=== PATIENT | female | born 1955 | race Caucasian/White ===

== ENCOUNTER 2019-02-23 13:53 | Emergency (ER) | payer OTHER ==
[2019-02-23 15:09] LABS: Absolute Lymphocytes (CBC) 2.5 K/uL (0.7-4.9); Basophils % 0.7 % (0-1.3); Hematocrit 40.7 % (36.0-45.0); MPV 7.5 fL (7.6-11.3); RBC Red Blood Cell Count 4.49 M/uL (3.86-4.86)
[2019-02-23 15:23] LABS: C-Reactive Protein 4.89 mg/L (<3.00); Potassium 3.4 mmol/L (3.5-5.1)
[2019-02-23] MEDS ORDERED: LIDOCAINE 1% MPF 30 ML VIAL ONE (15:53)
[2019-02-23] MEDS ORDERED: LIDOCAINE 1% MPF 5 ML VIAL ONE (15:55)
[2019-02-23 17:31] LABS: Appearance TURBID (CLEAR); Body Fluid Source SYNOVIAL; Color of fluid Yellow (COLORLESS)
[2019-02-23 17:33] LABS: Body Fluid WBC 25850 /mm^3
--- NOTE | 2019-02-23 17:45 | RAD REPORT ---
EXAM DESCRIPTION: RAD - Wrist Left 3 View - 02/23/2019 5:29 pm CLINICAL HISTORY: Swelling;Pain Pain COMPARISON: No comparisons FINDINGS: Soft tissue swelling is seen about the wrist. No fracture or dislocation seen.
--- NOTE | 2019-02-23 18:05 | ER ---
Nurse's Notes [facility] Name: Helga Farnsworth Age: 63 yrs Sex: Female : 1955 Arrival Date: 02/23/2019 Time: 13:56 Bed 13 Private MD: Werner Rooney R Diagnosis: Pain in left wrist Presentation: 02/23 14:00 Presenting complaint: Patient states: it started hurting yesterday, and it has been tw2 swollen and red and Dr. Rooney was worried about me being septic and he said it might just be gout but to come here. Transition of care: patient was not received from another setting of care. Onset of symptoms was February 23, 2019. Risk Assessment: Do you want to hurt yourself or someone else? Patient reports no desire to harm self or others. Initial Sepsis Screen: Does the patient meet any 2 criteria? No. Patient's initial sepsis screen is negative. Does the patient have a suspected source of infection? No. Patient's initial sepsis screen is negative. Care prior to arrival: None. 14:00 Method Of Arrival: Ambulatory tw2 14:00 Acuity: AARON 3 tw2 Triage Assessment: 14:01 General: Appears in no apparent distress. Behavior is calm, cooperative, appropriate tw2 for age. Pain: Complains of pain in left hand. Musculoskeletal: Swelling present in left hand. Historical: - Allergies: 14:04 HYDROCODONE; tw2 14:04 Iodine; IV contrast; tw2 - Home Meds: 14:04 metformin 1,000 mg oral tab 1 tab 2 times per day [Active]; tw2 lisinopril-hydrochlorothiazide 20-25 mg Oral tab 1 tab once daily [Active]; glimepiride 4 mg Oral tab 1 tab twice a day [Active]; trazodone 100 mg Oral tab 1 tab daily [Active]; cyclobenzaprine 10 mg oral tab [Active]; simvastatin 40 mg Oral tab 1 tab once daily [Active]; gabapentin 300 mg oral cap 2 caps nightly [Active]; basaglar 15 units sq [Active]; - PMHx: 14:04 Depression; Diabetes - NIDDM; Hyperlipidemia; Hypertension; tw2 - Immunization history:: Adult Immunizations. - Social history:: Smoking status: Patient uses tobacco products, smokes one pack cigarettes per day. - Ebola Screening: : Patient denies travel to an Ebola-affected area in the 21 days before illness onset. Screenin:12 Abuse screen: Denies threats or abuse. Nutritional screening: No deficits noted. tw2 Tuberculosis screening: No symptoms or risk factors identified. Fall Risk None identified. Assessment: 14:10 General: Appears in no apparent distress. comfortable, Behavior is calm, cooperative. rb1 Pain: Complains of pain in left wrist Pain currently is 8 out of 10 on a pain scale. Pain began 1 day ago. Neuro: Level of Consciousness is awake, alert, obeys commands, Oriented to person, place, time, situation. Cardiovascular: Capillary refill < 3 seconds is brisk in bilateral fingers. Respiratory: Airway is patent Respiratory effort is even, unlabored, Respiratory pattern is regular, symmetrical. GI: No signs and/or symptoms were reported involving the gastrointestinal system. : No signs and/or symptoms were reported regarding the genitourinary system. Derm: Skin is pink, warm \T\ dry. Musculoskeletal: Range of motion: limited in left hand and wrist Swelling present in left wrist and left hand. 15:00 Reassessment: Patient appears in no apparent distress at this time. No changes from rb1 previously documented assessment. 16:00 Reassessment: Patient appears in no apparent distress at this time. Patient and/or rb1 family updated on plan of care and expected duration. Pain level reassessed. Patient is alert, oriented x 3, equal unlabored respirations, skin warm/dry/pink. Set up for a wrist aspiration procedure. 16:15 Reassessment: Dr. Koo at pt. bedside performing wrist aspiration. rb1 16:50 Reassessment: Patient appears in no apparent distress at this time. Patient and/or rb1 family updated on plan of care and expected duration. Pain level reassessed. Patient is alert, oriented x 3, equal unlabored respirations, skin warm/dry/pink. Pt. is sitting in the bedside chair watching TV. 17:40 Reassessment: Patient appears in no apparent distress at this time. No changes from rb1 previously documented assessment. 18:20 Reassessment: Patient appears in no apparent distress at this time. Patient and/or rb1 family updated on plan of care and expected duration. Pain level reassessed. Patient is alert, oriented x 3, equal unlabored respirations, skin warm/dry/pink. Vital Signs: 14:01 BP 134 / 78; Pulse 102; Resp 17; Temp 97.8(O); Pulse Ox 97% on R/A; Weight 68.04 kg tw2 (R); Height 5 ft. 7 in. (170.18 cm); Pain 8/10; 15:40 BP 134 / 82; Pulse 95; Resp 16; Temp 98.0(O); Pulse Ox 96% on R/A; mh5 16:46 BP 134 / 82; Pulse 89; Resp 18; Temp 97.9(O); Pulse Ox 97% on R/A; mh5 17:39 BP 137 / 76; Pulse 88; Resp 17; Pulse Ox 95% on R/A; rb1 18:20 BP 124 / 73; Pulse 89; Resp 16; Pulse Ox 96% on R/A; rb1 14:01 Body Mass Index 23.49 (68.04 kg, 170.18 cm) tw2 ED Course: 13:56 Patient arrived in ED. mr 13:56 Werner Rooney MD is Private Physician. mr 14:01 Triage completed. tw2 14:01 Arm band placed on. tw2 14:04 Placed in gown. Bed in low position. Adult w/ patient. Warm blanket given. tw2 14:15 Frida Elkins FNP-C [facility]. kb 14:15 Fuad Koo MD is Attending Physician. kb 14:50 Inserted saline lock: 22 gauge in right forearm, using aseptic technique. Blood jl7 collected. 14:50 Initial lab(s) drawn, by va, sent to lab. First set of blood cultures drawn by va. jl7 16:42 Patria Laurent, RN is Primary Nurse. rb1 17:00 Second set of blood cultures drawn by va. mh5 17:06 Blood Culture Adult (2) Sent. mh5 17:29 Wrist Left (3 View) XRAY: base of thumb In Process Unspecified. EDMS 18:04 Werner Rooney MD is Referral Physician. kb 18:04 Max Yu MD is Referral Physician. kb 18:24 No provider procedures requiring assistance completed. rb1 18:25 IV discontinued, intact, bleeding controlled, No redness/swelling at site. Pressure iw dressing applied. Administered Medications: 16:10 Drug: Lidocaine (1 %) 1 vials Volume: 5 ml; Route: Infiltration; rb1 Outcome: 18:04 Discharge ordered by MD. foster 18:24 Discharged to home ambulatory, with family. iw 18:24 Condition: good 18:24 Discharge instructions given to patient, family, Instructed on discharge instructions, follow up and referral plans. Demonstrated understanding of instructions, follow-up care, medications, Prescriptions given X 2. 18:25 Patient left the ED. iw Signatures: Dispatcher [employer] EDMS Frida Elkins, RK-C V BLOCK SAW OPERATOR-Ckrobe Mercedes Beard Dianne Romero, RN RN iw Patria Laurent, RN RN rb1 Anai Rajput RN RN 2 [facility] Frankie Ortega RN RN jl7 Corrections: (The following items were deleted from the chart) 14:11 14:00 Presenting complaint: Patient states: it started hurting yesterday, and it has tw2 been swollen and red and Dr. Rooney was worried about me being septic and he said it might just be gout tw2 17:06 16:46 BP 134 / 82; Pulse 89bpm; Resp 18bpm; Pulse Ox 97% RA; mh5 mh5 17:06 15:40 BP 134 / 82; Pulse 95bpm; Resp 16bpm; Pulse Ox 96% RA; rb1 mh5
--- NOTE | 2019-02-23 18:06 | EDPHYS ---
Physician Documentation [facility] Name: Helga Farnsworth Age: 63 yrs Sex: Female : 1955 Arrival Date: 02/23/2019 Time: 13:56 Bed 13 Private MD: Werner Rooney R ED Physician Fuad Koo HPI: 02/23 15:01 This 63 yrs old Female presents to ER via Ambulatory with complaints of Wrist kb Pain. 15:01 The patient or guardian reports decreased range of motion, pain, swelling, tenderness. kb 15:02 The patient or guardian reports decreased range of motion, pain, swelling. The kb complaints affect the left wrist diffusely. Context: The problem was sustained at home, resulted from an unknown cause. Onset: The symptoms/episode began/occurred 2 day(s) ago. Modifying factors: The symptoms are alleviated by nothing, the symptoms are aggravated by nothing. Associated signs and symptoms: The patient has no apparent associated signs or symptoms. The patient has not experienced similar symptoms in the past. The patient has not recently seen a physician. Pt reports she went to Dr Rooney today for redness, swelling, pain and decreased ROM in left wrist. He sent her here for gout vs septic joint. Historical: - Allergies: 14:04 HYDROCODONE; tw2 14:04 Iodine; IV contrast; tw2 - Home Meds: 14:04 metformin 1,000 mg oral tab 1 tab 2 times per day [Active]; tw2 lisinopril-hydrochlorothiazide 20-25 mg Oral tab 1 tab once daily [Active]; glimepiride 4 mg Oral tab 1 tab twice a day [Active]; trazodone 100 mg Oral tab 1 tab daily [Active]; cyclobenzaprine 10 mg oral tab [Active]; simvastatin 40 mg Oral tab 1 tab once daily [Active]; gabapentin 300 mg oral cap 2 caps nightly [Active]; basaglar 15 units sq [Active]; - PMHx: 14:04 Depression; Diabetes - NIDDM; Hyperlipidemia; Hypertension; tw2 - Immunization history:: Adult Immunizations. - Social history:: Smoking status: Patient uses tobacco products, smokes one pack cigarettes per day. - Ebola Screening: : Patient denies travel to an Ebola-affected area in the 21 days before illness onset. ROS: 14:59 Constitutional: Negative for fever, chills, and weight loss, Cardiovascular: Negative kb for chest pain, palpitations, and edema, Respiratory: Negative for shortness of breath, cough, wheezing, and pleuritic chest pain, Abdomen/GI: Negative for abdominal pain, nausea, vomiting, diarrhea, and constipation, Back: Negative for injury and pain, : Negative for injury, bleeding, discharge, and swelling, Neuro: Negative for headache, weakness, numbness, tingling, and seizure. 14:59 MS/extremity: Positive for decreased range of motion, erythema, pain, swelling, of the left wrist. Exam: 14:59 Constitutional: This is a well developed, well nourished patient who is awake, alert, kb and in no acute distress. Head/Face: Normocephalic, atraumatic. ENT: Nares patent. No nasal discharge, no septal abnormalities noted. Tympanic membranes are normal and external auditory canals are clear. Oropharynx with no redness, swelling, or masses, exudates, or evidence of obstruction, uvula midline. Mucous membranes moist. Neck: Trachea midline, no thyromegaly or masses palpated, and no cervical lymphadenopathy. Supple, full range of motion without nuchal rigidity, or vertebral point tenderness. No Meningismus. Chest/axilla: Normal chest wall appearance and motion. Nontender with no deformity. No lesions are appreciated. Cardiovascular: Regular rate and rhythm with a normal S1 and S2. No gallops, murmurs, or rubs. Normal PMI, no JVD. No pulse deficits. Respiratory: Lungs have equal breath sounds bilaterally, clear to auscultation and percussion. No rales, rhonchi or wheezes noted. No increased work of breathing, no retractions or nasal flaring. Abdomen/GI: Soft, non-tender, with normal bowel sounds. No distension or tympany. No guarding or rebound. No evidence of tenderness throughout. Neuro: Awake and alert, GCS 15, oriented to person, place, time, and situation. Cranial nerves II-XII grossly intact. Motor strength 5/5 in all extremities. Sensory grossly intact. Cerebellar exam normal. Normal gait. 14:59 Musculoskeletal/extremity: Extremities: grossly normal except: noted in the left wrist: decreased ROM, erythema, pain, swelling, ROM: limited active range of motion, Circulation is intact in all extremities. Sensation intact. Vital Signs: 14:01 BP 134 / 78; Pulse 102; Resp 17; Temp 97.8(O); Pulse Ox 97% on R/A; Weight 68.04 kg tw2 (R); Height 5 ft. 7 in. (170.18 cm); Pain 8/10; 15:40 BP 134 / 82; Pulse 95; Resp 16; Temp 98.0(O); Pulse Ox 96% on R/A; mh5 16:46 BP 134 / 82; Pulse 89; Resp 18; Temp 97.9(O); Pulse Ox 97% on R/A; mh5 17:39 BP 137 / 76; Pulse 88; Resp 17; Pulse Ox 95% on R/A; rb1 18:20 BP 124 / 73; Pulse 89; Resp 16; Pulse Ox 96% on R/A; rb1 14:01 Body Mass Index 23.49 (68.04 kg, 170.18 cm) tw2 MDM: 14:15 Patient medically screened. kb 15:01 Data reviewed: vital signs, nurses notes. Data interpreted: Pulse oximetry: on room air kb is 97 %. Interpretation: normal. 15:58 ED course: Dr Koo at bedside to obtain sample of joint fluid.. kb 17:54 ED course: Consulted Jean Yu, given fluid cell count analysis, he believes is more rn inflammatory arthritis, mild elevation in CRP and WBC, but normal ESR and procalcitonin. Not enough fluid to evaluate for crystals, but could be gout or pseudogout. Pt afebrile, non-IV drug user, and improved ROM after joint aspiration . If gram stain neg for organisms, will dc home.. 18:03 Counseling: I had a detailed discussion with the patient and/or guardian regarding: the kb historical points, exam findings, and any diagnostic results supporting the discharge/admit diagnosis, lab results, radiology results, the need for outpatient follow up, a orthopedic surgeon, to return to the emergency department if symptoms worsen or persist or if there are any questions or concerns that arise at home. 02/23 14:29 Order name: CBC with Diff; Complete Time: 15:39 kb 02/23 14:29 Order name: Basic Metabolic Panel; Complete Time: 15:27 kb 02/23 14:29 Order name: Procalcitonin; Complete Time: 15:55 kb 02/23 14:29 Order name: Blood Culture Adult (2) kb 02/23 14:29 Order name: Sed Rate; Complete Time: 15:39 kb 02/23 14:29 Order name: CRP; Complete Time: 15:27 kb 02/23 14:29 Order name: IV Start; Complete Time: 16:43 kb 02/23 16:15 Order name: Body Fluid Culture kb 02/23 16:15 Order name: Fluid Cell Count,Body; Complete Time: 17:37 kb 02/23 17:04 Order name: Wrist Left (3 View) XRAY: base of thumb; Complete Time: 17:48 sp 02/23 18:00 Order name: Uric Acid; Complete Time: 07:04 kb Administered Medications: 16:10 Drug: Lidocaine (1 %) 1 vials Volume: 5 ml; Route: Infiltration; rb1 Disposition: 18:31 Co-signature as Attending Physician, Fuad Koo MD. rn Disposition: 02/23/19 18:04 Discharged to Home. Impression: Pain in left wrist. - Condition is Stable. - Discharge Instructions: Wrist Pain, [id number]. - Prescriptions for Tramadol 50 mg Oral Tablet - take 1 tablet by ORAL route every 8 hours as needed; 12 tablet. indomethacin 25 mg Oral capsule - take 1 capsule by ORAL route 3 times per day As needed with food; 30 capsule. - Medication Reconciliation Form, Thank You Letter, Antibiotic Education, Prescription Opioid Use form. - Follow up: Emergency Department; When: As needed; Reason: Worsening of condition. Follow up: Werner Rooney MD; When: 2 - 3 days; Reason: Recheck today's complaints, Continuance of care, Re-evaluation by your physician. Follow up: Max Yu MD; When: 2 - 3 days; Reason: Recheck today's complaints. Signatures: Dispatcher [employer] Frida Thompson, NATIONAL ACCOUNT REPRESENTATIVE-C NATIONAL ACCOUNT REPRESENTATIVE-Ckb Dianne Romero, Fuad Dumont RN, MD MD rn Barber, Rebecca, RN RN rb1 Anai Rajput RN RN tw2 Corrections: (The following items were deleted from the chart) 15:02 15:01 This 63 yrs old Female presents to ER via Ambulatory with complaints of kb Hand Pain. kb 18:04 16:15 FLUID CRYSTALS+U.LAB.BRZ ordered. EDMS EDMS 18:25 18:04 02/23/2019 18:04 Discharged to Home. Impression: Pain in left wrist. Condition is iw Stable. Forms are Medication Reconciliation Form, Thank You Letter, Antibiotic Education, Prescription Opioid Use. Follow up: Emergency Department; When: As needed; Reason: Worsening of condition. Follow up: Werner Rooney; When: 2 - 3 days; Reason: Recheck today's complaints, Continuance of care, Re-evaluation by your physician. Follow up: Max Yu; When: 2 - 3 days; Reason: Recheck today's complaints. kb
[2019-02-23 18:38] VITALS: TEMP 97.9
[2019-02-23 18:39] VITALS: BP 137/76; O2SAT 95
== END 2019-02-23 18:25 | disposition home or self-care (01) ==
LOC: ER 13:53
PROC: 0M9 Bursae and Ligaments, Drainage (ICD-10-PCS; principal; 2019-02-23)
DX: M25.532 Pain in left wrist (principal); I10 Essential (primary) hypertension; E11.9 Type 2 diabetes mellitus without complications; E78.5 Hyperlipidemia, unspecified; F17.210 Nicotine dependence, cigarettes, uncomplicated; F32.9 Major depressive disorder, single episode, unspecified; Z88.5 Allergy status to narcotic agent; Z91.041 Radiographic dye allergy status
CPT/HCPCS: 36415; 80048; 84145; 84550; 85025; 85652; 86140; 87040; 87070; 89050; 99284

== ENCOUNTER 2019-11-11 15:40 | Emergency (ER) | payer BC, OTHER ==
[2019-11-11] MEDS ORDERED: CEFTRIAXONE/SWI 1gm 1 GM/10 ML SYR ONE (16:47)
[2019-11-11] MEDS ORDERED: NA CHLORIDE 0.9% 500 ML ONE (16:47)
[2019-11-11 17:02] LABS: Absolute Lymphocytes (CBC) 1.1 K/uL (0.7-4.9); Basophils % 0.4 % (0-1.3); MPV 7.4 fL (7.6-11.3); RBC Red Blood Cell Count 4.39 M/uL (3.86-4.86)
[2019-11-11 17:13] LABS: BUN Blood Urea Nitrogen 18 mg/dL (7-18); Bicarbonate 30 mmol/L (21-32); Glucose Level 120 mg/dL (74-106); Potassium 3.2 mmol/L (3.5-5.1); Sodium Level 132 mmol/L (136-145)
--- NOTE | 2019-11-11 17:22 | RAD REPORT ---
EXAM DESCRIPTION: RAD - Chest Single View - 11/11/2019 5:08 pm CLINICAL HISTORY: left scapular pain Chest pain. COMPARISON: Chest Single View dated 05/12/2017; Chest Single View dated 05/11/2017; Chest Pa And Lat ( 2 Views) dated 02/11/2016; CHEST PA AND LAT 2 VIEW dated 12/19/2009 FINDINGS: Portable technique limits examination quality. Interstitial lung opacities are present bilaterally suspicious for interstitial pneumonitis. Airspace opacity in left lung base likely represent superimposed pneumonia with moderate left pleural effusio n. The heart is normal in size. No displaced fractures.Follow-up CT chest may be useful for further e valuation.
--- NOTE | 2019-11-11 18:32 | RAD REPORT ---
EXAM DESCRIPTION: CT - Thorax Wo Con CLINICAL HISTORY: Chest pain left scapular pain COMPARISON: Chest For Pe Angio dated 05/12/2017 FINDINGS: Emphysematous changes are present throughout the lungs. A large irregular mass is as seen involving the mediastinum, in the anterior mediastinum measuring 6.6 x 5.4 cm, with evidence of bulky adenopathy in the precarinal region measuring 3.7 x 2 4 cm and sub- carinal region measuring approxi mately 6.0 x 5.3 cm. Small moderate partially loculated left pleural effusion is seen. No pneumothora x. Poorly defined linear opacities are present throughout left lung. Full assessment limited by lack of IV contrast. Small pericardial effusion is possible. No destructive bone lesion. All CT scans are performed using dose optimization technique as appropriate and may include automated exposure control or mA/KV adjustment according to patient size. 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 Primary differential would include lymphoma or lung malignancy with metastatic adenopathy.Full assessment is limited by the lack of IV contrast. Small to moderate partially loculated left pleural effusion.
--- NOTE | 2019-11-11 19:14 | ER ---
Nurse's Notes [facility] Name: Helga Farnsworth Age: 64 yrs Sex: Female : 1955 Arrival Date: 11/11/2019 Time: 15:42 Bed 8 Private MD: Werner Rooney R Diagnosis: Left scapular pain, mediatinal mass, loculated left pleural effusion Presentation: 11/10 16:11 Chief complaint: Patient states: L shoulder pain radiating to her back. pt rates 9/10. ks7 Ebola Screen: Patient negative for fever greater than or equal to 101.5 degrees Fahrenheit, and additional compatible Ebola Virus Disease symptoms Patient denies exposure to infectious person. Patient denies travel to an Ebola-affected area in the 21 days before illness onset. 16:11 Method Of Arrival: Ambulatory ks7 17:56 Acuity: AARON 3 iw 19:12 Coronavirus screen: At this time, the client does not indicate any symptoms associated jd3 with coronavirus-19. Initial Sepsis Screen: Does the patient meet any 2 criteria? No. Patient's initial sepsis screen is negative. Does the patient have a suspected source of infection? No. Patient's initial sepsis screen is negative. Risk Assessment: Do you want to hurt yourself or someone else? Patient reports no desire to harm self or others. Onset of symptoms was November 11, 2019. Triage Assessment: 16:13 General: Appears uncomfortable, slender, Behavior is cooperative. Pain: Complains of ks7 pain in left shoulder Pain radiates to back Pain currently is 9 out of 10 on a pain scale. Quality of pain is described as aching. Musculoskeletal: Reports pain in left shoulder since this am. Historical: - Allergies: 16:13 HYDROCODONE; ks7 16:13 Iodine; IV contrast; ks7 - PMHx: 16:13 Depression; Diabetes - NIDDM; Hyperlipidemia; Hypertension; ks7 - PSHx: 16:13 Hysterectomy; Hernia repair; Cholecystectomy; ks7 - Immunization history:: Adult Immunizations up to date. - Social history:: Smoking status: Patient reports the use of cigarette tobacco products, smokes one-half pack cigarettes per day. Screenin:15 Abuse screen: Denies threats or abuse. Denies injuries from another. Nutritional ks7 screening: No deficits noted. Tuberculosis screening: No symptoms or risk factors identified. Fall Risk None identified. Assessment: 16:15 General: pt comes in from home, ambulatory, c/o pain in L shoulder radiating to her ks7 back 9/10 pain. 16:55 Reassessment: pt ambulated to bathroom independently. denies dizziness. urine collected.ks7 18:03 Reassessment: VS REMAIN STABLE ON MONITOR. PT TO CT FOR CT THORAX. bp 19:12 Reassessment: Patient states feeling better. General: Appears in no apparent distress. jd3 uncomfortable, Behavior is calm, cooperative, appropriate for age. Pain: Denies pain. Neuro: Level of Consciousness is awake, alert, obeys commands, Oriented to person, place, time, situation. Cardiovascular: Denies chest pain, Capillary refill < 3 seconds Patient's skin is warm and dry. Respiratory: Airway is patent Respiratory effort is even, unlabored, Respiratory pattern is regular, symmetrical. GI: No signs and/or symptoms were reported involving the gastrointestinal system. : No signs and/or symptoms were reported regarding the genitourinary system. EENT: No signs and/or symptoms were reported regarding the EENT system. Derm: Skin is intact, Skin is dry, Skin is normal, Skin temperature is warm. Musculoskeletal: Circulation, motion, and sensation intact. Range of motion: intact in all extremities. 19:47 Reassessment: Patient appears in no apparent distress at this time. Patient and/or jd3 family updated on plan of care and expected duration. Pain level reassessed. Patient is alert, oriented x 3, equal unlabored respirations, skin warm/dry/pink. Patient states feeling better. Vital Signs: 16:09 BP 138 / 77; Pulse 110; Resp 18; Pulse Ox 96% on R/A; ks7 18:03 BP 130 / 59; Pulse 108; Resp 17; Pulse Ox 96% ; bp 18:55 BP 155 / 78; Pulse 112; Resp 18; Pulse Ox 96% ; Pain 0/10; ks7 19:11 BP 156 / 86; Pulse 106; Resp 18 S; Pulse Ox 95% on R/A; jd3 ED Course: 15:42 Patient arrived in ED. ag5 15:43 Werner Rooney MD is Private Physician. ag5 16:08 Lucia Auguste, SOHAM is Primary Nurse. ks7 16:13 Arm band placed on. ks7 16:15 Resting quietly. ks7 16:15 Patient has correct armband on for positive identification. Bed in low position. Call ks7 light in reach. Side rails up X2. 16:15 No provider procedures requiring assistance completed. ks7 16:17 Juwan Gray MD is Attending Physician. kdr 16:42 Initial lab(s) drawn, First set of blood cultures drawn. Inserted saline lock: 22 gauge kj1 in left antecubital area, using aseptic technique. Blood collected. 17:05 Blood Culture Adult (2) Sent. ks7 17:08 CXR XRAY In Process Unspecified. EDMS 17:56 Triage completed. iw 18:10 Thorax Wo Con In Process Unspecified. EDMS 18:30 pt ambulated to bathroom independently. steady on feet. ks7 19:12 Werner Rooney MD is Referral Physician. kdr 19:47 IV discontinued, intact, bleeding controlled, No redness/swelling at site. Pressure jd3 dressing applied. Administered Medications: 16:40 Drug: NS 0.9% 500 ml Route: IV; Rate: bolus; Site: left antecubital; bp 16:40 Drug: Rocephin - (cefTRIAXone) 1 grams Route: IVPB; Infused Over: 30 mins; Site: left bp antecubital; Outcome: 19:13 Discharge ordered by . kdr 19:47 Discharged to home ambulatory, with family. jd3 19:47 Condition: stable 19:47 Discharge instructions given to patient, Instructed on discharge instructions, follow up and referral plans. medication usage, Demonstrated understanding of instructions, follow-up care, medications, Prescriptions given X 2. 19:48 Patient left the ED. jd3 Signatures: Dispatcher [employer] EDAL Juwan Gray MD MD kdr Dianne Romero RN RN iw Ced Rodrigez RN RN jDean Hay RN RN bp Deepak Santana ag5 Marlys Elkins kj1 Lucia Auguste, SOHAM RN ks7
--- NOTE | 2019-11-11 19:14 | EDPHYS ---
Physician Documentation [facility] Name: Helga Farnsworth Age: 64 yrs Sex: Female : 1955 Arrival Date: 11/11/2019 Time: 15:42 Bed 8 Private MD: Werner Rooney R ED Physician Juwan Gray HPI: 11/11 11:10 This 64 yrs old Female presents to ER via Ambulatory with complaints of kdr Shoulder Pain. 11:10 The patient or guardian complains of pain, that is acute, The patient is c/o pain in kdr the left scapular region without history of trauma. Left scapula. Context: The problem was sustained at home. Onset: The symptoms/episode began/occurred gradually, at an unknown time. Modifying factors: the symptoms are alleviated by nothing. The symptoms are aggravated by nothing. Associated signs and symptoms: The patient has no apparent associated signs or symptoms. Severity of symptoms: At their worst the symptoms were mild, moderate, just prior to arrival, in the emergency department the symptoms are unchanged. Treatment prior to arrival includes: no previous treatment. The patient has not experienced similar symptoms in the past. The patient has not recently seen a physician. Historical: - Allergies: 11/10 16:13 HYDROCODONE; ks7 16:13 Iodine; IV contrast; ks7 - PMHx: 16:13 Depression; Diabetes - NIDDM; Hyperlipidemia; Hypertension; ks7 - PSHx: 16:13 Hysterectomy; Hernia repair; Cholecystectomy; ks7 - Immunization history:: Adult Immunizations up to date. - Social history:: Smoking status: Patient reports the use of cigarette tobacco products, smokes one-half pack cigarettes per day. ROS: 11/11 11:10 Constitutional: Negative for fever, chills, and weight loss, Eyes: Negative for injury, kdr pain, redness, and discharge, ENT: Negative for injury, pain, and discharge, Neck: Negative for injury, pain, and swelling, Cardiovascular: Negative for chest pain, palpitations, and edema, Respiratory: Negative for shortness of breath, cough, wheezing, and pleuritic chest pain, Abdomen/GI: Negative for abdominal pain, nausea, vomiting, diarrhea, and constipation, : Negative for injury, bleeding, discharge, and swelling, MS/Extremity: Negative for injury and deformity, Skin: Negative for injury, rash, and discoloration, Neuro: Negative for headache, weakness, numbness, tingling, and seizure activity. Psych: Negative for depression, anxiety, suicide ideation, homicidal ideation, and hallucinations, Allergy/Immunology: Negative for hives, rash, and allergies, Endocrine: Negative for neck swelling, polydipsia, polyuria, polyphagia, and marked weight changes, Hematologic/Lymphatic: Negative for swollen nodes, abnormal bleeding, and unusual bruising. Back: Positive for pain at rest, of the left scapular area. Exam: 11:10 Constitutional: This is a well developed, well nourished patient who is awake, alert, kdr and in no acute distress. Head/Face: Normocephalic, atraumatic. Eyes: Pupils equal round and reactive to light, extra-ocular motions intact. Lids and lashes normal. Conjunctiva and sclera are non-icteric and not injected. Cornea within normal limits. Periorbital areas with no swelling, redness, or edema. Neck: Trachea midline, no thyromegaly or masses palpated, and no cervical lymphadenopathy. Supple, full range of motion without nuchal rigidity, or vertebral point tenderness. No Meningismus. Chest/axilla: Normal chest wall appearance and motion. Nontender with no deformity. No lesions are appreciated. Cardiovascular: Regular rate and rhythm with a normal S1 and S2. No gallops, murmurs, or rubs. Normal PMI, no JVD. No pulse deficits. Respiratory: Lungs have equal breath sounds bilaterally, clear to auscultation and percussion. No rales, rhonchi or wheezes noted. No increased work of breathing, no retractions or nasal flaring. Abdomen/GI: Soft, non-tender, with normal bowel sounds. No distension or tympany. No guarding or rebound. No evidence of tenderness throughout. Back: No spinal tenderness. No costovertebral tenderness. Full range of motion. Skin: Warm, dry with normal turgor. Normal color with no rashes, no lesions, and no evidence of cellulitis. MS/ Extremity: Pulses equal, no cyanosis. Neurovascular intact. Full, normal range of motion. Neuro: Awake and alert, GCS 15, oriented to person, place, time, and situation. Cranial nerves II-XII grossly intact. Motor strength 5/5 in all extremities. Sensory grossly intact. Cerebellar exam normal. Normal gait. Psych: Awake, alert, with orientation to person, place and time. Behavior, mood, and affect are within normal limits. Vital Signs: 11/10 16:09 BP 138 / 77; Pulse 110; Resp 18; Pulse Ox 96% on R/A; ks7 18:03 BP 130 / 59; Pulse 108; Resp 17; Pulse Ox 96% ; bp 18:55 BP 155 / 78; Pulse 112; Resp 18; Pulse Ox 96% ; Pain 0/10; ks7 19:11 BP 156 / 86; Pulse 106; Resp 18 S; Pulse Ox 95% on R/A; jd3 MDM: 19:13 Patient medically screened. [facility] 11/11 11:10 Data reviewed: vital signs, nurses notes, lab test result(s), radiologic studies. kdr Counseling: I had a detailed discussion with the patient and/or guardian regarding: the historical points, exam findings, and any diagnostic results supporting the discharge/admit diagnosis, lab results, radiology results, the need for outpatient follow up. 11/10 16:26 Order name: CBC with Diff; Complete Time: 17:55 [facility] 11/10 16:26 Order name: Chem 7; Complete Time: 17:55 [facility] 11/10 16:26 Order name: CXR XRAY; Complete Time: 17:55 [facility] 11/10 16:26 Order name: Blood Culture Adult (2) kdr 11/10 16:26 Order name: Lactate; Complete Time: 17:55 [facility] 11/10 16:26 Order name: Procalcitonin; Complete Time: 17:55 [facility] 11/10 18:01 Order name: Thorax Wo Con; Complete Time: 19:11 EDMS Administered Medications: 11/10 16:40 Drug: NS 0.9% 500 ml Route: IV; Rate: bolus; Site: left antecubital; bp 16:40 Drug: Rocephin - (cefTRIAXone) 1 grams Route: IVPB; Infused Over: 30 mins; Site: left bp antecubital; Disposition: 11/11/19 19:13 Discharged to Home. Impression: Left scapular pain, mediatinal mass, loculated left pleural effusion. - Condition is Stable. - Discharge Instructions: Shoulder Pain, Ufct-cm-Orjj, Lung Cancer. - Prescriptions for Tramadol 50 mg Oral Tablet - take 1 tablet by ORAL route every 8 hours as needed; 16 tablet. Albuterol Sulfate 90 mcg/actuation - inhale 1-2 puff by INHALATION route every 4-6 hours; 1 Inhaler. - Medication Reconciliation Form, Thank You Letter form. - Follow up: Werner Rooney MD; When: 2 - 3 days; Reason: If symptoms return, Further diagnostic work-up, Recheck today's complaints, Continuance of care, Re-evaluation by your physician. - Problem is new. - Symptoms are unchanged. Signatures: Dispatcher [employer] [facility] Juwan Gray MD MD kdr Ced Rodrigez RN RN jd3 Faby, Dean, RN RN bp Lucia Auguste RN RN ks7 Corrections: (The following items were deleted from the chart) 18:02 17:58 Chest For PE Angio+CT.RAD.BRZ ordered. [facility] 19:48 19:13 11/11/2019 19:13 Discharged to Home. Impression: Left scapular pain, mediatinal jd3 mass, loculated left pleural effusion. Condition is Stable. Forms are Medication Reconciliation Form, Thank You Letter, Antibiotic Education, Prescription Opioid Use. Follow up: Werner Rooney; When: 2 - 3 days; Reason: If symptoms return, Further diagnostic work-up, Recheck today's complaints, Continuance of care, Re-evaluation by your physician. Problem is new. Symptoms are unchanged. kdr
[2019-11-11 19:58] VITALS: BP 156/86; O2SAT 95
== END 2019-11-11 19:48 | disposition home or self-care (01) ==
LOC: ER 15:40
DX: J90 Pleural effusion, not elsewhere classified (principal); J98.59 Other diseases of mediastinum, not elsewhere classified; I10 Essential (primary) hypertension; F17.210 Nicotine dependence, cigarettes, uncomplicated; Z88.5 Allergy status to narcotic agent; Z91.041 Radiographic dye allergy status
CPT/HCPCS: 87040 ×2; 85025; 80048; 36415; 83605; 84145; 71250; 71045; 96374; 99284; J0696; J7040

== ENCOUNTER 2019-11-18 17:49 | Observation (INO) | payer BC ==
--- NOTE | 2019-11-18 20:08 | RAD REPORT ---
EXAM DESCRIPTION: RAD - Chest Single View - 11/18/2019 7:48 pm CLINICAL HISTORY: SOB Chest pain. COMPARISON: Chest Single View dated 11/11/2019; Chest Single View dated 05/12/2017; Chest Single View dated 05/11/2017; Chest Pa And Lat (2 Views) dated 02/11/2016; Thorax Wo Con dated 11/11/2019 FINDINGS: Portable technique limits examination quality. Bilateral interstitial lung opacities are present, unchanged. Small moderate left pleural effusion is also stable. The heart is mildly enlarged in size. No displaced fractures. IMPRESSION: Stable chest since 11/11/2019.
[2019-11-18 20:11] LABS: Absolute Lymphocytes (CBC) 1.1 K/uL (0.7-4.9); Basophils % 0.3 % (0-1.3); Hematocrit 37.8 % (36.0-45.0); Lymphocytes % 11.5 % (15.3-44.8); RBC Red Blood Cell Count 4.08 M/uL (3.86-4.86)
[2019-11-18 20:19] LABS: Protime INR 1.11
[2019-11-18 20:52] LABS: Albumin 3.1 g/dL (3.4-5.0); Bilirubin Direct 0.2 mg/dL (0-0.2); Bilirubin Total 0.6 mg/dL (0.2-1.0); Magnesium 1.5 mg/dL (1.8-2.4); Protein, Total 7.6 g/dL (6.4-8.2); Troponin (Emerg Dept Use Only) 0.05 ng/mL (0.0-0.045)
[2019-11-18 20:54] LABS: Potassium 2.6 mmol/L (3.5-5.1)
[2019-11-18] MEDS ORDERED: ASPIRIN 81 MG CHEWABLE TABLET ONE (21:18)
[2019-11-18] MEDS ORDERED: POTASSIUM CL SA 10 MEQ TAB PO ONE (21:18)
--- NOTE | 2019-11-18 21:52 | ER ---
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 Weakness, ll1 dizzy, CP, SOB for 1 week getting worse. 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 Daughter requests transfer to [facility]. Coronavirus screen: Client denies travel out of the [place] in the last 14 days. The client reports previous COVID testing was negative. Ebola Screen: Patient denies travel to an Ebola-affected area in the 21 days before illness onset. Initial Sepsis Screen: Does the patient meet any 2 criteria? HR > 90 bpm. Risk Assessment: Do you want to hurt yourself or someone else? Patient reports no desire to harm self or others. Onset of symptoms was November 12, 2019. 18:00 Method Of Arrival: Wheelchair ll1 18:00 Acuity: AARON 3 ll1 20:05 Initial Sepsis Screen: Does the patient have a suspected source of infection? No. ao Patient's initial sepsis screen is negative. Historical: - Allergies: 18:05 HYDROCODONE; ll1 18:05 Iodine; IV contrast; ll1 - PMHx: 18:05 Depression; Hypertension; Hyperlipidemia; Diabetes - NIDDM; mediastinal mass; ll1 - PSHx: 18:05 Hernia repair; Hysterectomy; Cholecystectomy; ll1 - Immunization history:: Flu vaccine is not up to date. - Social history:: Smoking status: Patient/guardian denies using tobacco, Stopped _ months ago .1 Patient/guardian denies using alcohol, street drugs. Screenin:04 Abuse screen: Denies threats or abuse. Denies injuries from another. Nutritional ao screening: No deficits noted. Tuberculosis screening: No symptoms or risk factors identified. Fall Risk None identified. Assessment: 20:01 General: Appears in no apparent distress. comfortable, Behavior is calm, cooperative, ao appropriate for age. Pain: Denies pain. Pain does not radiate. Pain began 2-3 days ago. Neuro: Level of Consciousness is awake, alert, obeys commands, Oriented to person, place, time, situation, Appropriate for age Moves all extremities. Full function Speech is normal, Facial symmetry appears normal. Cardiovascular: Capillary refill < 3 seconds Patient's skin is warm and dry. Respiratory: Airway is patent Respiratory effort is even, unlabored, Respiratory pattern is regular, symmetrical. GI: Abdomen is non-distended. : No signs and/or symptoms were reported regarding the genitourinary system. EENT: No signs and/or symptoms were reported regarding the EENT system. Derm: Skin is intact, Skin is pink, warm \T\ dry. normal, Skin temperature is warm. Musculoskeletal: Circulation, motion, and sensation intact. Range of motion: intact in all extremities. 22:28 Reassessment: please call pt's daughter Alejandrina with updates on pt's condition [phone]. 23:38 Reassessment: Called [facility] to give nursing report as was told by charge nurse that ao nurse is not ready and will called back when ready. 23:46 [facility]ass[facility] ao Vital Signs: 18:00 BP 103 / 58; Pulse 110; Resp 18; Temp 98.4; Pulse Ox 96% on R/A; Weight 56.7 kg; Height ll1 5 ft. 7 in. (170.18 cm); Pain 8/10; 20:23 BP 110 / 62; Pulse 110; Resp 22; Pulse Ox 96% ; ao 18:00 Body Mass Index 19.58 (56.70 kg, 170.18 cm) ll1 ED Course: 17:53 Patient arrived in ED. fj1 18:04 Triage completed. ll1 18:05 Arm band placed on. ll1 19:01 William Miguel MD is Attending Physician. mh7 19:31 Dejan Gustafson, SOHAM is Primary Nurse. ao 20:00 Basic Metabolic Panel Sent. ao 20:00 CBC with Diff Sent. ao 20:00 LFT's Sent. ao 20:00 Magnesium Sent. ao 20:00 NT PRO-BNP Sent. ao 20:00 PT-INR Sent. ao 20:00 Troponin (emerg Dept Use Only) Sent. ao 20:05 Patient has correct armband on for positive identification. surveillance monitor on. Pulse ao ox on. NIBP on. 20:05 Inserted saline lock: 20 gauge in left antecubital area, using aseptic technique. Blood ao collected. Patient maintains SpO2 saturation greater than 95% on room air. 21:50 Paul Blackwood is Hospitalizing Provider. [facility] 23:46 No provider procedures requiring assistance completed. Patient admitted, IV remains in ao place. Administered Medications: 21:13 Drug: Potassium Chloride 40 mEq Route: PO; ao 23:00 Follow up: Response: No adverse reaction ao 21:14 Drug: Aspirin Chewable Tablet 324 mg Route: PO; ao 11/18 01:19 Follow up: Response: No adverse reaction ao Outcome: 11/17 21:51 Decision to Hospitalize by Provider. [facility] 23:55 Admitted to Tele accompanied by tech, via wheelchair, room 223, with chart, Report bb called to Tung ROUSSEAU 23:55 Condition: stable 23:55 Instructed on the need for admit. 23:56 Patient left the ED. bb Signatures: Itzel Tarango RN RN Dejan Dalton RN RN Dalton Crocker fj1 Som Hull RN RN ll1 William Miguel MD MD 7
--- NOTE | 2019-11-18 21:52 | EDPHYS ---
Physician Documentation [facility] Name: Helga Farnsworth Age: 64 yrs Sex: Female : 1955 Arrival Date: 11/18/2019 Time: 17:53 Bed 17 Private MD: ED Physician William Miguel HPI: 11/17 20:34 This 64 yrs old Female presents to ER via Wheelchair with complaints of Chest mh7 Pain, Breathing Difficulty, Weakness. 20:34 The patient or guardian reports chest pain that is located primarily in the anterior 7 chest wall, bilaterally. Onset:. 20:34 Onset: 1 week(s) ago. The pain does not radiate. Associated signs and symptoms: 7 Pertinent positives: dizziness, shortness of breath, Pertinent negatives: abdominal pain, cough, diaphoresis, headache, lower extremity pain, lower extremity swelling, nausea, near syncope, palpitations, recent travel, syncope, vomiting. The chest pain is described as aching, dull. Duration: The patient or guardian reports multiple episodes, that are intermittent, that wax and wane, with no pattern. Modifying factors: The symptoms are alleviated by remaining still, the symptoms are aggravated by exertion. Severity of pain: At its worst the pain was moderate yesterday, in the emergency department the pain has improved moderately. The patient has been recently seen at the [facility] Emergency Department, last week. Historical: - Allergies: 18:05 HYDROCODONE; ll1 18:05 Iodine; IV contrast; ll1 - PMHx: 18:05 Depression; Hypertension; Hyperlipidemia; Diabetes - NIDDM; mediastinal mass; ll1 - PSHx: 18:05 Hernia repair; Hysterectomy; Cholecystectomy; ll1 - Immunization history:: Flu vaccine is not up to date. - Social history:: Smoking status: Patient/guardian denies using tobacco, Stopped _ months ago .1 Patient/guardian denies using alcohol, street drugs. ROS: 20:34 Constitutional: Negative for fever, chills, and weight loss, Eyes: Negative for injury, mh7 pain, redness, and discharge, ENT: Negative for injury, pain, and discharge, Neck: Negative for injury, pain, and swelling, Abdomen/GI: Negative for abdominal pain, nausea, vomiting, diarrhea, and constipation, Back: Negative for injury and pain, : Negative for injury, bleeding, discharge, and swelling, MS/Extremity: Negative for injury and deformity, Skin: Negative for injury, rash, and discoloration, Neuro: Negative for headache, weakness, numbness, tingling, and seizure, Psych: Negative for depression, anxiety, suicide ideation, homicidal ideation, and hallucinations, Allergy/Immunology: Negative for hives, rash, and allergies, Endocrine: Negative for neck swelling, polydipsia, polyuria, polyphagia, and marked weight changes, Hematologic/Lymphatic: Negative for swollen nodes, abnormal bleeding, and unusual bruising. Exam: 20:34 Constitutional: This is a well developed, well nourished patient who is awake, alert, mh7 and in no acute distress. Head/Face: Normocephalic, atraumatic. Eyes: Pupils equal round and reactive to light, extra-ocular motions intact. Lids and lashes normal. Conjunctiva and sclera are non-icteric and not injected. Cornea within normal limits. Periorbital areas with no swelling, redness, or edema. Neck: Trachea midline, no thyromegaly or masses palpated, and no cervical lymphadenopathy. Supple, full range of motion without nuchal rigidity, or vertebral point tenderness. No Meningismus. Chest/axilla: Normal chest wall appearance and motion. Nontender with no deformity. No lesions are appreciated. Cardiovascular: Regular rate and rhythm with a normal S1 and S2. No gallops, murmurs, or rubs. Normal PMI, no JVD. No pulse deficits. 20:34 Abdomen/GI: Soft, non-tender, with normal bowel sounds. No distension or tympany. No guarding or rebound. No evidence of tenderness throughout. Back: No spinal tenderness. No costovertebral tenderness. Full range of motion. Skin: Warm, dry with normal turgor. Normal color with no rashes, no lesions, and no evidence of cellulitis. MS/ Extremity: Pulses equal, no cyanosis. Neurovascular intact. Full, normal range of motion. Neuro: Awake and alert, GCS 15, oriented to person, place, time, and situation. Cranial nerves II-XII grossly intact. Motor strength 5/5 in all extremities. Sensory grossly intact. Cerebellar exam normal. Normal gait. Psych: Awake, alert, with orientation to person, place and time. Behavior, mood, and affect are within normal limits. 20:34 Respiratory: mild respiratory distress is noted, Respirations: normal, Breath sounds: rhonchi, that are mild, are scattered, Respiratory rate: 22 Vital Signs: 18:00 BP 103 / 58; Pulse 110; Resp 18; Temp 98.4; Pulse Ox 96% on R/A; Weight 56.7 kg; Height ll1 5 ft. 7 in. (170.18 cm); Pain 8/10; 20:23 BP 110 / 62; Pulse 110; Resp 22; Pulse Ox 96% ; ao 18:00 Body Mass Index 19.58 (56.70 kg, 170.18 cm) ll1 MDM: 19:16 Patient medically screened. [facility] 21:48 Differential diagnosis: acute myocardial infarction, acute pericarditis, anxiety, [facility] coronary artery disease chest wall pain, congestive heart failure costochondritis, myocarditis, peptic ulcer disease, pleurisy, pneumonia, pneumothorax. HEART Score: History: Moderately Suspicious (1), ECG: Non specific repolarization disturbance / LBTB / PM (1), Age: > or = 65 years (2), Risk Factors: > or = 3 Risk factors for atherosclerotic disease (2), [Hypercholesterolemia] [Hypertension] [DM] Troponin: > 1 and < 3 x normal limit (1), Total Score = 7. The patient was given aspirin in the Emergency Department. Data reviewed: vital signs, nurses notes, old medical records, lab test result(s), cardiac enzymes, CBC, electrolytes, urinalysis, EKG, radiologic studies, plain films. Data interpreted: Pulse oximetry: on room air is 96 %. Interpretation: normal. Counseling: I had a detailed discussion with the patient and/or guardian regarding: the historical points, exam findings, and any diagnostic results supporting the discharge/admit diagnosis, lab results, radiology results, the need for further work-up and treatment in the hospital. 11/17 19:16 Order name: Basic Metabolic Panel [facility] 11/17 19:16 Order name: CBC with Diff [facility] 11/17 19:16 Order name: LFT's [facility] 11/17 19:16 Order name: Magnesium [facility] 11/17 19:16 Order name: NT PRO-BNP [facility] 11/17 19:16 Order name: PT-INR [facility] 11/17 19:16 Order name: Troponin (emerg Dept Use Only) [facility] 11/17 20:15 Order name: CBC with Automated Diff; Complete Time: 20:23 EDMS 08 20:22 Order name: Protime (+INR); Complete Time: 20:23 EDMS 11/17 20:53 Order name: Glucose, Ancillary Testing; Complete Time: 20:56 EDMS 11/17 20:54 Order name: Basic Metabolic Panel; Complete Time: 20:56 EDMS 11/17 20:54 Order name: Liver (Hepatic) Function; Complete Time: 20:56 EDMS 08 20:54 Order name: Troponin (Emerg Dept Use Only); Complete Time: 20:56 EDMS 08 20:54 Order name: NT PRO-BNP; Complete Time: 20:56 EDMS 11/17 19:16 Order name: XRAY Chest (1 view) [facility] 11/17 19:16 Order name: EKG; Complete Time: 19:17 [facility] 11/17 19:16 Order name: Cardiac monitoring; Complete Time: 20:00 [facility] 11/17 19:16 Order name: EKG - Nurse/Tech; Complete Time: 20:00 [facility] 11/17 19:16 Order name: IV Saline Lock; Complete Time: 20:01 [facility] 11/17 19:16 Order name: Labs collected and sent; Complete Time: 20:00 [facility] 11/17 19:16 Order name: O2 Per Protocol; Complete Time: 20:01 [facility] 11/17 19:16 Order name: O2 Sat Monitoring; Complete Time: 20:03 [facility] 11/17 20:10 Order name: RAD; Complete Time: 20:23 EDMS 11/17 20:54 Order name: Magnesium; Complete Time: 20:56 EDMS Administered Medications: 21:13 Drug: Potassium Chloride 40 mEq Route: PO; ao 23:00 Follow up: Response: No adverse reaction ao 21:14 Drug: Aspirin Chewable Tablet 324 mg Route: PO; ao 11/18 01:19 Follow up: Response: No adverse reaction ao Disposition: 05:32 Co-signature as Attending Physician, William Miguel MD. [facility] Disposition: 11/18/19 21:51 Hospitalization ordered by Paul Blackwood for Observation. Preliminary diagnosis are Chest Pain, Hypokalemia. - Bed requested for Telemetry/MedSurg (observation). - Status is Observation. bb - Condition is Stable. - Problem is new. - Symptoms have improved. Signatures: Dispatcher [employer] EDItzel Leal, RN RN Yvette Patel, SOHAM ROUSSEAU cg Dejan Gustafson, RN Som Vee RN RN ll1 William Miguel MD MD 7 Corrections: (The following items were deleted from the chart) 11/17 23:27 21:51 Hospitalization Ordered by Paul Blackwood for Observation. Preliminary diagnosis cg is Chest Pain; Hypokalemia. Bed requested for Telemetry/MedSurg (observation). Status is Observation. Condition is Stable. Problem is new. Symptoms have improved. [facility] 23:56 23:27 11/18/2019 21:51 Hospitalization Ordered by Paul Blackwood for Observation. bb Preliminary diagnosis is Chest Pain; Hypokalemia. Bed requested for Telemetry/MedSurg (observation). Status is Observation. Condition is Stable. Problem is new. Symptoms have improved. cg
--- NOTE | 2019-11-18 23:03 | P.HP ---
Certification for Inpatient Patient admitted to: Observation With expected LOS: >2 Midnights Practitioner: I am a practitioner with admitting privileges, knowledge of patient current condition, hospital course, and medical plan of care. Services: Services provided to patient in accordance with Admission requirements found in Title 42 Section 412.3 of the Code of Federal Regulations Patient History Date of Service: 11/18/19 Reason for admission: Chest pain History of Present Illness: 64-year-old woman with a history of hypertension, diabetes, former smoker, recently found to have the mediastinum mass 1 week ago presented emergency department with a complaint of chest pain of 1 week duration, which has gotten progressively worse. She rated her pain at 8/10 in maximum severity. Chest pain is worse with coughing and breathing. Patient also reports some dizziness and weakness. She denied any fever. She endorsed cough productive of brownish sputum. Her initial troponin is negative. EKG demonstrates sinus tachycardia. Chest x-ray demonstrated possible loculated left pleural effusion and mediastinal mass. Given her cardiac risk factors which include smoking, hyp ertension, diabetes she is placed under observation for ACS rule out. Allergies iodine Allergy (Mild, Verified 05/11/17 21:52) Itching/Hives/Rash hydrocodone Allergy (Verified 05/11/17 21:52) Unknown Home Medications: Glimepiride 4 mg PO BID 09/24/12 Lisinopril/Hydrochlorothiazide [Zestoretic 20-25 mg Tablet] 1 each PO DAILY 09/24/12 Metformin HCl [Glucophage*] 100 mg PO BID 09/24/12 Simvastatin [Zocor*] 40 mg PO BEDTIME 09/24/12 Trazodone HCl [Desyrel] 100 mg PO BEDTIME 09/24/12 Cyclobenzaprine [Flexeril*] 10 mg PO DAILY 05/11/17 Insulin Glargine,Hum.rec.anlog [Basaglar Kwikpen U-100] 15 unit SQ BID 05/11/17 - Past Medical/Surgical History Diabetic: Yes -: DM -: HTN -: Hypercholesterolemia -: Depression -: Restless Leg syndrome -: Gall bladder removed -: Hysterectomy -: Hernia -: Hemoroids removed -: Catarct Surgery - Family History Father -: Lung disease, Cancer Mother -: Heart disease, Diabetes, Cancer - Social History Smoking Status: Former smoker Alcohol use: No CD- Drugs: No Caffeine use: Yes Review of Systems Other: Except as documented, all other systems reviewed and negative. Physical Examination - Physical Exam General: Alert, In no apparent distress, Cachectic HEENT: Atraumatic, Normocephalic, Mucous membr. moist/pink Neck: Supple, JVD not distended Respiratory: Clear to auscultation bilaterally, Normal air movement Cardiovascular: No edema, Normal S1 S2, Other (Tachycardia) Capillary refill: <2 Seconds Gastrointestinal: Normal bowel sounds, Soft and benign, Non-distended, No tenderness Musculoskeletal: No swelling, No erythema Integumentary: No rashes Neurological: Normal strength at 5/5 x4 extr, Cranial nerves 3-12 intact - Studies Laboratory Data (last 24 hrs) 11/18/19 19:55: PT 13.1 H, INR 1.11 11/18/19 19:55: WBC 9.1 D, Hgb 12.8, Hct 37.8, Plt Count 373 11/18/19 19:55: Sodium 131 L, Potassium 2.6 L*, BUN 14, Creatinine 0.68, Glucose 112 H, Magnesium 1.5 L, Total Bilirubin 0.6, AST 28, ALT 17, Alkaline Phosphatase 95 Assessment and Plan - Problems (Diagnosis) (1) Mediastinal mass Current Visit: Yes Status: Acute (2) Diabetes mellitus type 2 Current Visit: No Status: Active (3) Hypertensive disorder, systemic arterial Onset Date: 05/12/17 Current Visit: No Status: Active (4) Chest pain Onset Date: 05/12/17 Current Visit: No Status: Acute - Plan I suspect chest pain is pleuritic and likely secondary to mediastinal mass and pleural effusion. Given patient has high cardiac risk factors, need to rule out ACS. Place under observation. Trend troponin Start aspirin Stress test pending troponin result. Insulin sliding scale for glucose management. Pulmonary consult to assess for bronchoscopy for tissue biopsy. - Advance Directives Does patient have a Living Will: No Does patient have a Durable POA for Healthcare: No
[2019-11-19] MEDS ORDERED: ACETAMINOPHEN 500 MG TAB PO PRN (00:19)
[2019-11-19] MEDS ORDERED: MORPHINE 4 MG/ML SYR IV PRN (00:19)
[2019-11-19 00:26] VITALS: BMI 19.4
[2019-11-19] MEDS: HEPARIN 5000 UNIT/ML 1 ML VIAL SQ SCH ×3 (01:12→20:57)
[2019-11-19 01:26] LABS: Troponin I 0.05 ng/mL (0.0-0.045)
[2019-11-19 06:30] LABS: Absolute Lymphocytes (CBC) 1.1 K/uL (0.7-4.9); Basophils % 0.5 % (0-1.3); MPV 7.6 fL (7.6-11.3); RBC Red Blood Cell Count 3.77 M/uL (3.86-4.86)
[2019-11-19 06:34] LABS: BUN Blood Urea Nitrogen 13 mg/dL (7-18); Bicarbonate 33 mmol/L (21-32); Glucose Level 175 mg/dL (74-106); Potassium 3.1 mmol/L (3.5-5.1); Sodium Level 135 mmol/L (136-145)
[2019-11-19] MEDS: KCL 20 MEQ/100 mL IVPB 20 MEQ/100 ML BAG IV SCH ×3 (09:00→11:00)
[2019-11-19] MEDS: METOPROLOL TAR 50 MG TAB PO SCH ×3 (09:00→20:56)
--- NOTE | 2019-11-19 09:01 | P.PN ---
Subjective Date of Service: 11/19/19 Chief Complaint: Chest pain Patient states her chest pain has improved though still experiencing a little bit on the left anterior chest wall. Troponin stable at 0.05. Low suspicion for ACS. Physical Examination - Vital Signs Temperature: 97 F Blood Pressure: 124/59 Pulse: 106 Respirations: 16 Pulse Ox (%): 96 - Physical Exam General: Alert, In no apparent distress Neck: Supple, JVD not distended Respiratory: Clear to auscultation bilaterally, Normal air movement Cardiovascular: No edema, Regular rate/rhythm, Normal S1 S2 Gastrointestinal: Normal bowel sounds, Soft and benign, No tenderness Musculoskeletal: No swelling, No erythema Integumentary: No rashes Neurological: Normal strength at 5/5 x4 extr - Studies Laboratory Data (last 24 hrs) 11/18/19 19:55: PT 13.1 H, INR 1.11 11/18/19 19:55: WBC 9.1 D, Hgb 12.8, Hct 37.8, Plt Count 373 11/18/19 19:55: Sodium 131 L, Potassium 2.6 L*, BUN 14, Creatinine 0.68, Glucose 112 H, Magnesium 1.5 L, Total Bilirubin 0.6, AST 28, ALT 17, Alkaline Phosphatase 95 Assessment And Plan - Current Problems (Diagnosis) (1) Mediastinal mass Current Visit: Yes Status: Acute (2) Diabetes mellitus type 2 Current Visit: No Status: Active (3) Hypertensive disorder, systemic arterial Onset Date: 05/12/17 Current Visit: No Status: Active (4) Chest pain Onset Date: 05/12/17 Current Visit: No Status: Acute - Plan I suspect chest pain is pleuritic and likely secondary to mediastinal mass and pleural effusion. Troponin trended flat and low suspicion for ACS. Nuclear stress test today given patient high cardiac risk factors. Consult to cardiology Contain aspirin Patient to be seen by pulmonary. Start empiric Levaquin. Insulin sliding scale for glucose management.
[2019-11-19] MEDS: INSULIN -REGULAR HUMAN 50 UNIT/0.5 ML ML SQ SCH ×4 (09:14→20:55)
[2019-11-19] MEDS: NICOTINE 21 MG/PAT TD SCH (09:15)
[2019-11-19] MEDS ORDERED: NA CHLORIDE 0.9% 250 ML ONE (09:17)
[2019-11-19] MEDS: ASPIRIN EC 81 MG TAB PO SCH (09:17)
[2019-11-19] MEDS ORDERED: Levofloxacin 750mg IV 750 MG/150 ML BAG IV SCH (10:00)
[2019-11-19] MEDS ORDERED: ONDANSETRON 4 MG/2 ML VIAL IV PRN (10:30)
[2019-11-19] MEDS ORDERED: HYDROCODONE/APAP 5/325 MG TAB PO PRN (10:52)
[2019-11-19] MEDS: ARFORMOTEROL TARTRATE 15 MCG/2 ML VIAL.NEB NEB SCH ×2 (10:53→19:45)
--- NOTE | 2019-11-19 10:58 | P.CNS ---
Date of Consult: 11/19/19 Reason for Consult: Lung cancer Chief Complaint: Chest pain History of Present Illness: Patient is 64-year-old lady admitted from the emergency room with left-sided chest pain she came here about a week ago was informed that she a lung cancer she has a large mediastinal mass on the left side adjacent to the sternum lost about 20 lb in weight a pain started about a week ago heavy smoker Allergies iodine Allergy (Mild, Verified 05/11/17 21:52) Itching/Hives/Rash hydrocodone Allergy (Verified 05/11/17 21:52) Unknown Home Medications: Glimepiride 4 mg PO BID 09/24/12 Lisinopril/Hydrochlorothiazide [Zestoretic 20-25 mg Tablet] 1 each PO DAILY 09/24/12 Metformin HCl [Glucophage*] 1,000 mg PO BID 09/24/12 Simvastatin [Zocor*] 40 mg PO BEDTIME 09/24/12 Cyclobenzaprine [Flexeril*] 10 mg PO BEDTIME 05/11/17 Insulin Glargine,Hum.rec.anlog [Basaglar Kwikpen U-100] 20 unit SQ BID 05/11/17 Folic Acid 1 tab PO DAILY 11/19/19 Gabapentin [Neurontin*] 200 mg PO BEDTIME 11/19/19 Methotrexate [Methotrexate*] 8 cap PO SEECOM 11/19/19 - Past Medical/Surgical History Diabetic: Yes -: DM -: HTN -: Hypercholesterolemia -: Depression -: Restless Leg syndrome -: Gall bladder removed -: Hysterectomy -: Hernia -: Hemoroids removed -: Catarct Surgery -: appendectomy - Family History Father Medical History: Lung disease, Cancer Notes: colon ca Mother Medical History: Heart disease, Diabetes, Cancer Notes: uterine - Social History Smoking Status: Current every day smoker Alcohol use: No CD- Drugs: No Caffeine use: Yes Place of Residence: Home Review of Systems General: Weakness, As per HPI Respiratory: Cough, Shortness of Breath Cardiovascular: Chest Pain Physical Examination Temp Pulse Resp BP Pulse Ox 97 F 106 H 16 124/59 L 96 11/19/19 09:01 11/19/19 09:01 11/19/19 09:01 11/19/19 09:01 11/19/19 09:01 General: Alert, Oriented x3, Mild distress Respiratory: Clear to auscultation bilaterally, Diminished Cardiovascular: No edema, Regular rate/rhythm, Normal S1 S2 Gastrointestinal: Normal bowel sounds, Soft and benign Laboratory Data (last 24 hrs) 11/18/19 19:55: PT 13.1 H, INR 1.11 11/18/19 19:55: WBC 9.1 D, Hgb 12.8, Hct 37.8, Plt Count 373 11/18/19 19:55: Sodium 131 L, Potassium 2.6 L*, BUN 14, Creatinine 0.68, Glucose 112 H, Magnesium 1.5 L, Total Bilirubin 0.6, AST 28, ALT 17, Alkaline Phosphatase 95 - Problems (1) Lung cancer Current Visit: Yes Status: Acute Plan: Patient is 64 years of age admitted with chest pain she has a large left-sided lung mass with left-sided pleural effusion very close to the chest wall patient has advanced stage lung cancer will plan for pain control on bronchoscopy on Friday discuss with the patient the risk include bleeding infection and lung collapse also added steroids bronchodilators in pain relief saturation satisfactory Qualifiers: Laterality: left
[2019-11-19] MEDS ORDERED: POTASSIUM CL SA 10 MEQ TAB PO ONE (11:05)
[2019-11-19] MEDS ORDERED: TRAMADOL HCL 50 MG TAB PO PRN (11:54)
[2019-11-19] MEDS: predniSONE 20 MG TAB PO SCH ×2 (12:04→20:56)
--- NOTE | 2019-11-19 15:18 | EKG ---
Test Date: 2019-11-18 Test Time: 19:50:03 Tractor Mechanic Apprentice: MAYRA MEASUREMENT RESULTS: Intervals: Rate: 110 MD: 154 QRSD: 90 QT: 350 QTc: 473 [place]: P: 69 MD: 154 QRS: -10 T: 103 INTERPRETIVE STATEMENTS: Sinus tachycardia Possible Left atrial enlargement Low voltage QRS Septal infarct, age undetermined Abnormal ECG Compared to ECG 05/12/2017 07:12:32 Low QRS voltage now present Myocardial infarct finding now present Sinus rhythm no longer present Electronically Signed On 11-19-19 15:17:01 CDT by Manuel Collado
[2019-11-20 06:10] LABS: BUN Blood Urea Nitrogen 17 mg/dL (7-18); Bicarbonate 30 mmol/L (21-32); Glucose Level 180 mg/dL (74-106); Sodium Level 135 mmol/L (136-145)
[2019-11-20] MEDS: INSULIN -REGULAR HUMAN 50 UNIT/0.5 ML ML SQ SCH ×4 (07:30→20:50)
[2019-11-20] MEDS: ARFORMOTEROL TARTRATE 15 MCG/2 ML VIAL.NEB NEB SCH ×2 (08:00→20:10)
--- NOTE | 2019-11-20 08:30 | CON ---
Date of Consultation: 11/19/2019 Reason For Consultation: Chest pain, weakness, and shortness of breath. History Of Present Illness: Ms. Farnsworth is a 64-year-old woman. She has a history of lung cancer, m ediastinal mass, hypertension, diabetes, dyslipidemia, and depression. She came in with symptoms of weakness and shortness of breath. Her chest pain was more midepigastric, left lateral pleuritic type without any nausea, vomiting, diaphoresis, PND, orthopnea, pedal edema, palpitations, or syncope. S he denied fever or chills or cough. By the time I saw her, she was noted to have a troponin of 0.05 x2, not consistent with acute coronary syndrome. Allergies: TO IODINE, . Review of Systems: Negative. Social History: Negative. Family History: Noncontributory. Medications: At home include Zocor, methotrexate, metformin, lisinopril with hydrochlorothiazide, in sulin, and glimepiride. Physical Examination: Vital Signs: Stable. She was afebrile. HEENT: Negative. Neck: Supple without any bruit, lymphadenopathy, JVD, or thyromegaly. Chest: Clear to auscultation and percussion. Cardiac: Revealed a regular rhythm and rate. No murmurs, gallops, or rubs. Abdomen: Benign. Extremities: Revealed no clubbing, cyanosis, or edema. Diagnostic Data: Other than the troponin were unremarkable. Impression And Plan: Atypical chest pain, most likely secondary to her lung cancer, possible pleuris y. An echocardiogram was ordered, but could not be done at this time. Stress test was ordered and i t is pending. We will see what that shows before making final decisions. She does have multiple ris k factors for heart disease including hypertension, diabetes, and dyslipidemia. She is also allergic to iodine, so if her stress test is positive, we will have to address that issue now. If her stress test is negative as far as I am concerned, she can go home and follow up with as an o utpatient. YAKOV/BLANCHE Voice ID: [id number] Report ID: [id number]
[2019-11-20] MEDS: NICOTINE 21 MG/PAT TD SCH (08:38)
[2019-11-20] MEDS: METOPROLOL TAR 50 MG TAB PO SCH ×2 (08:38→20:49)
[2019-11-20] MEDS: ASPIRIN EC 81 MG TAB PO SCH (08:39)
[2019-11-20] MEDS: predniSONE 20 MG TAB PO SCH ×2 (08:39→20:49)
[2019-11-20] MEDS: HEPARIN 5000 UNIT/ML 1 ML VIAL SQ SCH ×2 (08:39→20:50)
--- NOTE | 2019-11-20 08:56 | P.PN ---
Subjective Date of Service: 11/20/19 Chief Complaint: Chest pain Patient denies any chest pain. She reports loss of appetite and decreased oral intake. She has no fever. Physical Examination - Vital Signs Temperature: 96.9 F Blood Pressure: 112/55 Pulse: 108 Respirations: 18 Pulse Ox (%): 95 - Physical Exam General: Alert, In no apparent distress Neck: Supple Respiratory: Clear to auscultation bilaterally, Normal air movement Cardiovascular: No edema, Regular rate/rhythm, Normal S1 S2 Gastrointestinal: Normal bowel sounds, Soft and benign, No tenderness Musculoskeletal: No swelling, No erythema Integumentary: No rashes Neurological: Other (Nonfocal) Assessment And Plan - Current Problems (Diagnosis) (1) Mediastinal mass Current Visit: Yes Status: Acute (2) Diabetes mellitus type 2 Current Visit: No Status: Active (3) Hypertensive disorder, systemic arterial Onset Date: 05/12/17 Current Visit: No Status: Active (4) Chest pain Onset Date: 05/12/17 Current Visit: No Status: Acute - Plan I suspect chest pain is pleuritic and likely secondary to mediastinal mass and pleural effusion. Troponin trended flat and low suspicion for ACS. Nuclear stress test was not available yesterday. It can be done as an outpatient. Patient seen by pulmonary-Dr. Gil and planned for bronchoscopy on friday. Hold aspirin in anticipation for bronchoscopy Continue empiric Levaquin. Insulin sliding scale for glucose management. Encourage oral intake.
[2019-11-20] MEDS: NA CHLORIDE 0.9% 1,000 ML IV SCH (12:14)
[2019-11-21] MEDS: INSULIN -REGULAR HUMAN 50 UNIT/0.5 ML ML SQ SCH ×4 (08:07→22:04)
[2019-11-21] MEDS: predniSONE 20 MG TAB PO SCH ×2 (08:08→21:58)
[2019-11-21] MEDS: METOPROLOL TAR 50 MG TAB PO SCH ×2 (08:08→21:58)
[2019-11-21] MEDS: HEPARIN 5000 UNIT/ML 1 ML VIAL SQ SCH (08:09)
[2019-11-21] MEDS: NICOTINE 21 MG/PAT TD SCH (08:13)
[2019-11-21] MEDS: NA CHLORIDE 0.9% 1,000 ML IV SCH (08:13)
[2019-11-21] MEDS: ARFORMOTEROL TARTRATE 15 MCG/2 ML VIAL.NEB NEB SCH ×2 (08:15→19:55)
--- NOTE | 2019-11-21 08:48 | P.PN ---
Subjective Date of Service: 11/21/19 Chief Complaint: Chest pain Patient denies any chest pain. She reports fatigue and reduced oral intake. Physical Examination - Vital Signs Temperature: 96.8 F Blood Pressure: 126/74 Pulse: 100 Respirations: 18 Pulse Ox (%): 97 - Physical Exam General: Alert, In no apparent distress HEENT: Mucous membr. moist/pink Respiratory: Clear to auscultation bilaterally, Normal air movement Cardiovascular: No edema, Regular rate/rhythm, Normal S1 S2 Gastrointestinal: Normal bowel sounds, Soft and benign, Non-distended Integumentary: No rashes Neurological: Other (Nonfocal) Assessment And Plan - Current Problems (Diagnosis) (1) Mediastinal mass Current Visit: Yes Status: Acute (2) Diabetes mellitus type 2 Current Visit: No Status: Active (3) Hypertensive disorder, systemic arterial Onset Date: 05/12/17 Current Visit: No Status: Active (4) Chest pain Onset Date: 05/12/17 Current Visit: No Status: Acute - Plan I suspect chest pain is pleuritic and likely secondary to mediastinal mass and pleural effusion. Troponin trended flat and low suspicion for ACS. Nuclear stress test was not available yesterday. Cardiology input appreciated. Stress test to be done tomorrow. Patient seen by pulmonary-Dr. Gil and planned for bronchoscopy also tomorrow. Hold aspirin in anticipation for bronchoscopy Continue empiric Levaquin. Insulin sliding scale for glucose management. Encourage oral intake.
[2019-11-22] MEDS: NA CHLORIDE 0.9% 1,000 ML IV SCH ×2 (01:00→04:33)
[2019-11-22] MEDS: INSULIN -REGULAR HUMAN 50 UNIT/0.5 ML ML SQ SCH ×3 (07:30→17:36)
[2019-11-22] MEDS: METOPROLOL TAR 50 MG TAB PO SCH (08:15)
[2019-11-22] MEDS: predniSONE 20 MG TAB PO SCH (08:15)
[2019-11-22] MEDS: NICOTINE 21 MG/PAT TD SCH (08:15)
[2019-11-22] MEDS: ARFORMOTEROL TARTRATE 15 MCG/2 ML VIAL.NEB NEB SCH (08:25)
[2019-11-22] MEDS ORDERED: Phenylephrine HCl 10 MG/ML 1 ML VIAL ONE (09:04)
[2019-11-22] MEDS: LIDOCAINE 4% TOP SOLUTION ONE ×2 (11:35→11:52)
[2019-11-22] MEDS ORDERED: propofoL 200 MG/20 ML VIAL IV ONE ×2 (12:03)
[2019-11-22] MEDS ORDERED: FENTANYL CITR 100 MCG/2 ML ONE (12:03)
[2019-11-22] MEDS ORDERED: LIDOCAINE 2% MPF 5 ML VIAL ONE (12:03)
[2019-11-22] MEDS ORDERED: LIDOCAINE VISCOUS 2% SOLN 15 ML UDC ONE (12:05)
[2019-11-22] MEDS ORDERED: LIDOCAINE 1% MPF 30 ML VIAL ONE (12:05)
[2019-11-22] MEDS ORDERED: ONDANSETRON 4 MG/2 ML VIAL ONE (12:33)
--- NOTE | 2019-11-22 13:23 | RAD REPORT ---
EXAM DESCRIPTION: RAD - FLUORO-GUIDE FOR BRONCH UPT1HR - 11/22/2019 1:17 pm FINDINGS: A single image from fluoroscopic assisted bronchoscopy was submitted. No suspicious or une xpected finding. Fluoro time was 3.3 minutes with a 34.9 mGy cumulative dose.
[2019-11-22 13:50] VITALS: O2SAT 99
[2019-11-22] MEDS ORDERED: METOPROLOL TAR 25 MG TAB PO ONE (14:07)
--- NOTE | 2019-11-22 14:12 | RAD REPORT ---
EXAM DESCRIPTION: RAD - Chest Single View - 11/22/2019 1:59 pm CLINICAL HISTORY: S/P BRONCHOSCOPY; R/O PNEUMO COMPARISON: November 17 TECHNIQUE: AP portable chest image was obtained 11/22/2019 1:59 pm . FINDINGS: Post bronchoscopy chest film shows no pneumothorax. Extensive pleural and parenchymal opac ification filled the lower half of the left chest. Patient has extensive overall interstitial opacifi cation. Cardiomegaly is present. IMPRESSION: No post bronchoscopy pneumothorax.
[2019-11-22] MEDS ORDERED: METHYLPREDNISOLONE 125 MG INJ IV ONE (14:36)
--- NOTE | 2019-11-22 14:56 | RAD REPORT ---
EXAM DESCRIPTION: CT - Head Brain Wo Cont - 11/22/2019 2:43 pm CLINICAL HISTORY: brain mets, history of iodinated contrast allergy COMPARISON: No comparisons TECHNIQUE: Axial 5 mm thick images of the head were obtained without IV contrast. All CT scans are performed using dose optimization technique as appropriate and may include automated exposure control or mA/KV adjustment according to patient size. FINDINGS: No intracranial hemorrhage, mass, edema or shift of mid-line structures. No acute infarcti on changes seen. No abnormal extra-axial fluid collections. Ventricles are normal. Atrophy and chroni c ischemic changes are mild. Mastoid air cells and visualized portions of the paranasal sinuses are clear. No acute bony findings. Available history indicates the patient declined premedication. No IV contrast was administered due t o allergy. IMPRESSION: Mild atrophy and chronic ischemic change. No evidence for metastatic disease or other ac picayune finding.
[2019-11-22 16:03] LABS: Absolute Lymphocytes (CBC) 0.5 K/uL (0.7-4.9); Basophils % 0.2 % (0-1.3); Lymphocytes % 3.7 % (15.3-44.8); MPV 7.6 fL (7.6-11.3); RBC Red Blood Cell Count 3.82 M/uL (3.86-4.86)
[2019-11-22 16:18] VITALS: BP 142/79; TEMP 97.6
--- NOTE | 2019-11-22 17:31 | RAD REPORT ---
EXAM DESCRIPTION: MRI - Brain W/Wo Cont - 11/22/2019 5:05 pm CLINICAL HISTORY: r/o cancer/mets, headache COMPARISON: Chest Single View dated 11/22/2019 TECHNIQUE: Sagittal and axial T1-weighted images were obtained. Axial PD/heavily T2-weighted and T2- FLAIR images were obtained along with axial DWI/ADC mapping sequences. Coronal heavily T2 weighted s equence obtained. Axial and coronal post-contrast T1-weighted images were also obtained. A 12 ml Mul tihance contrast following utilized. FINDINGS: No acute infarction changes are present. No hemorrhage, mass effect or edema. No midline s hift. No extra-axial fluid collections. Baseline atrophy and chronic ischemic changes are very minima l. Signal voids are seen as a normal finding in the major intracranial vessels. A 7 millimeter enhancing focus is present in the superior aspect of the left cerebellum near the tent orium. A 7 millimeter enhancing lesion is present in the anterior right thalamus near the genu of the internal capsule. A 5 mm enhancing lesion is present in the inferior right cerebral temporal occipit al junction. There are a few additional small punctate areas of enhancement in the cerebral hemispher es that are difficult to distinguish from small vessels. Mastoid air cells and paranasal sinuses are clear. No sella or supra sella abnormality. No globe or orbital content abnormality. IMPRESSION: Patient has at least 3 small 7 mm or less size enhancing lesions in the cerebral and cer ebellar hemispheres. Intracranial metastatic disease is the most likely etiology.
[2019-11-22 17:49] LABS: Blood Morphology Comment NOT SEEN (NOT SEEN); Platelet Estimate INCR; White Blood Cell Scan OK
--- NOTE | 2019-11-22 18:04 | P.DS ---
Discharge Date: 11/22/19 Disposition: ROUTINE DISCHARGE Discharge Condition: GOOD Reason for Admission: Chest pain Consultations: Pulmonary Brief History of Present Illness: 64-year-old woman with a history of hypertension, diabetes, former smoker, recently found to have the mediastinum mass 1 week ago presented emergency department with a complaint of chest pain of 1 week duration, which has gotten progressively worse. She rated her pain at 8/10 in maximum severity. Chest pain is worse with coughing and breathing. Patient also reports some dizziness and weakness. She denied any fever. She endorsed cough productive of brownish sputum. Her initial troponin is negative. EKG demonstrates sinus tachycardia. Chest x-ray demonstrated possible loculated left pleural effusion and mediastinal mass. Given her cardiac risk factors which include smoking, hypertension, diabetes she is placed under observation for ACS rule out. Hospital Course: Patient had bronchoscopy performed. This revealed small cell cancer. patient will continue with outpatient follow with pulmonary and also oncology. At this time, patient is stable for discharge with close outpatient followup with specialist as mentioned above. Vital Signs/Physical Exam: Temp Pulse Resp BP Pulse Ox 97.6 F 99 H 20 142/79 H 99 11/22/19 16:00 11/22/19 16:00 11/22/19 16:00 11/22/19 16:00 11/22/19 16:00 General: Alert, In no apparent distress, Oriented x3 Laboratory Data at Discharge: WBC 13.0 K/uL (4.3-10.9) H D 11/22/19 15:23 Hgb 11.7 g/dL (12.0-15.0) L 11/22/19 15:23 Hct 36.0 % (36.0-45.0) 11/22/19 15:23 Plt Count 414 K/uL (152-406) H D 11/22/19 15:23 PT 13.1 SECONDS (9.5-12.5) H 11/18/19 19:55 INR 1.11 11/18/19 19:55 Sodium 135 mmol/L (136-145) L 11/20/19 05:30 Potassium 4.0 mmol/L (3.5-5.1) 11/20/19 05:30 BUN 17 mg/dL (7-18) 11/20/19 05:30 Creatinine 0.65 mg/dL (0.55-1.3) 11/20/19 05:30 Glucose 180 mg/dL (74-106) H 11/20/19 05:30 Magnesium 1.5 mg/dL (1.8-2.4) L 11/18/19 19:55 Total Bilirubin 0.6 mg/dL (0.2-1.0) 11/18/19 19:55 AST 28 U/L (15-37) 11/18/19 19:55 ALT 17 U/L (12-78) 11/18/19 19:55 Alkaline Phosphatase 95 U/L (45-117) 11/18/19 19:55 Troponin I 0.05 ng/mL (0.0-0.045) H 11/19/19 05:45 Triglycerides 120 mg/dL (<150) 11/19/19 00:58 Cholesterol 99 mg/dL (<200) 11/19/19 00:58 HDL Cholesterol 38 mg/dL (40-60) L 11/19/19 00:58 Cholesterol/HDL Ratio 2.61 11/19/19 00:58 Home Medications: Glimepiride 4 mg PO BID 09/24/12 Lisinopril/Hydrochlorothiazide [Zestoretic 20-25 mg Tablet] 1 each PO DAILY 09/24/12 Metformin HCl [Glucophage*] 1,000 mg PO BID 09/24/12 Simvastatin [Zocor*] 40 mg PO BEDTIME 09/24/12 Cyclobenzaprine [Flexeril*] 10 mg PO BEDTIME 05/11/17 Insulin Glargine,Hum.rec.anlog [Basaglphill Farrellpen U-100] 20 unit SQ BID 05/11/17 Folic Acid 1 tab PO DAILY 11/19/19 Gabapentin [Neurontin*] 200 mg PO BEDTIME 11/19/19 Methotrexate [Methotrexate*] 8 cap PO SEECOM 11/19/19 Tramadol HCl [Ultram] 50 mg PO Q6HP PRN #40 tablet 11/22/19 New Medications: Tramadol HCl [Ultram] 50 mg PO Q6HP PRN #40 tablet PRN Reason: Pain Scale 5-7 (Moderate) Patient Discharge Instructions: OK TO DC IV AND DC HOME. FOLLOW-UP WITH PRIMARY CARE PROVIDER IN 1-2 WEEKS. FOLLOW-UP WITH PULMONARY IN 1-2 WEEKS. FOLLOW-UP WITH ONCOLOGY IN 1-2 WEEKS. RETURN TO THE ER IF symptoms worsen. CALL or TEXT DR. ROBERTSON AT [phone] IF ANY QUESTIONS REGARDING HOSPITAL STAY. PLEASE CALL THE FLOOR AT [phone] IF ANY MEDICATION OR NURSING QUESTIONS. Diet: ADA Activity: Fall precautions Followup: Cayden Gil MD [ACTIVE - CAN ADMIT] - 1-2 Weeks (reading intervention teacher- call to schedule an appointment ) Werner Rooney MD [Primary Care Provider] - 1-2 Weeks (PCP- call to schedule an appointment ) Time spent managing pt's care (in minutes): 30
--- NOTE | 2019-12-01 14:12 | P.OP ---
Date of Service: 11/22/19 (Bronchoscopy with endobronchial BX , BAL and wire brush) Findings and Operative Technique Pt is 64 yrs of age AW chest and foung lung mass ane mediastinal adenopathy After obtaining and informed consent from the aptient, premedicated by anesthesia. Finding- Normal vocal cords, carni,normal r side anatomey . Left side extensive tumor infiltration of LLL. Multiple specimes sent as above . Pt tolerated procedue well. MRI- multiple small mets. Stage 4 cancer
== END 2019-11-22 18:42 | disposition home or self-care (01) ==
LOC: ER 17:49 → ERHOLD 23:17 → 2ND 23:49
PROVIDERS: ADMIT Internal Medicine; ATTEND Hospitalist
PROC: 0BBB8ZX Excision of Left Lower Lobe Bronchus, Via Natural or Artificial Opening Endoscopic, Diagnostic (ICD-10-PCS; principal; 2019-11-22 12:00)
DX: C34.92 Malignant neoplasm of unspecified part of left bronchus or lung (principal); J90 Pleural effusion, not elsewhere classified; E11.9 Type 2 diabetes mellitus without complications; I11.9 Hypertensive heart disease without heart failure; R07.89 Other chest pain; G93.89 Other specified disorders of brain; R06.02 Shortness of breath; Z20.828 Contact with and (suspected) exposure to other viral communicable diseases; E87.6 Hypokalemia; R00.0 Tachycardia, unspecified; R94.31 Abnormal electrocardiogram [ECG] [EKG]; E78.00 Pure hypercholesterolemia, unspecified; E78.5 Hyperlipidemia, unspecified; F32.9 Major depressive disorder, single episode, unspecified; G25.81 Restless legs syndrome; Z79.4 Long term (current) use of insulin; Z79.899 Other long term (current) drug therapy; Z91.041 Radiographic dye allergy status; Z87.891 Personal history of nicotine dependence
CPT/HCPCS: 93005; 85025 ×3; 80048 ×3; 36415 ×3; 88108 ×2; 83735; 84132; 85610; 80061; 82947 ×16; 80076; 88305 ×2; 84484 ×3; 87015; 87206; 83880; 87116; 87102; 70450; 71045 ×2; 76000; 70553; 94640 ×5; 94760 ×7; 99285; 31625; U0002; A9577; J2704; J2370; J1644 ×6; J3480; J3010; J7605 ×5; G0378 ×6; J7050; J7030 ×3; J2405 ×2; J2930; J7512

== ENCOUNTER 2019-12-06 18:50 | Inpatient (IN) | payer BC ==
--- NOTE | 2019-12-06 20:31 | RAD REPORT ---
EXAM DESCRIPTION: Enrique Single View12/06/2019 8:02 pm CLINICAL HISTORY: Shortness breath COMPARISON: CT chest on today's date FINDINGS: No significant change in the left lung opacities, mediastinal and hilar lymphadenopathy a nd left pleural effusion The right lung appears clear of acute infiltrate. Heart is normal size
[2019-12-06] MEDS ORDERED: ONDANSETRON 4 MG/2 ML VIAL ONE (20:38)
--- NOTE | 2019-12-06 20:47 | EDPHYS ---
Physician Documentation [facility] Name: Helga Farnsworth Age: 64 yrs Sex: Female : 1955 Arrival Date: 12/06/2019 Time: 18:56 Bed 6 Private MD: ED Physician Jorge Mckenzie HPI: 12/05 23:46 This 64 yrs old Female presents to ER via EMS with complaints of Breathing tw4 Difficulty. 23:46 The patient has shortness of breath at rest. Onset: The symptoms/episode began/occurred tw4 today. Duration: The symptoms are continuous, and are unchanged since they started. The patient's shortness of breath has no apparent modifying factors. Associated signs and symptoms: The patient has no apparent associated signs or symptoms. Severity of symptoms: At their worst the symptoms were moderate in the emergency department the symptoms are unchanged. The patient has not experienced similar symptoms in the past. Historical: - Allergies: 19:13 HYDROCODONE; ph 19:13 Iodine; IV contrast; ph - Home Meds: 19:13 metformin 1,000 mg Oral tab 1 tab 2 times per day for Type 2 Diabetes Mellitus ph [Active]; Folic Acid Oral [Active]; Dexamethasone Oral [Active]; gabapentin oral oral [Active]; cyclobenzaprine Oral [Active]; Tramadol Oral [Active]; - PMHx: 19:13 Depression; Diabetes - NIDDM; Hyperlipidemia; Hypertension; mediastinal mass; Cancer, ph Lung; - PSHx: 19:13 Hernia repair; Hysterectomy; Cholecystectomy; ph - Immunization history:: Adult Immunizations unknown. - Social history:: Smoking status: Patient reports the use of cigarette tobacco products, smokes two packs cigarettes per day. ROS: 23:46 Constitutional: Negative for fever, chills, and weight loss, Eyes: Negative for injury, tw4 pain, redness, and discharge, Cardiovascular: Negative for chest pain, palpitations, and edema, Abdomen/GI: Negative for abdominal pain, nausea, vomiting, diarrhea, and constipation, Back: Negative for injury and pain, MS/Extremity: Negative for injury and deformity, Skin: Negative for injury, rash, and discoloration, Neuro: Negative for headache, weakness, numbness, tingling, and seizure. 23:46 Respiratory: Positive for cough, shortness of breath, Negative for dyspnea on exertion, hemoptysis, orthopnea, pleurisy. Exam: 23:46 Constitutional: This is a well developed, well nourished patient who is awake, alert, tw4 and in no acute distress. Head/Face: Normocephalic, atraumatic. Chest/axilla: Normal chest wall appearance and motion. Nontender with no deformity. No lesions are appreciated. Cardiovascular: Regular rate and rhythm with a normal S1 and S2. No gallops, murmurs, or rubs. Normal PMI, no JVD. No pulse deficits. Abdomen/GI: Soft, non-tender, with normal bowel sounds. No distension or tympany. No guarding or rebound. No evidence of tenderness throughout. Back: No spinal tenderness. No costovertebral tenderness. Full range of motion. Skin: Warm, dry with normal turgor. Normal color with no rashes, no lesions, and no evidence of cellulitis. MS/ Extremity: Pulses equal, no cyanosis. Neurovascular intact. Full, normal range of motion. Neuro: Awake and alert, GCS 15, oriented to person, place, time, and situation. Cranial nerves II-XII grossly intact. Motor strength 5/5 in all extremities. Sensory grossly intact. Cerebellar exam normal. Normal gait. 23:46 Respiratory: the patient does not display signs of respiratory distress, Respirations: normal, Breath sounds: decreased breath sounds, that are moderate, are heard in the left posterior lower lobe. Vital Signs: 18:58 BP 99 / 63; Pulse 118; Resp 32; Temp 97.2; Pulse Ox 94% on R/A; Weight 54.43 kg; Height ph 5 ft. 6 in. (167.64 cm); 19:15 BP 108 / 63; Pulse 117; Resp 25; Pulse Ox 100% on 2 lpm NC; lp1 19:45 BP 111 / 65; Pulse 119; Resp 24; Pulse Ox 99% on 2 lpm NC; lp1 20:30 BP 99 / 67; Pulse 122; Resp 20; Pulse Ox 98% on 2 lpm NC; lp1 21:15 BP 102 / 65; Pulse 118; Resp 26; Pulse Ox 97% on 2 lpm NC; lp1 22:45 Temp 97.9(O); lp1 23:45 BP 100 / 69; Pulse 114; Resp 24; Pulse Ox 99% on 2 lpm NC; lp1 18:58 Body Mass Index 19.37 (54.43 kg, 167.64 cm) ph MDM: 19:14 Patient medically screened. tw4 23:48 Antibiotic administration: cefepime, zithromax. Data reviewed: vital signs, nurses tw4 notes. Data reviewed: lab test result(s), cardiac enzymes, CBC, electrolytes, hepatic panel, radiologic studies, plain films. Data interpreted: Pulse oximetry: Plan: O2 by NC applied. Test interpretation: by ED physician or midlevel provider: ECG, plain radiologic studies. Counseling: I had a detailed discussion with the patient and/or guardian regarding: the historical points, exam findings, and any diagnostic results supporting the discharge/admit diagnosis, lab results, radiology results, the need for further work-up and treatment in the hospital. Physician consultation: Patrick TRINIDAD regarding admission, to the telemetry unit. and will see patient in inpatient room. 12/05 19:17 Order name: Blood Culture Adult (2) tw 12/05 19:17 Order name: BMP tw 12/05 19:17 Order name: CBC with Diff tw4 12/05 19:17 Order name: Ckmb tw 12/05 19:17 Order name: CPK tw 12/05 19:17 Order name: D-Dimer tw 12/05 19:17 Order name: Hepatic Function tw4 12/05 19:17 Order name: Lipase tw 12/05 19:17 Order name: Magnesium tw 12/05 19:17 Order name: NT PRO-BNP tw 12/05 19:17 Order name: PT-INR tw 12/05 19:17 Order name: Ptt, Activated tw 12/05 19:17 Order name: Troponin (emerg Dept Use Only) tw 12/05 20:06 Order name: Lactate 1 12/05 19:17 Order name: XRAY CXR (1 view) tw 12/05 21:43 Order name: CT Chest Wo Con tw4 12/05 22:51 Order name: Manual Differential EDND 12/05 23:30 Order name: Urinalysis EDND 12/05 23:30 Order name: Basic Metabolic Panel EDND 12/05 23:30 Order name: Basic Metabolic Panel EDND 12/05 23:30 Order name: CBC with Automated Diff EDMS 12/05 23:30 Order name: CBC with Automated Diff EDMS 12/05 23:30 Order name: Magnesium EDMS 12/05 23:30 Order name: Magnesium EDMS 12/05 23:41 Order name: SARS-COV-2 RT PCR EDMS 12/05 19:17 Order name: EKG; Complete Time: 19:18 tw4 12/05 19:17 Order name: Cardiac monitoring; Complete Time: 19:43 tw4 12/05 19:17 Order name: EKG - Nurse/Tech; Complete Time: 20:06 tw4 12/05 19:17 Order name: IV Saline Lock; Complete Time: 20:06 tw4 12/05 19:17 Order name: Labs collected and sent; Complete Time: 20:06 tw4 12/05 19:17 Order name: O2 Per Protocol; Complete Time: 19:43 tw4 12/05 19:17 Order name: O2 Sat Monitoring; Complete Time: 19:43 tw4 12/05 23:29 Order name: Consistent Carb (ADA) 1800 [address] EDMS EC/25 06:41 Rate is 121 beats/min. Rhythm is regular. QRS [place] is Normal. QRS interval is normal. tw4 QT interval is normal. No Q waves. T waves are Inverted in leads I, aVL. No ST changes noted. Clinical impression: Sinus tachycardia. Interpreted by me. Reviewed by me. Administered Medications: 12/05 20:38 Drug: Zofran (Ondansetron) 4 mg Route: IVP; Site: left antecubital; mt2 21:30 Follow up: Response: No adverse reaction lp1 21:17 Drug: Cefepime 1 grams Route: IVPB; Rate: 200 ml/hr; Infused Over: 30 mins; Site: left lp1 antecubital; 22:45 Follow up: IV Status: Completed infusion lp1 22:45 Drug: AZITHromycin 500 mg Route: IVPB; Infused Over: 1 hrs; Site: right upper arm; lp1 23:53 Follow up: IV Status: Completed infusion lp1 23:54 Drug: Lovenox 1 mg/kg Route: Sub-Q; Site: right lower abdomen; lp1 12/06 00:19 Follow up: Response: No adverse reaction lp1 12/05 23:54 Drug: Phenergan 12.5 mg Route: IVP; Site: right upper arm; lp1 12/06 00:18 Follow up: Response: No adverse reaction lp1 Disposition: 12/06/19 20:46 Hospitalization ordered by Marcos Koo for Inpatient Admission. Preliminary diagnosis are Pneumonia, unspecified organism, Tachycardia, unspecified, Hypoxemia. - Bed requested for Telemetry/MedSurg (Inpatient). - Status is Inpatient Admission. lp1 - Condition is Stable. - Problem is new. - Symptoms have improved. Signatures: Dispatcher [employer] EDND Heather Dejesus RN RN lp1 Helga Gomez RN RN Yvette Garcia RN RN Jorge Mckenzie MD MD tw4 Patricia Ryan RN RN mt2 Corrections: (The following items were deleted from the chart) 12/05 19:39 19:18 Chest For PE Angio+CT.RAD.BRZ ordered. [facility] [place] EDND 21:48 20:46 Hospitalization Ordered by Patrick TRINIDAD for Inpatient Admission. tw4 Preliminary diagnosis is Pneumonia, unspecified organism; Tachycardia, unspecified; Hypoxemia. Bed requested for Telemetry/MedSurg (Inpatient). Status is Inpatient Admission. Condition is Stable. Problem is new. Symptoms have improved. tw4 22:41 22:10 CORONAVIRUS+MR.LAB.BRZ ordered. [facility] [place] EDMS 23:46 21:48 12/06/2019 20:46 Hospitalization Ordered by Marcos Koo MD for Inpatient Admission. Preliminary diagnosis is Pneumonia, unspecified organism; Tachycardia, unspecified; Hypoxemia. Bed requested for Telemetry/MedSurg (Inpatient). Status is Inpatient Admission. Condition is Stable. Problem is new. Symptoms have improved. tw4 12/06 00:19 12/05 23:46 12/06/2019 20:46 Hospitalization Ordered by Marcos Koo MD for Inpatient lp1 Admission. Preliminary diagnosis is Pneumonia, unspecified organism; Tachycardia, unspecified; Hypoxemia. Bed requested for Telemetry/MedSurg (Inpatient). Status is Inpatient Admission. Condition is Stable. Problem is new. Symptoms have improved.
--- NOTE | 2019-12-06 20:47 | ER ---
Nurse's Notes [facility] Name: Helga Farnsworth Age: 64 yrs Sex: Female : 1955 Arrival Date: 12/06/2019 Time: 18:56 Bed 6 Private MD: Diagnosis: Pneumonia, unspecified organism;Tachycardia, unspecified;Hypoxemia Presentation: 12/05 18:58 Chief complaint: EMS states: Pt's daughter called EMS for difficulty breathing, upon arrival HR 220-250, respiratory rate 32, 15 mg Cardizem administered, HR down to 120, BP initially 60/40, last BP 120/80, 300 mL NS given, pt reports chest pain and palpitations when HR was elevated, denies pain at this time, recently dx w/ Stage 4 lung cancer and daughter reports that she has been taken off of all of her BP and heart meds, pt denies hx of irregular HR. Coronavirus screen: Client denies travel out of the [place] in the last 14 days. At this time, the client does not indicate any symptoms associated with coronavirus-19. Ebola Screen: No symptoms or risks identified at this time. Initial Sepsis Screen: Does the patient meet any 2 criteria?. Risk Assessment: Do you want to hurt yourself or someone else? Patient reports no desire to harm self or others. Onset of symptoms was December 06, 2019. 18:58 Method Of Arrival: EMS: [facility] 18:58 Acuity: AARON 2 ph 21:21 Initial Sepsis Screen: Does the patient have a suspected source of infection? Yes: lp1 Productive cough/pneumonia. Triage Assessment: 19:30 Respiratory: Reports shortness of breath Onset: The symptoms/episode began/occurred lp1 gradually, the patient has moderate shortness of breath. Historical: - Allergies: 19:13 HYDROCODONE; ph 19:13 Iodine; IV contrast; ph - Home Meds: 19:13 metformin 1,000 mg Oral tab 1 tab 2 times per day for Type 2 Diabetes Mellitus ph [Active]; Folic Acid Oral [Active]; Dexamethasone Oral [Active]; gabapentin oral oral [Active]; cyclobenzaprine Oral [Active]; Tramadol Oral [Active]; - PMHx: 19:13 Depression; Diabetes - NIDDM; Hyperlipidemia; Hypertension; mediastinal mass; Cancer, ph Lung; - PSHx: 19:13 Hernia repair; Hysterectomy; Cholecystectomy; ph - Immunization history:: Adult Immunizations unknown. - Social history:: Smoking status: Patient reports the use of cigarette tobacco products, smokes two packs cigarettes per day. Screenin:14 Abuse screen: Denies threats or abuse. Denies injuries from another. Nutritional ph screening: No deficits noted. Tuberculosis screening: No symptoms or risk factors identified. Fall Risk None identified. Assessment: 20:08 General: Appears in no apparent distress. ill, Behavior is appropriate for age. Pain: lp1 Denies pain. Neuro: Level of Consciousness is awake, alert, obeys commands, Oriented to person, place, situation. Cardiovascular: Capillary refill < 3 seconds in bilateral fingers Rhythm is sinus tachycardia. Respiratory: Airway is patent Respiratory effort is labored, Respiratory pattern is tachypnea Breath sounds are diminished bilaterally. GI: No signs and/or symptoms were reported involving the gastrointestinal system. : No signs and/or symptoms were reported regarding the genitourinary system. EENT: No signs and/or symptoms were reported regarding the EENT system. Derm: Skin is thin, Skin is dry, Skin is pale. Musculoskeletal: No deficits noted. 21:00 Reassessment: Patient appears in no apparent distress at this time. Patient readjusted lp1 for comfort in bed; Aware of pending admission. 22:03 Reassessment: Reassessment: Patient appears in no apparent distress at this time. lp1 Patient sitting up for comfort on breathing. 23:45 Reassessment: Patient complaint of nausea; Provider notified. lp1 Vital Signs: 18:58 BP 99 / 63; Pulse 118; Resp 32; Temp 97.2; Pulse Ox 94% on R/A; Weight 54.43 kg; Height ph 5 ft. 6 in. (167.64 cm); 19:15 BP 108 / 63; Pulse 117; Resp 25; Pulse Ox 100% on 2 lpm NC; lp1 19:45 BP 111 / 65; Pulse 119; Resp 24; Pulse Ox 99% on 2 lpm NC; lp1 20:30 BP 99 / 67; Pulse 122; Resp 20; Pulse Ox 98% on 2 lpm NC; lp1 21:15 BP 102 / 65; Pulse 118; Resp 26; Pulse Ox 97% on 2 lpm NC; lp1 22:45 Temp 97.9(O); lp1 23:45 BP 100 / 69; Pulse 114; Resp 24; Pulse Ox 99% on 2 lpm NC; lp1 18:58 Body Mass Index 19.37 (54.43 kg, 167.64 cm) ph ED Course: 18:56 Patient arrived in ED. ph 19:01 Mason Meza PA is PHCP. [facility] 19:01 Juwan Gray MD is Attending Physician. [facility] 19:09 Triage completed. ph 19:14 Jorge Mckenzie MD is Attending Physician. tw4 19:14 Arm band placed on Patient placed in an exam room, on a stretcher, on oxygen, on ph supervisor toy assembly, on pulse oximetry. 19:30 Patient has correct armband on for positive identification. Placed in gown. Bed in low lp1 position. Call light in reach. Side rails up X2. management instructor on. Pulse ox on. NIBP on. 19:43 Heather Dejesus RN is Primary Nurse. lp1 20:00 Maintain EMS IV. Dressing intact. Good blood return noted. Site clean \T\ dry. Gauge \T\ lp 1 site: 20g to L AC. 20:02 XRAY CXR (1 view) In Process Unspecified. EDMS 20:45 Patrick Malone PA is Hospitalizing Provider. tw4 21:21 No provider procedures requiring assistance completed. Patient admitted, IV remains in lp1 place. 21:30 20g IV to L AC from EMS infiltrated at this time; IV DC'd. lp1 21:48 Hospitalizing Provider role handed off by Patrick Malone PA tw4 21:48 Marcos Koo MD is Hospitalizing Provider. tw4 22:11 CT Chest Wo Con In Process Unspecified. EDMS 22:30 Inserted 18 gauge 10 cm midline to right upper arm basilic vein on first attempt. Line fc with good blood return and flushes well. 22:30 COVID swab at this time. lp1 Administered Medications: 20:38 Drug: Zofran (Ondansetron) 4 mg Route: IVP; Site: left antecubital; mt2 21:30 Follow up: Response: No adverse reaction lp1 21:17 Drug: Cefepime 1 grams Route: IVPB; Rate: 200 ml/hr; Infused Over: 30 mins; Site: left lp1 antecubital; 22:45 Follow up: IV Status: Completed infusion lp1 22:45 Drug: AZITHromycin 500 mg Route: IVPB; Infused Over: 1 hrs; Site: right upper arm; lp1 23:53 Follow up: IV Status: Completed infusion lp1 23:54 Drug: Lovenox 1 mg/kg Route: Sub-Q; Site: right lower abdomen; lp1 12/06 00:19 Follow up: Response: No adverse reaction lp1 12/05 23:54 Drug: Phenergan 12.5 mg Route: IVP; Site: right upper arm; lp1 12/06 00:18 Follow up: Response: No adverse reaction lp1 Outcome: 12/05 20:46 Decision to Hospitalize by Provider. tw4 22:35 Condition: stable lp1 22:35 Instructed on the need for admit. 12/06 00:09 Admitted to Tele via stretcher, room 428, with oxygen, with chart, Report called to tri Alaniz RN 00:19 Patient left the ED. 1 Signatures: Dispatcher [employer] EDMS Mason Meza PA PA jmm Chretien, Felicia RN RN Heather Roy RN RN 1 Helga Gomez RN RN ph Wadley, Terrence, MD MD tw4 Patricia Ryan RN RN mt2 Corrections: (The following items were deleted from the chart) 12/05 23:55 22:03 Reassessment: 1 1
[2019-12-06] MEDS ORDERED: AZITHROMYCIN 500 MG INJ IVPB ONE (21:16)
[2019-12-06] MEDS ORDERED: NA CHLORIDE 0.9% 250 ML ONE (21:16)
[2019-12-06 22:45] LABS: Absolute Lymphocytes (CBC) 0.7 K/uL (0.7-4.9); Basophils % 0.3 % (0-1.3); Hematocrit 40.4 % (36.0-45.0); Lymphocytes % 4.8 % (15.3-44.8); MPV 7.5 fL (7.6-11.3); RBC Red Blood Cell Count 4.31 M/uL (3.86-4.86)
[2019-12-06 22:48] LABS: Protime INR 1.04
[2019-12-06 22:57] LABS: ALT/SGPT 19 U/L (12-78); AST/SGOT 32 U/L (15-37); Albumin 2.7 g/dL (3.4-5.0); Alkaline Phosphatase 108 U/L (45-117); BUN Blood Urea Nitrogen 26 mg/dL (7-18); Bicarbonate 31 mmol/L (21-32); Bilirubin Direct 0.2 mg/dL (0-0.2); Bilirubin Total 0.5 mg/dL (0.2-1.0); CKMB Creatine Kinase MB 4.8 ng/mL (0.3-3.6); Creatine Phosphokinase 63 U/L (26-192); Glucose Level 169 mg/dL (74-106); Lipase 52 U/L (73-393); Magnesium 1.5 mg/dL (1.8-2.4); NT PRO-BNP 1263 pg/mL (<125); Potassium 4.8 mmol/L (3.5-5.1); Protein, Total 6.4 g/dL (6.4-8.2); Sodium Level 137 mmol/L (136-145); Troponin (Emerg Dept Use Only) 0.02 ng/mL (0.0-0.045)
--- NOTE | 2019-12-06 23:36 | P.HP ---
Certification for Inpatient Patient admitted to: Observation With expected LOS: <2 Midnights Patient will require the following post-hospital care: None Practitioner: I am a practitioner with admitting privileges, knowledge of patient current condition, hospital course, and medical plan of care. Services: Services provided to patient in accordance with Admission requirements found in Title 42 Section 412.3 of the Code of Federal Regulations <Patrick Malone - Last Filed: 12/06/19 23:30> Patient History Date of Service: 12/06/19 Reason for admission: Pleural effusion/hypoxia History of Present Illness: 64-year-old female with a past medical history of diabetes, hypertension, depression and low stage IV lung cancer presents to the emergency room with complaints of worsening difficulty breathing. Patient states that for the past month she has had increasing difficulty breathing. Feels like she cannot catch her breath. Daughter called EMS. On arrival, patient's heart rate was 2 20- 250, respiratory rate of 32 an initial blood pressure of 60/40. By the time patient presented to the emergency room her blood pressure had improved to 120/80, was given some gentle IV fluids in route and 15 mg of Cardizem. Patient was recently diagnosed with stage IV lung cancer. She was scheduled for a PET scan in the next day or 2. In the emergency room chest x-ray shows no significant change in the left lung opacity, mediastinal and hilar lymphadenopathy and left pleural effusion. CT scan of the chest pending. Lab work fairly unremarkable. Her last set of vitals shows a blood pressure of 99/63, pulse rate of 118, respiratory rate of 32, temperature 97.2 and a pulse oximeter of 94% on room air. She has lost a lot a weight in the recent few months. She is alert and oriented and in no distress. Has a mild labored breathing. Patient will be placed in observation and further evaluated. Patient wants to be DNR. Home medications list reviewed: No - Past Medical/Surgical History Diabetic: Yes -: DM -: HTN -: Hypercholesterolemia -: Depression -: Restless Leg syndrome -: Gall bladder removed -: Hysterectomy -: Hernia -: Hemoroids removed -: Catarct Surgery -: appendectomy Psychosocial/ Personal History: Lives at home - Family History Father -: Lung disease, Cancer Notes: colon ca Mother -: Heart disease, Diabetes, Cancer Notes: uterine - Social History Smoking Status: Former smoker Alcohol use: No CD- Drugs: No Caffeine use: Yes Place of Residence: Home <aPtrick Malone - Last Filed: 12/06/19 23:30> Date of Service: 12/09/19 <KooMarcos - Last Filed: 12/09/19 20:38> Allergies iodine Allergy (Mild, Verified 05/11/17 21:52) Itching/Hives/Rash hydrocodone Allergy (Verified 12/07/19 01:12) Unknown Home Medications: Cyclobenzaprine [Flexeril*] 1 tab PO BEDTIME 12/08/19 Ergocalciferol (Vitamin D2) [Vitamin D2] 1 tab PO SEECOM 12/08/19 Folic Acid 1 tab PO DAILY 12/08/19 Gabapentin 2 tab PO BEDTIME 12/08/19 Metformin HCl 500 mg PO BID 12/08/19 Tramadol HCl [Ultram] 1 tab PO BID PRN 12/08/19 dexAMETHasone [Dexamethasone] 2 mg PO TID 12/08/19 Review of Systems General: As per HPI Eyes: Unremarkable ENT: Unremarkable Respiratory: Shortness of Breath, SOB with Excertion Cardiovascular: Unremarkable Gastrointestinal: Unremarkable Genitourinary: Unremarkable Musculoskeletal: Unremarkable Integumentary: Unremarkable Neurological: Unremarkable Lymphatics: Unremarkable <Patrick Malone - Last Filed: 12/06/19 23:30> Physical Examination - Vital Signs Temperature: 97.2 F Blood Pressure: 99/63 Pulse: 118 Respirations: 32 Pulse Ox (%): 94 (RA) - Physical Exam General: Alert, In no apparent distress, Oriented x3 HEENT: Atraumatic, Normocephalic, PERRLA Neck: Supple, Other (Trachea midline) Respiratory: Diminished, Other (Mildly labored breathing) Cardiovascular: No edema, Normal pulses Capillary refill: <2 Seconds Gastrointestinal: Normal bowel sounds, Soft and benign, Non-distended Musculoskeletal: No swelling, No contractures, No erythema Integumentary: No breakdown, No significant lesion, No tenderness/swelling Neurological: Normal gait, Normal speech, Normal strength at 5/5 x4 extr, Normal tone - Studies Laboratory Data (last 24 hrs) 12/06/19 22:24: PT 12.3, INR 1.04, APTT 26.6 12/06/19 22:24: WBC 14.1 H, Hgb 13.1, Hct 40.4, Plt Count 436 H 12/06/19 22:24: Sodium 137, Potassium 4.8, BUN 26 H, Creatinine 0.65, Glucose 169 H, Magnesium 1.5 L, Total Bilirubin 0.5, AST 32, ALT 19, Alkaline Phosphatase 108, Lipase 52 L <Patrick Malone - Last Filed: 12/06/19 23:30> Assessment and Plan - Plan Impression: Large left lung pleural effusion complicated by recent diagnosis of stage IV lung cancer: Type 2 diabetes mellitus: Severe malnutrition: Plan: Large left lung pleural effusion complicated by recent diagnosis of stage IV lung cancer: Patient was recently diagnosed with stage IV lung cancer. She is followed outpatient by her oncologist. Patient was scheduled for PET scan. Patient is requesting thoracentesis to help with fluid buildup in the left lower lung. She be placed on telemetry. Patient is DNR. Type 2 diabetes mellitus: Accu-Cheks a.c. HS. Diabetic diet. Will place on sliding scale insulin. Severe malnutrition: Significant weight loss in the last few months likely secondary to recent diagnosis of stage IV lung cancer. Discharge Plan: Home Plan to discharge in: 48 Hours - Advance Directives Does patient have a Living Will: No Does patient have a Durable POA for Healthcare: No - Code Status/Comfort Care Code Status Assessed: Yes Code Status: Do Not Attempt Resuscitat Time Spent Managing Pts Care (In Minutes): 55 <Patrick Malone - Last Filed: 12/06/19 23:30> Physician Review Additional Text: I reviewed the plan of care for this patient on 12/06/19 by Patrick Malone, and I agree with the management as noted above. <Marcos Koo - Last Filed: 12/09/19 20:38>
[2019-12-06 23:45] LABS: Blood Morphology Comment NOT SEEN (NOT SEEN); Platelet Estimate INCR
[2019-12-06] MEDS ORDERED: ENOXAPARIN 60 MG/0.6 ML SQ ONE (23:49)
[2019-12-06] MEDS ORDERED: PROMETHAZINE INJ 25 MG/ML AMP ONE (23:57)
[2019-12-07 01:03] VITALS: BMI 19.5
[2019-12-07] MEDS ORDERED: Magnesium Sulfate 2gm IVPB 2 G/50 ML BAG IV ONE (01:03)
[2019-12-07] MEDS ORDERED: CEFTRIAXONE/SWI 1gm 1 GM/10 ML SYR IV SCH (06:00)
[2019-12-07] MEDS ORDERED: CEFTRIAXONE 1 GM/NS 50 ML 1 GM/50 ML BAG IV SCH (06:00)
[2019-12-07 06:38] LABS: Absolute Lymphocytes (CBC) 0.7 K/uL (0.7-4.9); Basophils % 0.6 % (0-1.3); Hematocrit 38.2 % (36.0-45.0); Lymphocytes % 4.8 % (15.3-44.8); MPV 7.7 fL (7.6-11.3); RBC Red Blood Cell Count 4.05 M/uL (3.86-4.86)
[2019-12-07 07:03] LABS: Magnesium 2.2 mg/dL (1.8-2.4); Potassium 4.3 mmol/L (3.5-5.1)
[2019-12-07] MEDS: INSULIN -REGULAR HUMAN 50 UNIT/0.5 ML ML SQ SCH ×4 (07:30→20:18)
[2019-12-07] MEDS ORDERED: ONDANSETRON 4 MG/2 ML VIAL IV ONE (07:36)
[2019-12-07 08:31] LABS: Platelet Estimate INCR; Urine White Blood Cell Casts OK
[2019-12-07 08:32] LABS: Blood Morphology Comment NOT SEEN (NOT SEEN)
[2019-12-07] MEDS ORDERED: ENOXAPARIN 40 MG/0.4 ML SQ SCH (09:00)
--- NOTE | 2019-12-07 10:22 | RAD REPORT ---
EXAM DESCRIPTION: CT - Thorax Wo Con - 12/07/2019 2:09 am CLINICAL HISTORY: 64 years Female, pneumonia TECHNIQUE: 5 mm axial images of the thorax are obtained along with 2 mm reformatting coronal and sag ittal images. This exam was performed according to our departmental dose-optimization program, which includes autom ated exposure control, adjustment of the mA and/or kV according to patient size and/or use of iterati ve reconstruction technique. COMPARISON: 11/11/2019. INTRAVENOUS CONTRAST: None. FINDINGS: Lung huerta: There is moderately severe paraseptal and centrilobular emphysematous lung disease. There is a moderate severe diffuse pulmonary infiltrates in the left upper lobe. There is severe compressive atelectasis of the left lower lobe. There is a spiculated mass in the left upper lobe posteriorly measuring 2.1 x 1.5 cm, stable. There is a spiculated mass in the right upper lobe measuring 1.0 x 1.5 cm, stable. Mediastinal structures: There is a large mediastinal mass which extends from the anterior mediastinum into the middle mediast inum in the subcarinal space. This measures 13.1 x 10.6 cm in maximal AP and transverse dimensions. This is stable. There are enlarged anterior mediastinal lymph nodes consistent with adenopathy. These increase in size from prior study. Largest node measures 2.0 x 1.4 cm. There is severe atherosclerotic disease about the thoracic aorta and its branch vessels. There is a small pericardial effusion. Pleural space: There is a large left pleural effusion, stable. There is a moderate-sized right pleural effusion which is new from prior study. No active pleural disease. Upper abdomen: There is evidence of diffuse hepatic metastatic disease. Axillae: No adenopathy. Bony structures: No suspicious lesions. IMPRESSION: 1. Large mediastinal mass, stable. 2. Mediastinal adenopathy which is increased in severity. 3. Moderately severe diffuse pulmonary infiltrates in the left upper lobe. 4. Severe compressive atelectasis of the left lower lobe. 5. Spiculated mass lesions in the upper lobes bilaterally. Electronically signed by: Adam Hale MD 12/06/2019 10:33 PM CDT Due to temporary technical issues with the PACS/Fluency reporting system, reports are being signed by the in house radiologist without review as a courtesy to ensure prompt reporting. The interpreting r adiologist is fully responsible for the content of the report.
--- NOTE | 2019-12-07 10:44 | EKG ---
Test Date: 2019-12-06 Test Time: 20:01:45 Chapter Relations Administrator: MAYRA MEASUREMENT RESULTS: Intervals: Rate: 121 WA: 132 QRSD: 76 QT: 322 QTc: 457 Sterling: P: 55 WA: 132 QRS: 2 T: 150 INTERPRETIVE STATEMENTS: Sinus tachycardia Low voltage QRS Septal infarct, age undetermined T wave abnormality, consider lateral ischemia Abnormal ECG Compared to ECG 11/18/2019 19:50:03 T-wave abnormality now present Possible ischemia now present Myocardial infarct finding still present Electronically Signed On 12-07-19 10:43:21 CDT by Manuel Collado
[2019-12-07 12:02] LABS: Protein, Total 6.5 g/dL (6.4-8.2)
[2019-12-07] MEDS: ARFORMOTEROL TARTRATE 15 MCG/2 ML VIAL.NEB NEB SCH ×2 (12:54→20:00)
[2019-12-07] MEDS ORDERED: OXYCODONE *CR* 20 MG TAB PO SCH (12:58)
[2019-12-07] MEDS ORDERED: ESZOPICLONE 1 MG TAB PO PRN (12:59)
--- NOTE | 2019-12-07 13:01 | P.CNS ---
Date of Consult: 12/07/19 Reason for Consult: For lung cancer shortness of breath Chief Complaint: Pleural effusion/hypoxia History of Present Illness: Patient is 64 years of age recently diagnosed with stage IV lung cancer the pleural metastasis see bronchoscopy shows [id number] or the Oncology required more tissue presented with worsening dyspnea orthopnea this found to have a significant effusion patient has a history of COPD Allergies iodine Allergy (Mild, Verified 05/11/17 21:52) Itching/Hives/Rash hydrocodone Allergy (Verified 12/07/19 01:12) Unknown - Past Medical/Surgical History Diabetic: Yes -: DM -: HTN -: Hypercholesterolemia -: Depression -: Restless Leg syndrome -: Lung Cancer Stage 4 -: Darshana -: Hysterectomy -: Hernia -: Hemoroids removed -: Catarct Surgery -: appendectomy Psychosocial/ Personal History: Lives at home - Family History Father Medical History: Lung disease, Cancer Notes: colon ca, mesothelioma Mother Medical History: Heart disease, Hypertension, Diabetes, Cancer Notes: uterine, Alzheimers - Social History Smoking Status: Current every day smoker Alcohol use: No CD- Drugs: No Caffeine use: Yes Place of Residence: Home Review of Systems General: Weakness, Other (Weight loss) Respiratory: Cough, Shortness of Breath Cardiovascular: Chest Pain Physical Examination Temp Pulse Resp BP Pulse Ox 97.3 F 110 H 20 99/57 L 98 12/07/19 12:00 12/07/19 12:00 12/07/19 12:00 12/07/19 12:00 12/07/19 12:00 General: Alert, Oriented x3, Moderate distress Respiratory: Diminished (Diminished on the left side) Cardiovascular: No edema, Normal S1 S2 Gastrointestinal: Normal bowel sounds, Soft and benign Musculoskeletal: No clubbing, No contractures Laboratory Data (last 24 hrs) 12/06/19 22:24: PT 12.3, INR 1.04, APTT 26.6 12/06/19 22:24: WBC 14.1 H, Hgb 13.1, Hct 40.4, Plt Count 436 H 12/06/19 22:24: Sodium 137, Potassium 4.8, BUN 26 H, Creatinine 0.65, Glucose 169 H, Magnesium 1.5 L, Total Bilirubin 0.5, AST 32, ALT 19, Alkaline Phosphatase 108, Lipase 52 L - Problems (1) Lung cancer Current Visit: No Status: Acute Plan: Patient is 64 years of age she is terminally ill from 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
[2019-12-07] MEDS: IPRATROPIUM BROM 0.5MG/2.5ML NEB SCH ×2 (14:01→19:50)
[2019-12-07] MEDS: TRAMADOL HCL 50 MG TAB PO PRN (14:23)
[2019-12-07] MEDS ORDERED: METHYLPREDNISOLONE 40 MG INJ IV SCH (17:00)
[2019-12-07] MEDS ORDERED: NA CHLORIDE 0.9% 500 ML ONE (17:06)
[2019-12-07 17:20] LABS: Absolute Lymphocytes (CBC) 1.6 K/uL (0.7-4.9); Basophils % 0.4 % (0-1.3); Lymphocytes % 9.6 % (15.3-44.8); MPV 7.8 fL (7.6-11.3); RBC Red Blood Cell Count 4.28 M/uL (3.86-4.86)
[2019-12-07 17:42] LABS: Magnesium 1.9 mg/dL (1.8-2.4); Phosphorus 3.4 mg/dL (2.5-4.9); Potassium 4.1 mmol/L (3.5-5.1)
--- NOTE | 2019-12-07 18:35 | RAD REPORT ---
EXAM DESCRIPTION: RAD - Chest Single View - 12/07/2019 6:10 pm CLINICAL HISTORY: SVT COMPARISON: CT chest December 05, portable chest December 05 TECHNIQUE: AP portable chest image was obtained 12/07/2019 6:10 pm . FINDINGS: Interstitial thickening has increased slightly in the right lung field. This is partly due to a more shallow inspiratory effort. Large left pleural effusion is a known finding and is not roddy rly different. Minimal right pleural effusion is evident as well. Enlarged mediastinum is noted. This is a known finding. Interstitial markings appear slightly increased in the upper left lung field is well. Most of the left lung base is obscured by the large pleural effusion. Heart size is not clearly different from comparison. Vasculature is prominent but not clearly different. No pneumothorax. IMPRESSION: Vascular engorgement and interstitial opacification are present. This is increased from comparison no inspiratory effort may account for this change. A component of failure or volume overload cannot be excluded. Large left pleural effusion enlarged mediastinal mass or known findings.
--- NOTE | 2019-12-07 18:51 | P.PN ---
Subjective Date of Service: 12/07/19 Chief Complaint: Pleural effusion/hypoxia seen this morning, reported feeling slightly better compared to when she first showed up to ED Review of Systems General: Weakness, Malaise Eyes: Unremarkable ENT: Unremarkable Respiratory: Cough, Shortness of Breath, Sputum Cardiovascular: Unremarkable Gastrointestinal: Nausea Musculoskeletal: Unremarkable Integumentary: Unremarkable Physical Examination - Vital Signs Temperature: 97.6 F Blood Pressure: 110/76 Pulse: 111 Respirations: 20 Pulse Ox (%): 100 - Physical Exam General: Alert HEENT: Mucous membr. moist/pink, Sclerae nonicteric Neck: Supple, JVD not distended Respiratory: Other (absent breath sounds in LLL) Cardiovascular: No edema, Normal S1 S2, Irregular heart rate/rhythm (sinus tachycardia) Gastrointestinal: Normal bowel sounds Musculoskeletal: No tenderness Integumentary: No rashes, No breakdown Neurological: Normal speech, Normal affect - Studies Laboratory Data (last 24 hrs) 12/06/19 22:24: PT 12.3, INR 1.04, APTT 26.6 12/06/19 22:24: WBC 14.1 H, Hgb 13.1, Hct 40.4, Plt Count 436 H 12/06/19 22:24: Sodium 137, Potassium 4.8, BUN 26 H, Creatinine 0.65, Glucose 169 H, Magnesium 1.5 L, Total Bilirubin 0.5, AST 32, ALT 19, Alkaline Phosphatase 108, Lipase 52 L Microbiology Data (last 24 hrs): 12/06/19 20:03 Blood - Blood Anaerobic Blood Culture - Final 12/06/19 20:09 Blood - Blood Anaerobic Blood Culture - Final Assessment & Plan Physician Review Additional Text: Large left lung pleural effusion complicated by recent diagnosis of stage IV lung cancer: Type 2 diabetes mellitus: Severe malnutrition: Large left lung pleural effusion complicated by Stage IV lung cancer -Pulm consulted, for bronchoscopy today -Oxygen as needed -discussed with IR, pt would benefit from pleurocath, effusion likely malignant T2DM -accucheks, SSI Severe malnutrition -significant weight loss over past few weeks/months, likely in setting of stage IV cancer Afternoon addendum -called to bedside, pt noted to be in SVT to 220s, feeling very short of breath and weak. Narrow complex, monomorphic -vagal maneuvers did not help, Adenosine was given x3 (6mg, 12mg, 12mg), unfortunately she remained in SVT -Amiodarone 150mg bolus was given, followed by drip. Patient's heart rate decreased to ~120-130s, appeared sinus tachycardia on monitor -BMP fairly unremarkable -she was transferred to ICU for further monitoring, cardiology will be consulted in AM Time Spent Managing Pts Care (In Minutes): 35
[2019-12-07] MEDS ORDERED: AMIODARONE HCL 900 MG in Dextrose 5%-Water 482 ML IV SCH (19:00)
[2019-12-07] MEDS ORDERED: IPRATROPIUM BROM 0.5MG/2.5ML ONE (19:53)
[2019-12-07] MEDS: METHYLPREDNISOLONE 40 MG INJ IV SCH (20:18)
[2019-12-07] MEDS: MORPHINE 2 MG/ML SYR IV PRN (20:20)
[2019-12-07] MEDS: ONDANSETRON 4 MG/2 ML VIAL IV PRN (20:20)
[2019-12-07] MEDS ORDERED: METHYLPREDNISOLONE 40 MG INJ ONE (20:27)
[2019-12-07] MEDS ORDERED: MORPHINE 2 MG/ML SYR ONE (20:27)
[2019-12-07] MEDS ORDERED: INSULIN -REGULAR HUMAN 50 UNIT/0.5 ML ML ONE (20:28)
[2019-12-07] MEDS ORDERED: AZITHROMYCIN IV 500 MG in NA CHLORIDE 0.9% 250 ML IVPB SCH (21:00)
[2019-12-08] MEDS: IPRATROPIUM BROM 0.5MG/2.5ML NEB SCH ×2 (01:50→08:00)
[2019-12-08] MEDS ORDERED: IPRATROPIUM BROM 0.5MG/2.5ML ONE ×2 (01:58→07:53)
[2019-12-08] MEDS: MORPHINE 2 MG/ML SYR IV PRN ×3 (03:37→22:26)
[2019-12-08] MEDS: ONDANSETRON 4 MG/2 ML VIAL IV PRN ×4 (03:38→21:53)
[2019-12-08] MEDS ORDERED: MORPHINE 2 MG/ML SYR ONE ×4 (03:47→22:36)
[2019-12-08] MEDS ORDERED: ONDANSETRON 4 MG/2 ML VIAL ONE ×4 (03:47→22:03)
[2019-12-08 04:43] LABS: Hematocrit 37.9 % (36.0-45.0); MPV 7.7 fL (7.6-11.3); RBC Red Blood Cell Count 4.01 M/uL (3.86-4.86)
[2019-12-08 04:58] LABS: Potassium 4.2 mmol/L (3.5-5.1)
[2019-12-08] MEDS ORDERED: LIDOCAINE 1% MPF 5 ML VIAL ONE (05:52)
[2019-12-08] MEDS: INSULIN -REGULAR HUMAN 50 UNIT/0.5 ML ML SQ SCH ×4 (07:20→20:42)
[2019-12-08] MEDS: ARFORMOTEROL TARTRATE 15 MCG/2 ML VIAL.NEB NEB SCH ×2 (08:00→20:00)
[2019-12-08] MEDS ORDERED: METHYLPREDNISOLONE 40 MG INJ ONE ×2 (08:06→20:51)
[2019-12-08] MEDS: METHYLPREDNISOLONE 40 MG INJ IV SCH ×2 (08:45→20:41)
--- NOTE | 2019-12-08 10:56 | RAD REPORT ---
EXAM DESCRIPTION: RAD - Chest Single View - 12/08/2019 10:29 am CLINICAL HISTORY: chest tube placement COMPARISON: December 06 TECHNIQUE: AP portable chest image was obtained 12/08/2019 10:29 am . FINDINGS: Since the prior study chest tube has been placed. Tube enters approximately seventh inner costal space. Tip is in the medial left base. Heart size is unchanged. Mediastinum and heart remain s hifted to the right. Small apical and left upper chest pneumothorax is present approximately 10-15%. No acute bony abnormality seen. No acute aortic findings suspected. Findings telephoned to the referring physician 10:52 a.m.. IMPRESSION: Approximately 10-15% pneumothorax in the left apex and lateral upper left chest followin g placement of a chest tube. Chest tube enters seventh intercostal space. Tip is in the medial left base.
[2019-12-08] MEDS ORDERED: HYDROCODONE/APAP 5/325 MG TAB PO PRN (11:50)
[2019-12-08] MEDS ORDERED: IPRATROPIUM BROM 0.5MG/2.5ML NEB PRN (11:52)
--- NOTE | 2019-12-08 11:53 | P.PN ---
Subjective Date of Service: 12/10/19 Chief Complaint: Pleural effusion/hypoxia Subjective: Improving Patient is doing much better status post left-sided PleurX catheter with pain has also reduced Review of Systems General: Weakness Respiratory: Shortness of Breath Cardiovascular: Chest Pain Physical Examination - Vital Signs Temperature: 97.8 F Blood Pressure: 130/97 Pulse: 98 Respirations: 21 Pulse Ox (%): 99 - Physical Exam General: Alert, Oriented x3, Mild distress Respiratory: Diminished (On the left side) Cardiovascular: No edema, Regular rate/rhythm - Studies Microbiology Data (last 24 hrs): 12/06/19 20:09 Blood - Blood Anaerobic Blood Culture - Final 12/06/19 20:03 Blood - Blood Anaerobic Blood Culture - Final Assessment & Plan - Problems (Diagnosis) (1) Lung cancer Current Visit: No Status: Acute Plan: Patient has stage IV lung cancer status post left-sided PleurX catheter as been placed patient has been feeling much better scheduled for a liver biopsy on Friday S patient's pain has improved trach issues Vicodin p.r.n. labs reviewed patient is in normal sinus rhythm Dc amiodarone no evidence of AFib transfer to the floor Qualifiers: Laterality: left
--- NOTE | 2019-12-08 11:56 | P.OP ---
Consolidator: NONE,NONE Preoperative diagnosis: LEFT Malignant Pleural Effusion Postoperative diagnosis: LEFT Malignant Pleural Effusion Primary procedure: Placement of LEFT Thoracic Pleur-X catheter Anesthesia: Local 1% lidocaine Estimated blood loss: <1cc Specimen: Pleural Fluid sent Findings: straw colored fluid noted Complications: None Drain(s): Other (Pleur X catheter) Transferred to: ICU Condition: Fair
[2019-12-08 12:30] LABS: Body Fluid Source PLEURAL
[2019-12-08 12:31] LABS: Appearance CLEAR (CLEAR); Body Fluid WBC 332 /mm^3; Color of fluid Yellow (COLORLESS)
--- NOTE | 2019-12-08 14:37 | ECHO ---
HEIGHT: 5 ft 7 in WEIGHT: 124 lb 12.8 oz DATE OF STUDY: 12/08/[address]: Cayden Gil MD 2-DIMENSIONAL: YES M.MODE: YES DOPPLER: YES COLOR FLOW: YES TDS: YES PORTABLE: DEFINITY: BUBBLE STUDY: DIAGNOSIS: LUNG CANCER, POSSIBLE PERICARDIAL EFFUSION CARDIAC HISTORY: CATHERIZATION: NO SURGERY: NO PROSTHETIC VALVE: NO PACEMAKER: NO MEASUREMENTS (cm) DIASTOLIC (NORMALS) SYSTOLIC (NORMALS) IVSd (0.6-1.2) LA Diam (1.9-4.0) LVEF % LVIDd (3.5-5.7) LVIDs (2.0-3.5) %FS % LVPWd (0.6-1.2) Ao Diam (2.0-3.7) 2 DIMENSIONAL ASSESSMENT: RIGHT ATRIUM: NORMAL LEFT ATRIUM: NORMAL RIGHT VENTRICLE: NORMAL LEFT VENTRICLE: NORMAL TRICUSPID VALVE: NORMAL MITRAL VALVE: NORMAL PULMONIC VALVE: NORMAL AORTIC VALVE: NORMAL PERICARDIAL EFFUSION: NONE AORTIC ROOT: NORMAL LEFT VENTRICULAR WALL MOTION: NORMAL DOPPLER/COLOR FLOW: NORMAL COMMENTS: TECHNICALLY DIFFICULT STUDY. POSITIVE PLEURAL EFFUSION BILATERAL. NO PERICARDIAL EFFUSION. TECHNOLOGIST: RADHA BLANC
--- NOTE | 2019-12-08 15:19 | RAD REPORT ---
EXAM DESCRIPTION: RADChest Single View12/08/2019 3:07 pm CLINICAL HISTORY: Pneumothorax COMPARISON: December 07 FINDINGS: Left pneumothorax has decreased size and is small. Left chest tube in place. Left pleural effusion has decreased in size No other change
[2019-12-08] MEDS ORDERED: ADENOSINE 6 MG/ 2ML VIAL IV ONE (15:29)
[2019-12-08] MEDS ORDERED: AMIODARONE HCL 150 MG/3 ML INJ IV ONE (15:29)
--- NOTE | 2019-12-08 15:58 | P.PN ---
Subjective Date of Service: 12/08/19 Chief Complaint: Pleural effusion/hypoxia had a few short runs of SVT overnight but came back down without intervention "doing ok" this morning, reports occasionally feeling like she is "drowning" Physical Examination - Vital Signs Temperature: 98.2 F Blood Pressure: 118/72 Pulse: 99 Respirations: 16 Pulse Ox (%): 94 - Physical Exam General: Mild distress HEENT: Mucous membr. moist/pink Neck: JVD not distended Respiratory: Diminished, Other (no breath sounds at left lower lobe) Cardiovascular: No edema, Normal S1 S2 (tachycardic: 90-100) Gastrointestinal: Soft and benign, Non-distended, No tenderness Musculoskeletal: No erythema, No tenderness Integumentary: No rashes Neurological: Normal speech, Normal affect - Studies Microbiology Data (last 24 hrs): 12/06/19 20:09 Blood - Blood Anaerobic Blood Culture - Final 12/06/19 20:03 Blood - Blood Anaerobic Blood Culture - Final Assessment & Plan Physician Review Additional Text: Large left lung pleural effusion complicated by recent diagnosis of stage IV lung cancer: Type 2 diabetes mellitus: Severe malnutrition: Large left lung pleural effusion complicated by Stage IV lung cancer -Pulm consulted, s/p bronchoscopy yesterday, pleurocath today, should alleviate patient's feeling of drowning -likely causing cardiac stress and contributing /cause of SVT -Oxygen as needed SVT -as noted yesterday, still on amiodarone drip this morning, appears sinus tachycardic (90-100) now -likely due to pleural effusion in addition to patient's baseline sinus tachycardia -may not need medication after pleurocath placed vs beta-zackary for some rate control -cardiology consulted for assistance T2DM -accucheks, SSI Severe malnutrition -significant weight loss over past few weeks/months, likely in setting of stage IV cancer Time Spent Managing Pts Care (In Minutes): 40
[2019-12-08 18:05] LABS: Urine Appearance TURBID; Urine Blood NEGATIVE (NEG); Urine Color DK YELLOW; Urine Glucose NEGATIVE (NEG); Urine Protein TRACE (NEG); Urine Specific Gravity 1.025 (1.005-1.030); Urine Urobilinogen 0.2 mg/dL (0.2-1.0)
[2019-12-08 18:09] LABS: Urine Bilirubin 1+ (NEG); Urine Microscopic Reflex ORDER UMIC
[2019-12-08 18:26] LABS: Urine Amorphous Sediment 3+ /HPF (NONE SEEN); Urine Bacteria <20 /HPF (<20); Urine Culture Reflex Order NOT NEEDED; Urine Mucus 2+ /HPF (NONE SEEN); Urine RBC <5 /HPF (NONE SEEN)
--- NOTE | 2019-12-08 19:27 | CON ---
Date of Consultation: 12/08/2019 Brief History Of Present Illness: The patient is a 64-year-old female with past medical hi story of diabetes, hypertension, depression, and stage IV lung cancer who presents to the emergency r oom with complaints of worsening shortness of breath and difficulty breathing. She has had worsening shortness of breath over the course of the past month approximately. Her daughter called EMS when s he felt as if she could not catch her breath. The patient was tachypneic on initial evaluation. She was given medication. She had an episode of SVT and was placed on amiodarone drip in the ICU. She was originally scheduled to get a PET scan after recent diagnosis of a stage IV lung cancer and a pos itive smoking history. I spoke with Dr. Cayden Arriaga who requested placement of a PleurX long-term left thoracic catheter for long-term management of this patient's malignant pleural effusion for sym ptomatic relief and improvement. Past Medical History: Significant for diabetes, hypertension, hypercholesterolemia, depression, rest less legs syndrome. Past Surgical History: Includes cholecystectomy, hysterectomy, hernia repair, hemorrhoid removed, ca taract surgery, appendectomy. Allergies: TO IODINE AND HYDROCODONE. Home Medications: Include glimepiride, lisinopril, metformin, simvastatin, Flexeril, insulin, folic acid, Neurontin, methotrexate, tramadol. Family History: Significant for father and mother both had cancer. Father had colon cancer and moth er had uterine cancer. She has a positive significant smoking history. Denies alcohol or recreation al drug use. Review of Systems: Ten-point review of systems other than HPI; she has shortness of breath with exertion and weight loss . General malaise and fatigue as well. Physical Examination: Vital Signs: At the time of my examination, her blood pressure was 117/64, pulse is 100, respiratory rate 23, temperature 98.2. General: She is awake, alert, oriented. Psychiatric: She is appropriate conversive. HEENT: She is normocephalic. Her sclerae were anicteric. Her mucous membranes are moist. Orophary nx is clear. Neck: Supple without JVD. Chest: She had decreased breath sounds significantly on the left. It was dull to percussion. Abdomen: Soft. Extremities: No clubbing, cyanosis, or edema. Skin: Warm and dry. Laboratory Data: Otherwise, she had a laboratory exam, which was performed on 12/07 which officially shows a white blood cell count of 12.5, hemoglobin of 1 2.3, hematocrit 37.9, platelet count is 428. Her sodium is 135, potassium 4.2, chloride 101, carbon dioxide 26, BUN 29, creatinine 0.69. The glucose is 205. Lactic acid was 2.5 on admission. She had imaging performed, which included a chest CT on 12/05, which was officially read as a large mediasti nal mass, stable mediastinal adenopathy, which is increased in severity, moderate to severe diffuse p ulmonary infiltrates in the left upper lobe, a severe compressive atelectasis of the left lower lobe, spiculated mass, lesions of the upper lobes bilaterally. There is a large left pleural effusion, wh ich is stable. Moderate right-sided pleural effusion, which is new from prior study. No active pleu ral disease. Assessment And Plan: This is a 64-year-old female who has a malignant pleural effusion on the left. 1.Continue medical management. 2.I have explained the risks, benefits, and alternatives of placement of PleurX left thoracic cathet er including but not limited to bleeding, infection, pneumothorax, need for further operations and pr ocedures, infection, blood clots, need for more surgery or procedures. The patient agrees to proceed as indicated. Thank you for this interesting consult. EVA/BLANCHE Voice ID: [id number] Report ID: [id number]
[2019-12-08] MEDS: JUVEN PACKET PO SCH (20:42)
[2019-12-08] MEDS: GLUCERNA SHAKE 237 ML CAN PO SCH (20:42)
--- NOTE | 2019-12-08 22:06 | OP ---
Date of Procedure: 12/08/2019 Surgeon: Wesley Foley MD, Propellant Assembler: None. Preoperative Diagnosis: Left malignant pleural effusion. Postoperative Diagnosis: Left malignant pleural effusion. Procedure Performed: Placement of a left thoracic PleurX catheter. Anesthesia: Local 1% lidocaine used. Estimated Blood Loss: Less than 1 mL. Specimen: Pleural fluid sent. Findings: Straw-colored fluid noted. Complications: None. Drains: The PleurX catheter was left in the left thoracic space. The patient remained in ICU in geovanna r condition. Procedure In Detail: After informed consent was obtained, the patient was prepped and draped in the usual sterile fashion. After adequate anesthesia was achieved, I examined the area of the left chest and placed a marking on the left thoracic cavity along approximately the sixth intercostal space on the mid axillary line. I then anesthetized the area along the seventh intercostal space. After appr opriately anesthetizing the tract, I made an incision in the skin and a counter incision inferiorly. I entered the thoracic space with a finder needle and immediately encountered straw-colored fluid. The wire was advanced at this point and the introducer sheath was removed. I then tunneled the Pleur X catheter approximately 4 cm away from the insertion site, inferior and anterior to the insertion si te and placed the cuff in the midportion of the space between the two. I then sequentially dilated u p the tract at the insertion site using Seldinger technique with sequential dilatation. Introducer s daryl was placed and a wire out was called at this point. The PleurX catheter was then placed in the thoracic space aiming somewhat cranially and posteriorly and straw-colored fluid was encountered at this point. The patient had a few coughs and suctioned some air during the process, but it was minim al at this point. I then removed the introducer sheath and cleansed the area and closed the insertio n site with an interrupted 3-0 silk suture and secured the chest with the same 3-0 silk suture. Ster ile dressing was placed over top and the device was hooked up to the Pneumovax canister. Straw-color ed fluid was sent for analysis at this point, and the patient did well at this point. The patient to lerated the procedure well without evidence of complication. The patient remained in the ICU in fair condition throughout the entire procedure. A stat chest x-ray will be performed. Continue the Pleu rX catheter drainage at this point. All counts were correct at the end of the case. EVA/BLANCHE Voice ID: [id number] Report ID: [id number]
--- NOTE | 2019-12-09 02:52 | CON ---
Date of Consultation: 12/08/[address] Koo's service on 12/06/2019. I saw the patient on 12/08/2019. Reason For Consultation: Supraventricular tachycardia. History Of Present Illness: Ms. Farnsworth is a 64-year-old unfortunate woman, who has just been diagno sed with stage IV lung cancer, therapy have not started yet, but she will be going to the [facility] er here locally. She also has a history of diabetes, hypertension, dyslipidemia, and depression. Tee d a negative stress test in 2018. While she has been in the hospital, evaluated for her lung cancer and pleural effusion. She went into SVT, unresponsive to Adenocard. She is now on IV amiodarone. S he converted. Her pleural effusion was treated with a chest tube by Dr. Foley. She has a small pn eumothorax, but is feeling much better right now and is asymptomatic in sinus rhythm. When she had a trial fib with the SVT, she was very symptomatic with palpitations and shortness of breath. Echocard iogram, which was done, revealed no pericardial effusion and a normal ejection fraction. Past Medical History: As stated above. Allergies: SHE IS ALLERGIC TO IODINE AND . Medications: Include amiodarone IV, inhalers, steroids, antibiotics. Review of Systems: Negative. Social History: Positive for tobacco. Family History: Negative. Physical Examination: General: She is in sinus rhythm. Blood pressure is 117/64. She weighs 124 pounds. HEENT: Negative. Neck: Supple with no bruit. Chest: Revealed a chest tube presence on the left side. Decreased breath sounds bilaterally. Cardiac: Revealed a regular rhythm and rate without any murmurs, gallops, or rubs. Abdomen: Benign. Extremities: Revealed no clubbing, cyanosis, or edema. Diagnostic Data: Chest x-ray showed effusion. Echocardiogram was normal without pericardial effusio n. White count is 12,000. D-dimer is 2281. BNP is 1263. Impression And Plan: Supraventricular tachycardia secondary to hypoxia, lung cancer, pleural effusio n. She is on IV amiodarone right now. This would not exactly be my choice for p.o. considering her lung status. I would like to keep her on amiodarone for 24 hours and maybe switch her to a beta-bloc ker tomorrow. I think having the effusion resolve with the chest tube would help prevent the suprave ntricular tachycardia. Her echocardiogram is normal. We need to make sure her potassium and magnesi um stay adequate. Her other issues include diabetes, hypertension, dyslipidemia, and depression. Th shelbie are stable. She is on inhalers, steroids, and antibiotics. She will hopefully start chemotherap y soon. She has had a negative stress test in 2018. I do not plan to repeat any further cardiac wor kup on her. As stated earlier, continue amiodarone for 24 hours IV, switch to beta-blockers and see how she does. I will continue to follow her. YAKOV/BLANCHE Voice ID: [id number] Report ID: [id number]
[2019-12-09] MEDS: MORPHINE 2 MG/ML SYR IV PRN (04:30)
[2019-12-09] MEDS: ONDANSETRON 4 MG/2 ML VIAL IV PRN (04:30)
[2019-12-09] MEDS ORDERED: MORPHINE 2 MG/ML SYR ONE (04:38)
[2019-12-09] MEDS ORDERED: ONDANSETRON 4 MG/2 ML VIAL ONE ×2 (04:39→21:01)
[2019-12-09 04:40] LABS: Hematocrit 42.2 % (36.0-45.0); MPV 8.1 fL (7.6-11.3)
[2019-12-09 04:55] LABS: Potassium 4.5 mmol/L (3.5-5.1)
[2019-12-09] MEDS: JUVEN PACKET PO SCH ×2 (07:22→20:46)
[2019-12-09] MEDS: GLUCERNA SHAKE 237 ML CAN PO SCH ×2 (07:22→20:46)
--- NOTE | 2019-12-09 07:39 | RAD REPORT ---
[facility] CLINICAL HISTORY: Pleural effusion COMPARISON: December 07 FINDINGS: Left pleural effusion appears mildly increased in size. It has relatively small Small left pleural effusion No change in the bilateral pulmonary opacities. Mediastinal mass is again demonstrated
[2019-12-09] MEDS: INSULIN -REGULAR HUMAN 50 UNIT/0.5 ML ML SQ SCH ×4 (07:42→21:00)
[2019-12-09] MEDS: METHYLPREDNISOLONE 40 MG INJ IV SCH ×2 (07:43→20:47)
[2019-12-09] MEDS ORDERED: METHYLPREDNISOLONE 40 MG INJ ONE ×2 (07:50→19:57)
[2019-12-09] MEDS ORDERED: INSULIN -REGULAR HUMAN 50 UNIT/0.5 ML ML ONE ×3 (07:50→17:03)
[2019-12-09] MEDS: ARFORMOTEROL TARTRATE 15 MCG/2 ML VIAL.NEB NEB SCH ×2 (07:55→21:14)
[2019-12-09] MEDS ORDERED: IPRATROPIUM BROM 0.5MG/2.5ML ONE (07:57)
--- NOTE | 2019-12-09 08:02 | P.PN ---
Subjective Date of Service: 12/09/19 Chief Complaint: Pleural effusion/hypoxia s/p pleurocath yesterday, feeling significant better. Still uncomfortable in bed - constantly re-positioning her self. Reports some mild fatigue/generalized weakness Breathing more comfortably, no chest pain, no abdominal pain, urinating without issue, has not had BM here, +flatus Review of Systems 10-point ROS is otherwise unremarkable Physical Examination - Vital Signs Temperature: 96.9 F Blood Pressure: 112/64 Pulse: 97 Respirations: 18 Pulse Ox (%): 98 - Physical Exam General: Alert, In no apparent distress Respiratory: Diminished, Crackles/rales (left lower lung huerta (improved)) Cardiovascular: No edema, Regular rate/rhythm (occasionally in 90s-105), Normal S1 S2 Gastrointestinal: Normal bowel sounds, Soft and benign, Non-distended, No tenderness Musculoskeletal: No erythema, No tenderness Integumentary: No rashes, No breakdown Neurological: Normal affect Assessment & Plan Physician Review Additional Text: Large left lung pleural effusion complicated by recent diagnosis of stage IV l celia cancer: Type 2 diabetes mellitus: Severe malnutrition: Large left lung pleural effusion complicated by Stage IV lung cancer -Pulm consulted, s/p bronch, s/p pleurocath 12/07, feeling much improved -likely caused cardiac stress and contributed to development of SVT -continue home pain meds (tramadol, gabapentin) -Oxygen as needed SVT -remained on amio drip overnight -likely due to pleural effusion in addition to patient's baseline sinus tachycardia -cardiology consulted - recommend switching to beta-zackary PO today T2DM -accucheks, SSI Severe malnutrition -significant weight loss over past few weeks/months, likely in setting of stage IV cancer Time Spent Managing Pts Care (In Minutes): 35
[2019-12-09] MEDS: FOLIC ACID 1 MG TABLET PO SCH (08:10)
[2019-12-09] MEDS: PIPER/TAZO/NS 3.375gm 3.375 GM/100 ML BAG IVPB SCH ×2 (09:06→16:19)
--- NOTE | 2019-12-09 09:43 | PN ---
Date of Progress Note: 12/09/2019 Subjective: Ms. Farnsworth was diagnosed with stage 4 lung cancer with bilateral pleural effusion, stat us post chest tube placement by Dr. Foley. She had an episode of supraventricular tachycardia that responded only to IV amiodarone. Today, she is in normal sinus rhythm. She has adequate O2 saturat ions. Her potassium is 4.5. Her white count is 22.1. Chest tube is still in place. Dr. Foley is following the patient. Regarding having her supraventricular tachycardia, I am hoping this will res olve since her total fluid had been drained. I suggest that we take her off the IV amiodarone, put h er on p.o. metoprolol 50 b.i.d., and we will see how she does with that. YAKOV/MODL Voice ID: [id number] Report ID: [id number]
[2019-12-09] MEDS: TRAMADOL HCL 50 MG TAB PO PRN (09:44)
[2019-12-09] MEDS ORDERED: TRAMADOL HCL 50 MG TAB ONE (09:54)
[2019-12-09] MEDS ORDERED: METOPROLOL TAR 50 MG TAB ONE (16:33)
[2019-12-09] MEDS ORDERED: METOPROLOL TAR 25 MG TAB ONE (16:39)
[2019-12-09] MEDS: METOPROLOL TAR 25 MG TAB PO SCH (16:59)
[2019-12-09] MEDS ORDERED: CYCLOBENZAPRINE 10 MG TAB ONE (19:56)
[2019-12-09] MEDS ORDERED: GABAPENTIN 300 MG CAP PO SCH (21:00)
[2019-12-09] MEDS ORDERED: CYCLOBENZAPRINE 10 MG TAB PO SCH (21:00)
[2019-12-09] MEDS ORDERED: GABAPENTIN 300 MG CAP ONE (21:01)
[2019-12-09] MEDS ORDERED: ARFORMOTEROL TARTRATE 15 MCG/2 ML VIAL.NEB ONE (21:23)
[2019-12-10] MEDS: PIPER/TAZO/NS 3.375gm 3.375 GM/100 ML BAG IVPB SCH ×2 (00:15→08:48)
[2019-12-10] MEDS: ONDANSETRON 4 MG/2 ML VIAL IV PRN (01:59)
[2019-12-10] MEDS: MORPHINE 2 MG/ML SYR IV PRN (01:59)
[2019-12-10] MEDS ORDERED: MORPHINE 2 MG/ML SYR ONE (02:09)
[2019-12-10 04:54] LABS: Hematocrit 40.9 % (36.0-45.0); MPV 7.8 fL (7.6-11.3); RBC Red Blood Cell Count 4.32 M/uL (3.86-4.86)
[2019-12-10 05:04] LABS: Potassium 4.9 mmol/L (3.5-5.1)
[2019-12-10] MEDS: METOPROLOL TAR 25 MG TAB PO SCH (05:26)
--- NOTE | 2019-12-10 07:21 | RAD REPORT ---
EXAM DESCRIPTION: RAD - Chest Single View - 12/10/2019 6:53 am CLINICAL HISTORY: Malignant pleural effusion COMPARISON: December 08 TECHNIQUE: AP portable chest image was obtained 12/10/2019 6:53 am . FINDINGS: Minimal left apical pneumothorax is present. This is not substantially different the kip rison. Chest tube remains in place. Mediastinal mass again noted. Lung volumes are low. Patchy bilateral opacification, worse on the left similar to comparison. Heart size is normal and stable. IMPRESSION: Minimal left apical pneumothorax similar to comparison. No change in position of the nia st tube. Bilateral lung parenchymal opacification not substantially different from comparison.
[2019-12-10] MEDS: INSULIN -REGULAR HUMAN 50 UNIT/0.5 ML ML SQ SCH (07:30)
[2019-12-10] MEDS: METHYLPREDNISOLONE 40 MG INJ IV SCH (08:48)
[2019-12-10] MEDS ORDERED: METHYLPREDNISOLONE 40 MG INJ ONE (08:52)
[2019-12-10] MEDS ORDERED: PIPER/TAZO/NS 3.375gm 3.375 GM/100 ML BAG ONE (08:53)
[2019-12-10] MEDS: JUVEN PACKET PO SCH (09:00)
[2019-12-10] MEDS ORDERED: levoFLOXacin 500 MG TAB PO SCH (09:00)
[2019-12-10] MEDS: GLUCERNA SHAKE 237 ML CAN PO SCH (09:00)
[2019-12-10] MEDS: FOLIC ACID 1 MG TABLET PO SCH (09:00)
[2019-12-10] MEDS ORDERED: NA CHLORIDE 0.9% 100 ML IV ONE (09:03)
[2019-12-10 09:44] VITALS: TEMP 97.8
[2019-12-10] MEDS: ARFORMOTEROL TARTRATE 15 MCG/2 ML VIAL.NEB NEB SCH (09:55)
--- NOTE | 2019-12-10 10:15 | P.PN ---
Subjective Date of Service: 12/10/19 Chief Complaint: Stage IV lung cancer Patient is doing better she is weak shortness of breath and pain has improved schedule for a liver biopsy today Review of Systems General: Weakness Respiratory: Shortness of Breath Physical Examination - Vital Signs Temperature: 97.8 F Blood Pressure: 130/97 Pulse: 98 Respirations: 21 Pulse Ox (%): 99 - Physical Exam General: Alert, Oriented x3, Mild distress Respiratory: Diminished (Diminished on the left side) Cardiovascular: No edema, Regular rate/rhythm Assessment & Plan - Problems (Diagnosis) (1) Lung cancer Current Visit: No Status: Acute Plan: Patient has stage IV lung cancer awaiting liver biopsy pain has improved she still draining quite a bit from a PleurX catheter no evidence of sepsis suspect her white count is elevated due to the steroids of Dc the Solu-Medrol after b iopsy patient can be discharged home with home health drain the PleurX twice a week continue with her home medications follow-up with me next week saturation satisfactory prognosis very poor him mets to the brain Qualifiers: Laterality: left Physician Review Additional Text: I reviewed the plan of care for this patient on 12/06/19 by Patrick Malone, and I agree with the management as noted above.
[2019-12-10 11:01] VITALS: O2SAT 99
[2019-12-10 14:22] VITALS: BP 103/64
[2019-12-10] MEDS ORDERED: ARFORMOTEROL TARTRATE 15 MCG/2 ML VIAL.NEB ONE ×2 (15:27→21:20)
--- NOTE | 2019-12-10 21:35 | P.DS ---
Admission Date: 12/06/19 Discharge Date: 12/11/19 Disposition: ROUTINE DISCHARGE Discharge Condition: FAIR Reason for Admission: Stage IV lung cancer Vital Signs/Physical Exam: Temp Pulse Resp BP Pulse Ox 97.8 F 108 H 16 103/64 98 12/10/19 13:00 12/10/19 14:00 12/10/19 14:00 12/10/19 14:00 12/10/19 14:00 Laboratory Data at Discharge: WBC 26.7 K/uL (4.3-10.9) H* D 12/10/19 04:34 Hgb 13.1 g/dL (12.0-15.0) 12/10/19 04:34 Hct 40.9 % (36.0-45.0) 12/10/19 04:34 Plt Count 398 K/uL (152-406) D 12/10/19 04:34 PT 12.3 SECONDS (9.5-12.5) 12/06/19 22:24 INR 1.04 12/06/19 22:24 APTT 26.6 SECONDS (24.3-36.9) 12/06/19 22:24 Sodium 136 mmol/L (136-145) 12/10/19 04:34 Potassium 4.9 mmol/L (3.5-5.1) 12/10/19 04:34 BUN 36 mg/dL (7-18) H 12/10/19 04:34 Creatinine 0.84 mg/dL (0.55-1.3) 12/10/19 04:34 Glucose 217 mg/dL (74-106) H 12/10/19 04:34 Phosphorus 3.4 mg/dL (2.5-4.9) 12/07/19 16:58 Magnesium 2.0 mg/dL (1.8-2.4) 12/08/19 04:28 Total Bilirubin 0.5 mg/dL (0.2-1.0) 12/06/19 22:24 AST 32 U/L (15-37) 12/06/19 22:24 ALT 19 U/L (12-78) 12/06/19 22:24 Alkaline Phosphatase 108 U/L (45-117) 12/06/19 22:24 Lipase 52 U/L (73-393) L 12/06/19 22:24 Home Medications: Cyclobenzaprine [Flexeril*] 1 tab PO BEDTIME 12/08/19 Ergocalciferol (Vitamin D2) [Vitamin D2] 1 tab PO SEECOM 12/08/19 Folic Acid 1 tab PO DAILY 12/08/19 Gabapentin 2 tab PO BEDTIME 12/08/19 Metformin HCl 500 mg PO BID 12/08/19 Tramadol HCl [Ultram] 1 tab PO BID PRN 12/08/19 dexAMETHasone [Dexamethasone] 2 mg PO TID 12/08/19 Metoprolol Tartrate [Lopressor*] 25 mg PO BID 6AM 6PM 30 Days #60 tab 12/10/19 New Medications: Metoprolol Tartrate [Lopressor*] 25 mg PO BID 6AM 6PM 30 Days #60 tab Patient Discharge Instructions: Follow up with PCP within 1 week. Follow up with Dr. Gil. Follow up with Dr. Parrish. Liver biopsy will need to be set up as outpatient Diet: AHA Activity: Ad cynthia
--- NOTE | 2019-12-10 22:54 | PN ---
Date of Progress Note: 12/10/2019 Ms. Farnsworth had SVT after being admitted for bilateral pleural effusion, lung cancer stage IV, status post chest tube. We saw her for SVT. Today is 12/10/2019. Yesterday, we switched her from IV amio darone to p.o. metoprolol and she remained in sinus rhythm. Her overall status has improved. Her la st blood pressure was 103/64. She has sinus tachycardia at a rate of 108. She is afebrile. Her O2 saturations are 99% on nasal cannula. She still has an elevated white count. There is no evidence o f sepsis. Her white count is presumed to be elevated because of steroids. She is awaiting a liver b iopsy. She will be discharged on home health for her chest tube. Dr. Gil will be following her . From a cardiac standpoint, I believe sending her home on a low-dose metoprolol is reasonable assum ing her blood pressure tolerates it. I will sign off her case for now. YAKOV/BLANCHE Voice ID: [id number] Report ID: [id number]
--- NOTE | 2019-12-11 22:30 | P.DS ---
Admission Date: 12/06/19 Discharge Date: 12/11/19 Disposition: ROUTINE DISCHARGE Discharge Condition: FAIR Reason for Admission: Stage IV lung cancer Consultations: Cardiology - Dr. Collado Pulmonology - Dr. Gil [facility] Procedures: CT Chest 12/07/19 IMPRESSION: 1. Large mediastinal mass, stable. 2. Mediastinal adenopathy which is increased in severity. 3. Moderately severe diffuse pulmonary infiltrates in the left upper lobe. 4. Severe compressive atelectasis of the left lower lobe. 5. Spiculated mass lesions in the upper lobes bilaterally. TTE: 12/07 COMMENTS: TECHNICALLY DIFFICULT STUDY. POSITIVE PLEURAL EFFUSION BILATERAL. NO PERICARDIAL EFFUSION Placement of Left thoracic Pleur-X catheter Problem List Large left lung pleural effusion complicated by recent diagnosis of stage IV lung cancer Type 2 diabetes mellitus Severe malnutrition Brief History of Present Illness: 64-year-old female with a past medical history of diabetes, hypertension, depression and low stage IV lung cancer presents to the emergency room with complaints of worsening difficulty breathing. Patient states that for the past month she has had increasing difficulty breathing. Feels like she cannot catch her breath. Daughter called EMS. On arrival, patient's heart rate was 220-250, respiratory rate of 32 an initial blood pressure of 60/40. By the time patient presented to the emergency room her blood pressure had improved to 120/80, was given some gentle IV fluids in route and 15 mg of Cardizem. Patient was recently diagnosed with stage IV lung cancer. She was scheduled for a PET scan in the next day or 2. In the emergency room chest x-ray shows no significant change in the left lung opacity, mediastinal and hilar lymphadenopathy and left pleural effusion. CT scan of the chest pending. Lab work fairly unremarkable. Her last set of vitals shows a blood pressure of 99/63, pulse rate of 118, respiratory rate of 32, temperature 97.2 and a pulse oximeter of 94% on room air. She has lost a lot a weight in the recent few months. She is alert and oriented and in no distress. Has a mild labored breathing. Patient will be placed in observation and further evaluated. Patient wants to be DNR. Hospital Course: Large left lung pleural effusion complicated by Stage IV lung cancer -Pulm consulted, s/p bronch 12/06, s/p pleur-x cath placement 12/07, had significant improvement after catheter placed. -likely caused cardiac stress and contributed to development of SVT (see below) -discharged with MATEO drain to use with catheter. Family comfortable caring for this. -patient was to have a Liver biopsy performed on day of discharge, however IR felt patient was too weak and recommended outpatient biopsy in the near future. SVT -day after admission (12/06) patient developed sustained SVT (narrow complex, monomorphic) to 220s, feeling very short of breath and weak. -vagal maneuvers did not help, Adenosine was given x3 (6mg, 12mg, 12mg) with only temporary effect. -Amiodarone 150mg bolus was given and she was started on a drip, which decreased patient's HR To 120-130s. -likely due to pleural effusion in addition to patient's baseline sinus tachycardia -cardiology consulted - recommend switching to beta-zackary PO after 24hrs of amiodarone drip and Pleur-X catheter placement Vital Signs/Physical Exam: Temp Pulse Resp BP Pulse Ox 97.8 F 108 H 16 103/64 98 12/10/19 13:00 12/10/19 14:00 12/10/19 14:00 12/10/19 14:00 12/10/19 14:00 General: Alert, In no apparent distress, Cachectic HEENT: Atraumatic, PERRLA, EOMI Neck: Supple, JVD not distended Respiratory: Diminished (left lung base), Crackles/rales (left lung base) Cardiovascular: Regular rate/rhythm, Normal S1 S2 Gastrointestinal: Normal bowel sounds, No tenderness Musculoskeletal: No tenderness Integumentary: No rashes Neurological: Normal speech, Normal tone, Normal affect Laboratory Data at Discharge: WBC 26.7 K/uL (4.3-10.9) H* D 12/10/19 04:34 Hgb 13.1 g/dL (12.0-15.0) 12/10/19 04:34 Hct 40.9 % (36.0-45.0) 12/10/19 04:34 Plt Count 398 K/uL (152-406) D 12/10/19 04:34 PT 12.3 SECONDS (9.5-12.5) 12/06/19 22:24 INR 1.04 12/06/19 22:24 APTT 26.6 SECONDS (24.3-36.9) 12/06/19 22:24 Sodium 136 mmol/L (136-145) 12/10/19 04:34 Potassium 4.9 mmol/L (3.5-5.1) 12/10/19 04:34 BUN 36 mg/dL (7-18) H 12/10/19 04:34 Creatinine 0.84 mg/dL (0.55-1.3) 12/10/19 04:34 Glucose 217 mg/dL (74-106) H 12/10/19 04:34 Phosphorus 3.4 mg/dL (2.5-4.9) 12/07/19 16:58 Magnesium 2.0 mg/dL (1.8-2.4) 12/08/19 04:28 Total Bilirubin 0.5 mg/dL (0.2-1.0) 12/06/19 22:24 AST 32 U/L (15-37) 12/06/19 22:24 ALT 19 U/L (12-78) 12/06/19 22:24 Alkaline Phosphatase 108 U/L (45-117) 12/06/19 22:24 Lipase 52 U/L (73-393) L 12/06/19 22:24 Home Medications: Cyclobenzaprine [Flexeril*] 1 tab PO BEDTIME 12/08/19 Ergocalciferol (Vitamin D2) [Vitamin D2] 1 tab PO SEECOM 12/08/19 Folic Acid 1 tab PO DAILY 12/08/19 Gabapentin 2 tab PO BEDTIME 12/08/19 Metformin HCl 500 mg PO BID 12/08/19 Tramadol HCl [Ultram] 1 tab PO BID PRN 12/08/19 dexAMETHasone [Dexamethasone] 2 mg PO TID 12/08/19 Metoprolol Tartrate [Lopressor*] 25 mg PO BID 6AM 6PM 30 Days #60 tab 12/10/19 New Medications: Metoprolol Tartrate [Lopressor*] 25 mg PO BID 6AM 6PM 30 Days #60 tab Patient Discharge Instructions: Follow up with PCP within 1 week. Follow up with Dr. Gil. Follow up with Dr. Parrish. Liver biopsy will need to be set up as outpatient Diet: [facility] Activity: Ad cynthia Time spent managing pt's care (in minutes): 45
[2019-12-12] MEDS ORDERED: IPRATROPIUM BROM 0.5MG/2.5ML ONE (01:07)
[2019-12-15] MEDS ORDERED: DRISDOL (VITAMIN D=ERGOCALCIFEROL) 50000 UNIT CAP PO SCH (09:00)
== END 2019-12-10 19:00 | disposition home or self-care (01) | DRG 180 ==
LOC: ER 18:50 → ERHOLD 23:29 → 4TH 12-07 00:09 → ERHOLD 12-07 17:29
PROVIDERS: ADMIT Hospitalist; ATTEND Hospitalist
PROC: 0W9B30Z Drainage of Left Pleural Cavity with Drainage Device, Percutaneous Approach (ICD-10-PCS; principal; 2019-12-08)
DX: C34.92 Malignant neoplasm of unspecified part of left bronchus or lung (principal); E43 Unspecified severe protein-calorie malnutrition; Z68.1 Body mass index [BMI] 19.9 or less, adult; C79.31 Secondary malignant neoplasm of brain; J91.0 Malignant pleural effusion; I47.1 Supraventricular tachycardia; E78.5 Hyperlipidemia, unspecified; J93.9 Pneumothorax, unspecified; E11.9 Type 2 diabetes mellitus without complications; F17.210 Nicotine dependence, cigarettes, uncomplicated; I10 Essential (primary) hypertension; R06.02 Shortness of breath; Z85.118 Personal history of other malignant neoplasm of bronchus and lung; Z90.710 Acquired absence of both cervix and uterus; Z90.49 Acquired absence of other specified parts of digestive tract; Z88.5 Allergy status to narcotic agent; Z91.09 Other allergy status, other than to drugs and biological substances; Z79.84 Long term (current) use of oral hypoglycemic drugs; Z79.899 Other long term (current) drug therapy; Z20.828 Contact with and (suspected) exposure to other viral communicable diseases
CPT/HCPCS: 36415; 71045; 71250; 77280; 77290; 77295; 77300; 77334; 80048; 80076; 81003; 81015; 82550; 82553; 82947; 83605; 83615; 83690; 83735; 83880; 84100; 84155; 84484; 85025; 85027; 85379; 85610; 85730; 87015; 87040; 87070; 87116; 87206; 88108; 88305; 89050; 93005; 93306; 94640; 94760; 96372; 99203; 99285; J0153; J0282; J0456; J0696; J1650; J2270; J2405; J2543; J2550; J2920; J3475; J7040; J7050; J7060; J7605; U0003

== ENCOUNTER 2019-12-11 16:58 | Observation (INO) | payer BC ==
[2019-12-11] MEDS ORDERED: NA CHLORIDE 0.9% 1,000 ML ONE (18:18)
[2019-12-11 18:29] LABS: Protime INR 0.97
[2019-12-11 18:34] LABS: Absolute Lymphocytes (CBC) 0.4 K/uL (0.7-4.9); Basophils % 0.2 % (0-1.3); Hematocrit 42.6 % (36.0-45.0); Lymphocytes % 1.9 % (15.3-44.8); RBC Red Blood Cell Count 4.53 M/uL (3.86-4.86)
[2019-12-11 18:47] LABS: Albumin 2.6 g/dL (3.4-5.0); Bilirubin Direct 0.1 mg/dL (0-0.2); Bilirubin Total 0.4 mg/dL (0.2-1.0); Potassium 4.8 mmol/L (3.5-5.1); Protein, Total 6.7 g/dL (6.4-8.2); Troponin (Emerg Dept Use Only) 0.2 ng/mL (0.0-0.045)
--- NOTE | 2019-12-11 18:51 | EDPHYS ---
Physician Documentation [facility] Name: Helga Farnsworth Age: 64 yrs Sex: Female : 1955 Arrival Date: 12/11/2019 Time: 17:01 Bed 14 Private MD: Werner Rooney R ED Physician Aniket Miller HPI: 12/10 18:07 This 64 yrs old Female presents to ER via Wheelchair with complaints of High ma2 Blood Sugar, High Blood Pressure. 18:46 This 64 yrs old Female presents to ER via Wheelchair with complaints of High ma2 Blood Sugar, High Blood Pressure. 18:46 Onset: The symptoms/episode began/occurred gradually, 1 day(s) ago. Associated signs ma2 and symptoms: Pertinent positives: anorexia. Current symptoms: In the emergency department the patient's symptoms are unchanged from the initial presentation. The patient has not experienced similar symptoms in the past. spo2 88 on RA. 18:46 hx of lung ca on chest tube, was just d/c from hospital last nights, without O2 and now ma2 her spo2 is 88 on RA, she did not eat since yesterday did not sleep and been sob. Historical: - Allergies: 17:12 HYDROCODONE; iw 17:12 Iodine; IV contrast; iw - PMHx: 17:12 Cancer, Lung; Depression; Diabetes - NIDDM; Hyperlipidemia; Hypertension; mediastinal iw mass; - PSHx: 17:12 Hernia repair; Hysterectomy; Cholecystectomy; iw - Immunization history:: Adult Immunizations. - Social history:: Smoking status: Patient/guardian denies using tobacco, Stopped _ months ago 1 Patient/guardian denies using alcohol, street drugs, The patient lives with spouse. - Family history:: not pertinent. ROS: 18:46 Constitutional: Negative for fever, chills, and weight loss. ma2 18:46 All other systems are negative. Exam: 18:46 Constitutional: This is a well developed, well nourished patient who is awake, alert, ma2 and in no acute distress. Chest/axilla: Normal chest wall appearance and motion. Nontender with no deformity. No lesions are appreciated. Cardiovascular: Regular rate and rhythm with a normal S1 and S2. No gallops, murmurs, or rubs. Normal PMI, no JVD. No pulse deficits. Respiratory: chest tube in good order, draining, no pulpe suction, her spo2 ois 91 on 2LnC Lungs have equal breath sounds bilaterally, clear to auscultation and percussion. No rales, rhonchi or wheezes noted. No increased work of breathing, no retractions or nasal flaring. Abdomen/GI: Soft, non-tender, with normal bowel sounds. No distension or tympany. No guarding or rebound. No evidence of tenderness throughout. Back: No spinal tenderness. No costovertebral tenderness. Full range of motion. MS/ Extremity: Pulses equal, no cyanosis. Neurovascular intact. Full, normal range of motion. Neuro: Awake and alert, GCS 15, oriented to person, place, time, and situation. Cranial nerves II-XII grossly intact. Motor strength 5/5 in all extremities. Sensory grossly intact. Cerebellar exam normal. Normal gait. Vital Signs: 17:09 BP 111 / 68; Pulse 110; Resp 18 S; Temp 97.2(TE); Pulse Ox 91% on R/A; Weight 56.7 kg; iw Height 5 ft. 7 in. (170.18 cm); 18:54 BP 107 / 65; Pulse 102; Resp 16; Temp 97.4(O); Pulse Ox 100% on 2 lpm NC; Pain 0/10; ls4 17:09 Body Mass Index 19.58 (56.70 kg, 170.18 cm) iw MDM: 17:43 Patient medically screened. or2 18:46 Differential diagnosis: hyperglycemia, hyperthyroidism. Data reviewed: vital signs, [facility] nurses notes. Counseling: I had a detailed discussion with the patient and/or guardian regarding: the historical points, exam findings, and any diagnostic results supporting the discharge/admit diagnosis, the presence of at least one elevated blood pressure reading (>120/80) during this emergency department visit. Response to treatment: There is no appreciated change of the patient's symptoms at this time. ED course: discussed with Rashid, after i called dr king and he advised to call hospitalist, accepted by thu. 12/10 17:47 Order name: Basic Metabolic Panel [facility] 12/10 17:47 Order name: CBC with Diff [facility] 12/10 17:47 Order name: LFT's [facility] 12/10 17:47 Order name: Magnesium [facility] 12/10 17:47 Order name: NT PRO-BNP [facility] 12/10 17:47 Order name: PT-INR; Complete Time: 18:42 [facility] 12/10 17:47 Order name: Troponin (emerg Dept Use Only) [facility] 12/10 17:47 Order name: XRAY Chest (1 view) [facility] 12/10 17:47 Order name: EKG; Complete Time: 17:48 [facility] 12/10 17:47 Order name: Cardiac monitoring; Complete Time: 18:06 [facility] 12/10 17:47 Order name: EKG - Nurse/Tech; Complete Time: 23:43 [facility] 12/10 17:47 Order name: IV Saline Lock; Complete Time: 18:06 [facility] 12/10 17:47 Order name: Labs collected and sent; Complete Time: 18:06 [facility] 12/10 17:47 Order name: O2 Per Protocol; Complete Time: 18:06 [facility] 12/10 17:47 Order name: O2 Sat Monitoring; Complete Time: 18:06 [facility] Administered Medications: 18:15 Drug: NS 0.9% 1000 ml Route: IV; Rate: 1 bolus; Site: right antecubital; ls4 19:15 Follow up: IV Status: Completed infusion; IV Intake: 1000ml ls4 Disposition: 12/11/19 18:50 Hospitalization ordered by Werner Rooney for Observation. Preliminary diagnosis is Hypoxemia. - Bed requested for Telemetry/MedSurg (observation). - Status is Observation. ls4 - Condition is Stable. - Problem is new. - Symptoms are unchanged. Signatures: Dispatcher [employer] EDMD Cyndie Beasley RN RN Dianne Romero RN RN Aniket Miller MD MD [facility] Jeri Quick RN RN ls4 Corrections: (The following items were deleted from the chart) 19:20 19:11 CORONAVIRUS+MR.LAB.BRZ ordered. [facility] EDMD 20:31 18:50 Hospitalization Ordered by Werner Rooney MD for Observation. Preliminary diagnosis mw is Hypoxemia. Bed requested for Telemetry/MedSurg (observation). Status is Observation. Condition is Stable. Problem is new. Symptoms are unchanged. [facility] 21:13 20:31 12/11/2019 18:50 Hospitalization Ordered by Werner Rooney MD for Observation. ls4 Preliminary diagnosis is Hypoxemia. Bed requested for Telemetry/MedSurg (observation). Status is Observation. Condition is Stable. Problem is new. Symptoms are unchanged. mw
--- NOTE | 2019-12-11 18:51 | ER ---
Nurse's Notes [facility] Name: Helga Farnsworth Age: 64 yrs Sex: Female : 1955 Arrival Date: 12/11/2019 Time: 17:01 Bed 14 Private MD: Werner Rooney R Diagnosis: Hypoxemia Presentation: 12/10 17:09 Chief complaint: Patient states: BP was low at home (111/82) and BS was high (529), was iw just d/c from hospital yesterday for fluid on lung, has hx of lung cancer with mets to brain, had drain placed during this visit, is due for a biopsy , is here bc of the BP and BS. Coronavirus screen: At this time, the client does not indicate any symptoms associated with coronavirus-19. Ebola Screen: Patient negative for fever greater than or equal to 101.5 degrees Fahrenheit, and additional compatible Ebola Virus Disease symptoms Patient denies exposure to infectious person. Patient denies travel to an Ebola-affected area in the 21 days before illness onset. No symptoms or risks identified at this time. Initial Sepsis Screen: Does the patient meet any 2 criteria? No. Patient's initial sepsis screen is negative. Does the patient have a suspected source of infection? No. Patient's initial sepsis screen is negative. Risk Assessment: Do you want to hurt yourself or someone else? Patient reports no desire to harm self or others. Onset of symptoms was December 11, 2019. 17:09 Method Of Arrival: Wheelchair iw 17:09 Acuity: AARON 3 iw Triage Assessment: 18:54 General: Appears ill, cachectic, Behavior is calm, cooperative. Pain: Denies pain. ls4 Historical: - Allergies: 17:12 HYDROCODONE; iw 17:12 Iodine; IV contrast; iw - PMHx: 17:12 Cancer, Lung; Depression; Diabetes - NIDDM; Hyperlipidemia; Hypertension; mediastinal iw mass; - PSHx: 17:12 Hernia repair; Hysterectomy; Cholecystectomy; iw - Immunization history:: Adult Immunizations. - Social history:: Smoking status: Patient/guardian denies using tobacco, Stopped _ months ago 1 Patient/guardian denies using alcohol, street drugs, The patient lives with spouse. - Family history:: not pertinent. Screenin:52 Abuse screen: Denies threats or abuse. Denies injuries from another. Nutritional ls4 screening: No deficits noted. Tuberculosis screening: No symptoms or risk factors identified. Fall Risk None identified. Assessment: 17:00 Reassessment: Patient appears in no apparent distress at this time. Patient and/or ls4 family updated on plan of care and expected duration. Pain level reassessed. Patient is alert, oriented x 3, equal unlabored respirations, skin warm/dry/pink. 17:30 Reassessment: Patient appears in no apparent distress at this time. Patient and/or ls4 family updated on plan of care and expected duration. Pain level reassessed. Patient is alert, oriented x 3, equal unlabored respirations, skin warm/dry/pink. 18:00 Reassessment: Patient appears in no apparent distress at this time. Patient and/or ls4 family updated on plan of care and expected duration. Pain level reassessed. Patient is alert, oriented x 3, equal unlabored respirations, skin warm/dry/pink. Vital Signs: 17:09 BP 111 / 68; Pulse 110; Resp 18 S; Temp 97.2(TE); Pulse Ox 91% on R/A; Weight 56.7 kg; iw Height 5 ft. 7 in. (170.18 cm); 18:54 BP 107 / 65; Pulse 102; Resp 16; Temp 97.4(O); Pulse Ox 100% on 2 lpm NC; Pain 0/10; ls4 17:09 Body Mass Index 19.58 (56.70 kg, 170.18 cm) iw ED Course: 17:01 Patient arrived in ED. mr 17:01 Werner Rooney MD is Private Physician. mr 17:10 No provider procedures requiring assistance completed. Oxygen administration via nasal ls4 cannula \T\ 2L/min. 17:12 Triage completed. iw 17:12 Arm band placed on. iw 17:43 Aniket Miller MD is Attending Physician. ma2 18:03 Jeri Quick, SOHAM is Primary Nurse. ls4 18:18 Initial lab(s) drawn, by me, sent to lab. Inserted saline lock: 24 gauge in right hand, jp3 using aseptic technique. Blood collected. 18:21 Patient has correct armband on for positive identification. Bed in low position. Call jp3 light in reach. Side rails up X 1. Warm blanket given. Verbal reassurance given. Pulse ox on. NIBP on. 18:26 XRAY Chest (1 view) In Process Unspecified. EDMS 18:50 Werner Rooney MD is Hospitalizing Provider. ma2 Administered Medications: 18:15 Drug: NS 0.9% 1000 ml Route: IV; Rate: 1 bolus; Site: right antecubital; ls4 19:15 Follow up: IV Status: Completed infusion; IV Intake: 1000ml ls4 Intake: 19:15 IV: 1000ml; Total: 1000ml. ls4 Outcome: 18:50 Decision to Hospitalize by Provider. ma2 20:55 Admitted to Tele accompanied by tech, via stretcher, room 224, with chart, Report bb called to Lisa ROUSSEAU for room 224 21:13 Patient left the ED. ls4 Signatures: Dispatcher [employer] EDOK Mercedes Beard Brenda, RN RN Dianne Gould RN RN Aniket Fernandes MD MD ma2 Cooper Diego 3 Jeri Quick, SOHAM RN ls4
--- NOTE | 2019-12-11 19:59 | P.HP ---
Certification for Inpatient Patient admitted to: Observation With expected LOS: <2 Midnights Patient will require the following post-hospital care: Hospice Practitioner: I am a practitioner with admitting privileges, knowledge of patient current condition, hospital course, and medical plan of care. Services: Services provided to patient in accordance with Admission requirements found in Title 42 Section 412.3 of the Code of Federal Regulations <Patrick Malone - Last Filed: 12/11/19 19:53> Patient History Date of Service: 12/11/19 Reason for admission: Acute hypoxic respiratory failure History of Present Illness: 64-year-old female with a past medical history of type 2 diabetes mellitus, depression, hypertension and stage IV lung cancer who was discharged from the hospital yesterday after receiving a PleurX catheter for chronic pleural effusion secondary to her advanced lung cancer. Daughter brought patient back t o the ER because the patient feels like she cannot breathe. In the emergency room patient has mild labored breathing. Her room air oxygen saturations are 88-91% on room air. Daughter states that she desaturates and struggles with minimal effort and movement. Patient is also not eating. Has no appetite and no interest in eating. Patient will be placed in observation. She will likely require home oxygen and family wants to discuss hospice. - Past Medical/Surgical History Diabetic: Yes -: DM -: HTN -: Hypercholesterolemia -: Depression -: Restless Leg syndrome -: Lung Cancer Stage 4 -: Darshana -: Hysterectomy -: Hernia -: Hemoroids removed -: Catarct Surgery -: appendectomy Psychosocial/ Personal History: Lives at home - Family History Father -: Lung disease, Cancer Notes: colon ca, mesothelioma Mother -: Heart disease, Hypertension, Diabetes, Cancer Notes: uterine, Alzheimers - Social History Alcohol use: No CD- Drugs: No Caffeine use: Yes Place of Residence: Home <Patrick Malone - Last Filed: 12/11/19 19:53> Date of Service: 12/12/19 <Steven Llanes - Last Filed: 12/12/19 11:04> Allergies iodine Allergy (Mild, Verified 05/11/17 21:52) Itching/Hives/Rash hydrocodone Allergy (Verified 12/07/19 01:12) Unknown Home Medications: Cyclobenzaprine [Flexeril*] 1 tab PO BEDTIME 12/08/19 Ergocalciferol (Vitamin D2) [Vitamin D2] 1 tab PO SEECOM 12/08/19 Folic Acid 1 tab PO DAILY 12/08/19 Gabapentin 2 tab PO BEDTIME 12/08/19 Metformin HCl 500 mg PO BID 12/08/19 Tramadol HCl [Ultram] 1 tab PO BID PRN 12/08/19 dexAMETHasone [Dexamethasone] 2 mg PO TID 12/08/19 Metoprolol Tartrate [Lopressor*] 25 mg PO BID 6AM 6PM 30 Days #60 tab 12/10/19 Review of Systems General: As per HPI Eyes: Unremarkable ENT: Unremarkable Respiratory: Shortness of Breath, SOB with Excertion Cardiovascular: Unremarkable Gastrointestinal: Other (Lack of appetite), Unremarkable Genitourinary: Unremarkable Musculoskeletal: Unremarkable Integumentary: Unremarkable Neurological: Weakness Lymphatics: Unremarkable <Patrick Malone - Karsten Filed: 12/11/19 19:53> Physical Examination - Vital Signs Temperature: 97.2 F Blood Pressure: 111/68 Pulse: 110 Respirations: 18 Pulse Ox (%): 91 (RA) - Physical Exam General: Alert, Oriented x3, Mild distress HEENT: Atraumatic, Normocephalic, PERRLA, Mucous membr. moist/pink Neck: Supple, Other (Trachea midline) Respiratory: Diminished, Other (PleurX catheter in place left chest) Cardiovascular: No edema, Normal pulses, Normal S1 S2 Capillary refill: <2 Seconds Gastrointestinal: Normal bowel sounds, Soft and benign, Non-distended Musculoskeletal: No swelling, No contractures, No erythema Integumentary: No rashes, No significant lesion, Skin breakdown (Stage II pressure ulcer coccyx area) Neurological: Normal gait, Normal speech, Normal tone, Abnormal strength (Generalized debility) - Studies Laboratory Data (last 24 hrs) 12/11/19 18:18: PT 11.5, INR 0.97 12/11/19 18:18: WBC 21.7 H* D, Hgb 13.6, Hct 42.6, Plt Count 378 12/11/19 18:18: Sodium 134 L, Potassium 4.8, BUN 43 H, Creatinine 1.06, Glucose 321 H, Magnesium 2.0, Total Bilirubin 0.4, AST 33, ALT 18, Alkaline Phosphatase 116 <Patrick Malone - Last Filed: 12/11/19 19:53> - Studies Laboratory Data (last 24 hrs) 12/11/19 18:18: PT 11.5, INR 0.97 12/11/19 18:18: WBC 21.7 H* D, Hgb 13.6, Hct 42.6, Plt Count 378 12/11/19 18:18: Sodium 134 L, Potassium 4.8, BUN 43 H, Creatinine 1.06, Glucose 321 H, Magnesium 2.0, Total Bilirubin 0.4, AST 33, ALT 18, Alkaline Phosphatase 116 <Steven Llanes - Last Filed: 12/12/19 11:04> Assessment and Plan - Plan Impression: Status post thoracentesis with left lung Pleurx catheter in place secondary to a history of stage IV lung cancer: Acute hypoxic respiratory failure: Generalized debility: Type 2 diabetes mellitus: Severe malnutrition: Plan: Status post thoracentesis with left lung Pleurx catheter in place secondary to a history of stage IV lung cancer: Patient was discharged yesterday from hospital after a thoracentesis and PleurX catheter in left chest. Patient returns complaining of dyspnea on exertion. Patient has a history of advanced lung cancer. Patient also wants to discuss hospice. Acute hypoxic respiratory failure: Room air saturations of 88-91% that likely drop significantly with exertion due to her diagnosis of advanced lung cancer. Patient will likely require home oxygen and would benefit from home oxygen. Generalized debility: Secondary to advanced lung cancer. Fall precautions. Type 2 diabetes mellitus: Will resume all medications. Accu-Cheks a.c. HS. Sliding scale insulin. Severe malnutrition: Patient has no appetite. Patient does not want to eat either. Family concerned. Discharge Plan: Home Plan to discharge in: 48 Hours - Advance Directives Does patient have a Living Will: No Does patient have a Durable POA for Healthcare: Yes - Code Status/Comfort Care Code Status Assessed: Yes Time Spent Managing Pts Care (In Minutes): 55 <Patrick Malone - Last Filed: 12/11/19 19:53> Physician Review: Patient Assessed, Agree with Above Assessment and Plan Physician Review Additional Text: Agree with the assessment and plan as documented by the NIKOLAI on 01/11/2020 <Steven Llanes - Last Filed: 12/12/19 11:04>
[2019-12-11] MEDS: IPRATROPIUM BROM 0.5MG/2.5ML NEB SCH (20:00)
--- NOTE | 2019-12-11 20:10 | RAD REPORT ---
EXAM DESCRIPTION: RAD - Chest Single View - 12/11/2019 6:26 pm CLINICAL HISTORY: low BP COMPARISON: Portable December 09 TECHNIQUE: AP portable chest image was obtained 12/11/2019 6:26 pm . FINDINGS: Minimal left apical pneumothorax is still present. No change in position of the chest tube . Left parenchymal opacification and pleural opacification have not changed. Prominent interstitial m [place]kings in the right lung field also stable. Heart size within normal limits. No right-sided pleural effusion. IMPRESSION: Stable chest as detailed.
[2019-12-11] MEDS ORDERED: IPRATROPIUM BROM 0.5MG/2.5ML ONE (20:23)
[2019-12-11 21:15] LABS: Blood Morphology Comment NOT SEEN (NOT SEEN); Platelet Estimate ADEQ
[2019-12-11 21:35] VITALS: BMI 18.9
[2019-12-12] MEDS: IPRATROPIUM BROM 0.5MG/2.5ML NEB SCH ×4 (01:00→19:45)
[2019-12-12] MEDS ORDERED: LORazepam 2 MG/ML VIAL IV PRN (04:45)
[2019-12-12 06:39] LABS: Absolute Lymphocytes (CBC) 0.4 K/uL (0.7-4.9); Basophils % 0.2 % (0-1.3); Hematocrit 39.5 % (36.0-45.0); Lymphocytes % 1.9 % (15.3-44.8); MPV 8.1 fL (7.6-11.3); RBC Red Blood Cell Count 4.18 M/uL (3.86-4.86)
[2019-12-12 06:55] LABS: Magnesium 1.8 mg/dL (1.8-2.4); Potassium 4.4 mmol/L (3.5-5.1)
[2019-12-12] MEDS: ENOXAPARIN 40 MG/0.4 ML SQ SCH (08:39)
[2019-12-12 08:43] LABS: Blood Morphology Comment NOT SEEN (NOT SEEN); Platelet Estimate ADEQ; White Blood Cell Scan OK
[2019-12-12] MEDS ORDERED: MAGNESIUM SULFATE 1 gm IVPB 1 GM/100 ML BAG IV ONE (10:00)
[2019-12-12] MEDS ORDERED: METOPROLOL TARTRATE 5 MG/5 ML INJ IV PRN (10:09)
[2019-12-12] MEDS: NA CHLORIDE 0.9% 1,000 ML IV SCH (10:19)
[2019-12-12] MEDS: ALBUMIN HUMAN 25% 100 ML IV SCH ×2 (10:19→17:51)
--- NOTE | 2019-12-12 10:41 | P.PN ---
Subjective Date of Service: 12/12/19 Chief Complaint: Acute hypoxic respiratory failure Subjective: Other (Shortness of breath present Had a run of SVT resolved by itself) Review of Systems 10-point ROS is otherwise unremarkable Physical Examination - Vital Signs Temperature: 96.6 F Blood Pressure: 119/65 Pulse: 110 Respirations: 20 Pulse Ox (%): 93 - Physical Exam General: Alert, Mild distress HEENT: Atraumatic, Normocephalic Neck: Supple Respiratory: Diminished, Crackles/rales Cardiovascular: Regular rate/rhythm, Normal S1 S2, Edema Capillary refill: <2 Seconds Gastrointestinal: Soft and benign, W/out hepatosplenomegaly Musculoskeletal: No clubbing, Swelling Integumentary: No rashes, No breakdown Neurological: Normal speech, Normal strength at 5/5 x4 extr Lymphatics: No axilla or inguinal lymphadenopathy - Studies Laboratory Data (last 24 hrs) 12/11/19 18:18: PT 11.5, INR 0.97 12/11/19 18:18: WBC 21.7 H* D, Hgb 13.6, Hct 42.6, Plt Count 378 12/11/19 18:18: Sodium 134 L, Potassium 4.8, BUN 43 H, Creatinine 1.06, Glucose 321 H, Magnesium 2.0, Total Bilirubin 0.4, AST 33, ALT 18, Alkaline Phosphatase 116 Assessment & Plan Physician Review Additional Text: Status post thoracentesis with left lung Pleurx catheter in place secondary to a history of stage IV lung cancer: Acute hypoxic respiratory failure: Generalized debility: Type 2 diabetes mellitus: Severe malnutrition: SVT and hypotension Plan: Status post thoracentesis with left lung Pleurx catheter in place secondary to a history of stage IV lung cancer: Patient was recently discharged after a thoracentesis and PleurX catheter in left chest. Patient returns complaining of dyspnea on exertion. has a history of advanced lung cancer. Pain control oxygen supplementation Acute hypoxic respiratory failure: Room air saturations of 88-91% that likely drop significantly with exertion due to her diagnosis of advanced lung cancer. Patient will likely require home oxygen and would benefit from home oxygen. Generalized debility: Secondary to advanced lung cancer. Fall precautions. Type 2 diabetes mellitus: Will resume all medications. Accu-Cheks a.c. HS. Sliding scale insulin. Severe malnutrition: nutritional supplements SVT and hypotension : Start her on albumin and IV fluids Disposition : social service consult for hospice Discussed with family Pain control Awaiting hospice arrangement Time Spent Managing Pts Care (In Minutes): 42
[2019-12-12] MEDS ORDERED: KETOROLAC 30 MG/ML INJ IV PRN (15:18)
[2019-12-12] MEDS ORDERED: CEFEPIME 1 GM/10 ML SYR IV SCH (16:30)
[2019-12-12] MEDS ORDERED: CEFEPIME/SWI 1gm 10 ML IVP SCH (17:00)
[2019-12-12] MEDS ORDERED: VANCOMYCIN 1.25 GM in NA CHLORIDE 0.9% 250 ML IVPB SCH (17:00)
[2019-12-12] MEDS ORDERED: D50W 25 GM/50 ML SYRINGE/VIAL IV PRN (17:09)
[2019-12-12] MEDS ORDERED: GLUCAGON 1 MG/VIAL IM PRN (17:09)
--- NOTE | 2019-12-12 17:14 | P.PN ---
Subjective Date of Service: 12/12/19 Chief Complaint: Shortness of breath Patient is 64 years of age terminally ill with metastatic lung cancer was is discharged admitted back again patient is hypoxic complaining of chest pain not doing very well as deteriorated fairly rapidly Review of Systems General: Weakness, Other (Weight loss) Respiratory: Shortness of Breath Cardiovascular: Chest Pain Gastrointestinal: Nausea Physical Examination - Vital Signs Temperature: 96.6 F Blood Pressure: 108/62 Pulse: 108 Respirations: 21 Pulse Ox (%): 93 - Physical Exam General: Alert, Oriented x3, Mild distress Respiratory: Diminished (Diminished air entry in the left side), Expiratory wheezes Cardiovascular: No edema, Regular rate/rhythm, Normal S1 S2 Gastrointestinal: Normal bowel sounds, Soft and benign - Studies Laboratory Data (last 24 hrs) 12/11/19 18:18: PT 11.5, INR 0.97 12/11/19 18:18: WBC 21.7 H* D, Hgb 13.6, Hct 42.6, Plt Count 378 12/11/19 18:18: Sodium 134 L, Potassium 4.8, BUN 43 H, Creatinine 1.06, Glucose 321 H, Magnesium 2.0, Total Bilirubin 0.4, AST 33, ALT 18, Alkaline Phosphatase 116 Assessment & Plan - Problems (Diagnosis) (1) Metastatic primary lung cancer Current Visit: Yes Status: Acute Plan: Patient is 64 years of age with metastatic lung cancer she recently had a PleurX catheter placed on the left side was discharged admitted back again with very large mass in the lung labs reviewed patient is hyperglycemic is haziness on the left side has a PleurX catheter in place catheter is not draining much continue with antibiotics patient rescheduled for a liver biopsy air prognosis is very poor he wants to be full code as been present at the bedside patient was prescribed narcotics by me at home also S presume underlying COPD a given a steroids and bronchodilators patient was already on dexamethasone due to metastatic lung disease to the brain Qualifiers: Laterality: left Qualified Code(s): C34.92 - Malignant neoplasm of unspecified part of left bronchus or lung Physician Review: Patient Assessed, Agree with Above Assessment and Plan Physician Review Additional Text: Agree with the assessment and plan as documented by the NIKOLAI on 01/11/2020
[2019-12-12] MEDS ORDERED: VANCOMYCIN 1.25 GM in NA CHLORIDE 0.9% 250 ML IVPB ONE (18:00)
[2019-12-12] MEDS ORDERED: VANCOMYCIN 500 MG/VIAL ONE (18:38)
[2019-12-12] MEDS ORDERED: VANCOMYCIN 1 GM/VIAL ONE (18:40)
[2019-12-12] MEDS: CEFEPIME/SWI 1gm 10 ML IVP SCH (20:31)
[2019-12-12] MEDS: METHYLPREDNISOLONE 125 MG INJ IV SCH (20:33)
[2019-12-12] MEDS: INSULIN GLARGINE 100 UNITS/ML SQ SCH (20:41)
[2019-12-12] MEDS ORDERED: METHYLPREDNISOLONE 125 MG INJ IV SCH (21:00)
[2019-12-13] MEDS: TRAMADOL 37.5mg/APAP 325mg PER TAB PO PRN ×2 (01:09→22:32)
[2019-12-13] MEDS: IPRATROPIUM BROM 0.5MG/2.5ML NEB SCH ×4 (01:10→19:30)
[2019-12-13] MEDS: ALBUMIN HUMAN 25% 100 ML IV SCH ×3 (02:18→18:00)
[2019-12-13 06:08] LABS: Magnesium 2.2 mg/dL (1.8-2.4); Potassium 4.9 mmol/L (3.5-5.1)
[2019-12-13] MEDS: NA CHLORIDE 0.9% 1,000 ML IV SCH ×2 (07:40→21:25)
[2019-12-13] MEDS: CEFEPIME/SWI 1gm 10 ML IVP SCH ×2 (07:40→21:08)
[2019-12-13] MEDS: METHYLPREDNISOLONE 125 MG INJ IV SCH ×2 (07:41→21:08)
[2019-12-13 08:49] LABS: Urine Appearance CLEAR; Urine Bilirubin NEGATIVE (NEG); Urine Blood NEGATIVE (NEG); Urine Color YELLOW; Urine Glucose 3+ (NEG); Urine Protein TRACE (NEG); Urine Specific Gravity 1.025 (1.005-1.030); Urine Urobilinogen 0.2 mg/dL (0.2-1.0); Urine pH 5.5 (5.0-7.0)
[2019-12-13 08:58] LABS: Urine Microscopic Reflex ORDER UMIC
[2019-12-13] MEDS: ENOXAPARIN 40 MG/0.4 ML SQ SCH ×2 (09:00→12:03)
[2019-12-13 10:22] LABS: Urine Bacteria <20 /HPF (<20); Urine Culture Reflex Order REFLEXED; Urine RBC NONE SEEN /HPF (NONE SEEN); Urine Yeast PRESENT (NONE SEEN)
--- NOTE | 2019-12-13 12:36 | P.PN ---
Subjective Date of Service: 12/13/19 Chief Complaint: Shortness of breath Subjective: No new changes continues with SOB, feeling uncomfortable, no appetite, weak/tired Review of Systems 10-point ROS is otherwise unremarkable Physical Examination - Vital Signs Temperature: 97.0 F Blood Pressure: 143/69 Pulse: 110 Respirations: 20 Pulse Ox (%): 92 - Physical Exam General: Cachectic, Other (appears tired/weak) HEENT: Sclerae nonicteric Neck: Supple, JVD not distended Respiratory: Diminished, Crackles/rales (LLL) Cardiovascular: No edema, Normal S1 S2 Gastrointestinal: Normal bowel sounds, Soft and benign, No tenderness Musculoskeletal: No erythema, No tenderness Integumentary: No rashes Neurological: Normal speech, Normal affect Assessment & Plan Physician Review Additional Text: Status post thoracentesis with left lung Pleurx catheter in place secondary to a history of stage IV lung cancer: Acute hypoxic respiratory failure: Generalized debility: Type 2 diabetes mellitus: Severe malnutrition: SVT and hypotension Plan: Status post thoracentesis with left lung Pleurx catheter in place secondary to a history of stage IV lung cancer: Patient was recently discharged after a thoracentesis and PleurX catheter in left chest. Returns complaining of dyspnea on exertion. Pain control oxygen supplementation reviewed plan of care with patient this morning, discussed hospice, pt states "can't give an answer right now" I explained hospice, and offered to answer any questions that can help her make a decision Acute hypoxic respiratory failure: Room air saturations of 88-91% that likely drop significantly with exertion due to her diagnosis of advanced lung cancer. Generalized debility: Secondary to advanced lung cancer. Fall precautions. Type 2 diabetes mellitus: Will resume all medications. Accu-Cheks a.c. HS. Sliding scale insulin. Severe malnutrition: nutritional supplements, IVF SVT and hypotension : IVF, continue home metoprolol Dispo: pt signed DNR today, still in discussion with family regarding Hospice Time Spent Managing Pts Care (In Minutes): 35
[2019-12-13] MEDS ORDERED: TRAMADOL HCL 50 MG TAB PO PRN (12:38)
[2019-12-13] MEDS: INSULIN -REGULAR HUMAN 50 UNIT/0.5 ML ML SQ SCH ×2 (15:54→21:20)
[2019-12-13] MEDS: METOPROLOL TAR 25 MG TAB PO SCH (17:20)
[2019-12-13] MEDS ORDERED: VANCOMYCIN/NS 1 gm 1 GM/250 ML BAG IVPB SCH (18:00)
[2019-12-13] MEDS ORDERED: GABAPENTIN 300 MG CAP PO SCH (21:00)
[2019-12-13] MEDS ORDERED: CYCLOBENZAPRINE 10 MG TAB PO SCH (21:00)
[2019-12-13] MEDS: INSULIN GLARGINE 100 UNITS/ML SQ SCH (21:20)
[2019-12-13] MEDS ORDERED: LORazepam 2 MG/ML VIAL IV ONE (23:24)
[2019-12-14] MEDS: IPRATROPIUM BROM 0.5MG/2.5ML NEB SCH ×2 (01:50→07:43)
[2019-12-14] MEDS: NA CHLORIDE 0.9% 1,000 ML IV SCH (03:00)
[2019-12-14] MEDS: ALBUMIN HUMAN 25% 100 ML IV SCH (03:00)
[2019-12-14] MEDS: METOPROLOL TAR 25 MG TAB PO SCH (05:23)
[2019-12-14] MEDS ORDERED: LORAZEPAM 0.5 MG TABLET PO PRN (06:40)
--- NOTE | 2019-12-14 07:01 | EKG ---
Test Date: 2019-12-12 Test Time: 10:03:43 Project Analyst: KANE MEASUREMENT RESULTS: Intervals: Rate: 119 DE: 136 QRSD: 78 QT: 310 QTc: 436 [place]: P: 68 DE: 136 QRS: 14 T: 147 INTERPRETIVE STATEMENTS: Sinus tachycardia Low voltage QRS Septal infarct, age undetermined T wave abnormality, consider inferior ischemia T wave abnormality, consider anterolateral ischemia Abnormal ECG Compared to ECG 12/11/2019 21:07:08 No significant changes Electronically Signed On 12-14-19 07:00:12 CDT by Manuel Collado
[2019-12-14 08:35] VITALS: BP 123/72; TEMP 97.4
[2019-12-14] MEDS: CEFEPIME/SWI 1gm 10 ML IVP SCH (08:53)
[2019-12-14] MEDS: INSULIN -REGULAR HUMAN 50 UNIT/0.5 ML ML SQ SCH (08:54)
[2019-12-14] MEDS: METHYLPREDNISOLONE 125 MG INJ IV SCH (08:54)
[2019-12-14] MEDS: ENOXAPARIN 40 MG/0.4 ML SQ SCH (08:54)
[2019-12-14 09:23] VITALS: O2SAT 93
--- NOTE | 2019-12-14 14:43 | P.DS ---
Admission Date: 12/11/19 Discharge Date: 12/14/19 Disposition: HOSPICE-HOME Discharge Condition: SERIOUS Reason for Admission: Shortness of breath Consultations: Pulm - Dr. Gil. Nephrology - Dr. Vitale. Procedures: CXR: FINDINGS: Minimal left apical pneumothorax is still present. No change in position of the chest tube. Left parenchymal opacification and pleural opacification have not changed. Prominent interstitial markings in the right lung field also stable. Heart size within normal limits. No right-sided pleural effusion. Problem list Status post thoracentesis of the left lung Pleurx catheter secondary to pleural effusions in the setting of stage IV lung cancer Acute hypoxic respiratory failure. Generalized debility Type 2 diabetes. Severe malnutrition SVT Hypotension Brief History of Present Illness: Patient presented there after recent discharge from hospital due to feeling like she cannot breathe. No prior hospitalization she underwent clear x catheter placement for malignant pleural effusion secondary to her stage IV lung cancer. In the emergency room, patient was noted to have mild labored breathing. Her room air air oxygen saturations were 88-90%. Daughter reported that the patient desaturates and struggles with minimal effort and movement at home. She also reports no appetite or interest in eating. Hospital Course: The patient was admitted for further evaluation maintained on oxygen via nasal cannula. Long discussions were had with both the patient and her family. The patient ultimately decided on being discharged back home with hospice care. Vital Signs/Physical Exam: Temp Pulse Resp BP Pulse Ox 97.4 F 87 18 123/72 98 12/14/19 08:00 12/14/19 08:00 12/14/19 08:00 12/14/19 08:00 12/14/19 08:00 General: Alert, Cachectic, Other (Appears uncomfortable) HEENT: Sclerae nonicteric Neck: JVD not distended Respiratory: Diminished, Crackles/rales Cardiovascular: No edema, Regular rate/rhythm, Normal S1 S2 Gastrointestinal: Soft and benign, Non-distended, No tenderness Musculoskeletal: No erythema, No tenderness Integumentary: No rashes, No breakdown Neurological: Normal speech, Normal affect Laboratory Data at Discharge: WBC 22.2 K/uL (4.3-10.9) H* 12/12/19 06:20 Hgb 12.8 g/dL (12.0-15.0) 12/12/19 06:20 Hct 39.5 % (36.0-45.0) 12/12/19 06:20 Plt Count 357 K/uL (152-406) 12/12/19 06:20 PT 11.5 SECONDS (9.5-12.5) 12/11/19 18:18 INR 0.97 12/11/19 18:18 Sodium 138 mmol/L (136-145) 12/13/19 05:17 Potassium 4.9 mmol/L (3.5-5.1) 12/13/19 05:17 BUN 38 mg/dL (7-18) H 12/13/19 05:17 Creatinine 0.80 mg/dL (0.55-1.3) 12/13/19 05:17 Glucose 315 mg/dL (74-106) H 12/13/19 05:17 Magnesium 2.2 mg/dL (1.8-2.4) 12/13/19 05:17 Total Bilirubin 0.4 mg/dL (0.2-1.0) 12/11/19 18:18 AST 33 U/L (15-37) 12/11/19 18:18 ALT 18 U/L (12-78) 12/11/19 18:18 Alkaline Phosphatase 116 U/L (45-117) 12/11/19 18:18 Home Medications: Cyclobenzaprine [Flexeril*] 1 tab PO BEDTIME 12/08/19 Ergocalciferol (Vitamin D2) [Vitamin D2] 1 tab PO SEECOM 12/08/19 Folic Acid 1 tab PO DAILY 12/08/19 Gabapentin 2 tab PO BEDTIME 12/08/19 Metformin HCl 500 mg PO BID 12/08/19 Tramadol HCl [Ultram] 1 tab PO BID PRN 12/08/19 dexAMETHasone [Dexamethasone] 2 mg PO TID 12/08/19 Metoprolol Tartrate [Lopressor*] 25 mg PO BID 6AM 6PM 30 Days #60 tab 12/10/19 Diet: Regular Activity: Ad cynthia Time spent managing pt's care (in minutes): 55
[2019-12-14] MEDS ORDERED: GLUCERNA SHAKE 237 ML CAN PO SCH (21:00)
[2019-12-14] MEDS ORDERED: JUVEN PACKET PO SCH (21:00)
== END 2019-12-14 09:32 | disposition hospice, home (50) ==
LOC: ER 16:58 → ERHOLD 19:47 → 2ND 20:57
PROVIDERS: ADMIT Family Medicine; ATTEND Hospitalist
DX: J96.01 Acute respiratory failure with hypoxia (principal); C34.92 Malignant neoplasm of unspecified part of left bronchus or lung; C79.31 Secondary malignant neoplasm of brain; J44.9 Chronic obstructive pulmonary disease, unspecified; R53.81 Other malaise; E11.9 Type 2 diabetes mellitus without complications; E43 Unspecified severe protein-calorie malnutrition; Z68.1 Body mass index [BMI] 19.9 or less, adult; I47.1 Supraventricular tachycardia; J93.9 Pneumothorax, unspecified; I95.9 Hypotension, unspecified; E78.5 Hyperlipidemia, unspecified; I10 Essential (primary) hypertension; F32.9 Major depressive disorder, single episode, unspecified; G25.81 Restless legs syndrome; Z79.84 Long term (current) use of oral hypoglycemic drugs; Z79.899 Other long term (current) drug therapy; Z87.891 Personal history of nicotine dependence
CPT/HCPCS: 93005 ×2; 87040; 87088; 85025 ×2; 87086; 80048 ×3; 36415 ×3; 83735 ×3; 85610; 82947 ×10; 80076; 83605 ×2; 84484; 83880; 71045; 94640 ×10; 96360; 99285; J1650 ×3; J3370 ×2; J3475; P9047 ×6; J0692 ×3; J7030 ×4; J2930 ×4; G0378 ×5; 81003; 81015; J1815; J7050